=== PATIENT | female | born 1930 | race Caucasian/White ===

== ENCOUNTER 2017-06-18 09:47 | Emergency (ER) | payer MEDICARE, OTHER ==
[2017-06-18] MEDS ORDERED: Sodium Chloride 0.9% 10 ML Syringe FLUSH PRN (10:57)
--- NOTE | 2017-06-18 11:21 | EDM.PDOC ---
ED HPI GENERAL MEDICAL PROBLEM - General Chief Complaint: General Stated Complaint: LOW HEMOGLOBIN Time Seen by Provider: 06/18/17 10:27 Source of Information: Reports: Patient, Family History Limitations: Reports: No Limitations - History of Present Illness INITIAL COMMENTS - FREE TEXT/NARRATIVE: The patient presents with generalized weakness, shortness of breath, and anemia. Dr Bernard is her doctor and her Hgb has been going down. Last week it was 7.6. She had antibodies and Dr Bernard was going to talk to the decorator consultant. She is now more weak and more short of breath. She denies fever , chills, cough, nausea, vomiting or abdominal pain. She does not have an appetite. With any exertion she gets shortness of breath. She has no chest pain. She says her stools have been dark but she has been taking iron. Onset: Gradual Duration: Week(s): Severity: Moderate Improves with: Reports: Immobilization Worsens with: Reports: Movement Context: Reports: Activity Associated Symptoms: Reports: Shortness of Breath. Denies: Chest Pain, Cough, Fever/Chills, Headaches, Nausea/Vomiting - Related Data Allergies Allergy/AdvReac Type Severity Reaction Status Date / Time No Known Allergies Allergy Verified 10/18/15 16:19 Home Meds: Home Meds Allopurinol [Zyloprim] 100 mg PO DAILY 10/11/14 [History] Amitriptyline [Elavil] 50 mg PO BEDTIME 10/11/14 [History] Fluticasone/Salmeterol [Advair 100-50] 1 puff INH DAILY 10/11/14 [History] Furosemide [Lasix] 20 mg PO DAILY 10/11/14 [History] Omeprazole 20 mg PO BIDAC 10/11/14 [History] Hydrocodone/Acetaminophen [Hydrocodon-Acetaminophen 5-325] 1 each PO Q4H #5 tablet 04/15/15 [Rx] Enalapril [Vasotec] 5 mg PO DAILY 07/05/15 [History] Aspirin [Ecotrin] 1 tab PO DAILY 06/18/17 [History] Carvedilol [Carvedilol] 1 tab PO BID 06/18/17 [History] Iron Polysaccharides Complex [Ferrex 150] 1 cap PO DAILY 06/18/17 [History] Ursodiol [Ursodiol] 1 tab PO DAILY 06/18/17 [History] Past Medical History HEENT History: Reports: Hard of Hearing Cardiovascular History: Reports: Hypertension Respiratory History: Reports: COPD Gastrointestinal History: Reports: Other (See Below) Other Gastrointestinal History: esophageal strictures Genitourinary History: Reports: UTI, Recurrent Musculoskeletal History: Reports: Arthritis Hematologic History: Reports: Anemia Dermatologic History: Reports: Benign Melanoma - Past Surgical History HEENT Surgical History: Reports: Tonsillectomy GI Surgical History: Reports: Cholecystectomy, Colonoscopy, EGD, Esophageal Dilatation Female Surgical History: Reports: Mastectomy Musculoskeletal Surgical History: Reports: Hip Replacement, Knee Replacement, Shoulder Replacement Other Musculoskeletal Surgeries/Procedures:: spinal stenosis surgery Social & Family History - Tobacco Use Smoking Status *Q: Never Smoker Years of Tobacco use: 53 Used Tobacco, but Quit: Yes Month Tobacco Last Used: 13 yrs Second Hand Smoke Exposure: No - Caffeine Use Caffeine Use: Reports: Soda - Alcohol Use Days Per Week of Alcohol Use: 0 - Recreational Drug Use Recreational Drug Use: No ED ROS GENERAL - Review of Systems Review Of Systems: See Below Constitutional: Reports: No Symptoms HEENT: Reports: No Symptoms Respiratory: Reports: Shortness of Breath. Denies: Cough Cardiovascular: Reports: No Symptoms Endocrine: Reports: No Symptoms GI/Abdominal: Reports: No Symptoms : Reports: No Symptoms Musculoskeletal: Reports: No Symptoms Skin: Reports: No Symptoms ED EXAM, GENERAL - Physical Exam Exam: See Below Exam Limited By: No Limitations General Appearance: Alert, No Apparent Distress Ears: Normal External Exam Nose: Normal Inspection Head: Atraumatic, Normocephalic Neck: Normal Inspection Respiratory/Chest: No Respiratory Distress, Lungs Clear, Normal Breath Sounds Cardiovascular: Normal Peripheral Pulses, Regular Rate, Rhythm, No Edema GI/Abdominal: Soft, Non-Tender, No Organomegaly, No Mass Rectal (Female) Exam: Heme + Stool (Weak) Back Exam: Normal Inspection Extremities: Other (Areas of ecchymosis) Neurological: Alert, Oriented, No Motor/Sensory Deficits Skin Exam: Other (Areas of ecchymosis on her chest, arms and leg) Course - Vital Signs Last Recorded V/S: Last Vital Signs Temp 97.2 F 06/18/17 10:00 Pulse 75 06/18/17 10:00 Resp 22 H 06/18/17 10:00 BP 113/62 06/18/17 10:00 Pulse Ox 93 L 06/18/17 10:00 - Orders/Labs/Meds Orders: Active Orders 24 hr Category Date Time Status Peripheral IV Care [RC] . DIRECTED Care 06/18/17 10:57 Active TYPE AND SCREEN [BBK] Stat Lab 06/18/17 10:26 Results Sodium Chloride 0.9% [Saline Flush] Med 06/18/17 10:57 Active 10 ml FLUSH ASDIRECTED PRN Peripheral IV Insertion Adult [OM.PC] Routine Oth 06/18/17 10:57 Ordered Medication Orders Sodium Chloride (Saline Flush) 10 ml FLUSH ASDIRECTED PRN PRN Reason: Keep Vein Open Last Admin: 06/18/17 11:20 Dose: 10 ml Labs: Laboratory Tests 06/18/17 06/18/17 06/18/17 Range/Units 10:26 10:26 10:26 WBC 3.86 L (3.98-10.04) K/mm3 RBC 1.78 L (3.98-5.22) M/mm3 Hgb 6.7 L* (11.2-15.7) gm/L Hct 21.8 L (34.1-44.9) % MCV 122.5 H (79.4-94.8) fl MCH 37.6 H (25.6-32.2) pg MCHC 30.7 L (32.2-35.5) g/dl RDW Std Deviation 56.9 H (36.4-46.3) fL Plt Count 157 L (182-369) K/mm3 MPV 9.0 L (9.4-12.3) fl Neut % (Auto) 84.0 H (34.0-71.1) % Lymph % (Auto) 6.5 L (19.3-51.7) % [place] % (Auto) 6.7 (4.7-12.5) % Eos % (Auto) 2.3 (0.7-5.8) Baso % (Auto) 0.5 (0.1-1.2) % Neut # (Auto) 3.24 (1.56-6.13) K/mm3 Lymph # (Auto) 0.25 L (1.18-3.74) K/mm3 [place] # (Auto) 0.26 (0.24-0.36) K/mm3 Eos # (Auto) 0.09 (0.04-0.36) K/mm3 Baso # (Auto) 0.02 (0.01-0.08) K/mm3 Manual Slide Review Abnormal smear PT (8.0-13.0) SECONDS INR Sodium 142 (136-145) mEq/L Potassium 5.1 (3.5-5.1) mEq/L Chloride 109 H (98-107) mEq/L Carbon Dioxide 28 (21-32) mEq/L Anion Gap 10.1 (5-15) BUN 45 H (7-18) mg/dL Creatinine 1.8 H (0.55-1.02) mg/dL Est Cr Clr Drug Dosing 17.87 mL/min Estimated GFR (MDRD) 27 (>60) mL/min BUN/Creatinine Ratio 25.0 H (14-18) Glucose 117 H (83-115) mg/dL Calcium 8.4 L (8.5-10.1) mg/dL Total Bilirubin 1.2 H (0.2-1.0) mg/dL AST 18 (15-37) U/L ALT 17 (14-59) U/L Alkaline Phosphatase 61 (46-116) U/L Total Protein 5.0 L (6.4-8.2) g/dl Albumin 2.2 L (3.4-5.0) g/dl Globulin 2.8 gm/dL Albumin/Globulin Ratio 0.8 L (1-2) Blood Type A POSITIVE 06/18/17 Range/Units 10:26 WBC (3.98-10.04) K/mm3 RBC (3.98-5.22) M/mm3 Hgb (11.2-15.7) gm/L Hct (34.1-44.9) % MCV (79.4-94.8) fl MCH (25.6-32.2) pg MCHC (32.2-35.5) g/dl RDW Std Deviation (36.4-46.3) fL Plt Count (182-369) K/mm3 MPV (9.4-12.3) fl Neut % (Auto) (34.0-71.1) % Lymph % (Auto) (19.3-51.7) % [place] % (Auto) (4.7-12.5) % Eos % (Auto) (0.7-5.8) Baso % (Auto) (0.1-1.2) % Neut # (Auto) (1.56-6.13) K/mm3 Lymph # (Auto) (1.18-3.74) K/mm3 [place] # (Auto) (0.24-0.36) K/mm3 Eos # (Auto) (0.04-0.36) K/mm3 Baso # (Auto) (0.01-0.08) K/mm3 Manual Slide Review PT 9.9 (8.0-13.0) SECONDS INR 0.91 Sodium (136-145) mEq/L Potassium (3.5-5.1) mEq/L Chloride (98-107) mEq/L Carbon Dioxide (21-32) mEq/L Anion Gap (5-15) BUN (7-18) mg/dL Creatinine (0.55-1.02) mg/dL Est Cr Clr Drug Dosing mL/min Estimated GFR (MDRD) (>60) mL/min BUN/Creatinine Ratio (14-18) Glucose (83-115) mg/dL Calcium (8.5-10.1) mg/dL Total Bilirubin (0.2-1.0) mg/dL AST (15-37) U/L ALT (14-59) U/L Alkaline Phosphatase (46-116) U/L Total Protein (6.4-8.2) g/dl Albumin (3.4-5.0) g/dl Globulin gm/dL Albumin/Globulin Ratio (1-2) Blood Type Meds: Medications Generic Name Dose Route Start Last Admin Trade Name Bobbyq PRN Reason Stop Dose Admin Sodium Chloride 10 ml 06/18/17 10:57 06/18/17 11:20 Saline Flush FLUSH 10 ml ASDIRECTED PRN Administration Keep Vein Open - Re-Assessments/Exams Free Text/Narrative Re-Assessment/Exam: 06/18/17 12:12 I ordered an IV saline lock and labs. Her WBC was a little low at 3.86. Her Hgb was low at 6.7. Her platelets were a little low at 157. Her creatinine was elevated at 1.8. Her creatinine was that high before. Her glucose was 117. Her total bili was elevated at 1.2 Her stool guiac was weakly positive. Lab called and said she has antibodies in her blood and we will not be able to give her blood from here. I called [facility] in [place] and talked with Dr Cochran and he agreed to the transfer. 06/18/17 12:21 I wanted to send the patient by ambulance but she refused. She will got with family. Departure - Departure Time of Disposition: 12:30 Disposition: DC/Tfer to Acute Hospital 02 Condition: Fair Clinical Impression: Renal insufficiency, Dyspnea on exertion Anemia Qualifiers: Anemia type: other cause Other causes of anemia: other cause, not classified Qualified Code(s): D64.89 - Other specified anemias GI bleed Qualifiers: GI bleed type/associated pathology: unspecified gastrointestinal hemorrhage type Qualified Code(s): K92.2 - Gastrointestinal hemorrhage, unspecified - Discharge Information Referrals: Senthil Bernard Jr, MD [Primary Care Provider] - Forms: ED Department Discharge - My Orders Last 24 Hours: My Active Orders 06/18/17 10:26 TYPE AND SCREEN [BBK] Stat 06/18/17 10:57 Peripheral IV Care [RC] . DIRECTED Sodium Chloride 0.9% [Saline Flush] 10 ml FLUSH ASDIRECTED PRN Peripheral IV Insertion Adult [OM.PC] Routine - Assessment/Plan Last 24 Hours: My Active Orders 06/18/17 10:26 TYPE AND SCREEN [BBK] Stat 06/18/17 10:57 Peripheral IV Care [RC] . DIRECTED Sodium Chloride 0.9% [Saline Flush] 10 ml FLUSH ASDIRECTED PRN Peripheral IV Insertion Adult [OM.PC] Routine
[2017-06-18 13:18] VITALS: BP 153/56
== END 2017-06-18 13:15 ==
LOC: JD.ED 09:47
DX: K92.2 Gastrointestinal hemorrhage, unspecified (principal); D64.89 Other specified anemias; N28.9 Disorder of kidney and ureter, unspecified; R06.09 Other forms of dyspnea; I10 Essential (primary) hypertension; J44.9 Chronic obstructive pulmonary disease, unspecified; Z87.440 Personal history of urinary (tract) infections; Z90.49 Acquired absence of other specified parts of digestive tract; Z98.890 Other specified postprocedural states; Z96.649 Presence of unspecified artificial hip joint; Z79.899 Other long term (current) drug therapy; Z79.82 Long term (current) use of aspirin; Z96.659 Presence of unspecified artificial knee joint; Z96.619 Presence of unspecified artificial shoulder joint
CPT/HCPCS: 36415; 80053; 85025; 85610; 99285; J7050; 86850; 86870; 86900; 86901

== ENCOUNTER 2017-08-13 09:24 | Inpatient (IN) | payer MEDICARE, OTHER ==
[2017-08-13] MEDS ORDERED: Sodium Chloride 0.9% 10 ML Syringe FLUSH PRN (09:43)
--- NOTE | 2017-08-13 10:16 | EDM.PDOC ---
ED HPI GENERAL MEDICAL PROBLEM - General Chief Complaint: Fever Stated Complaint: [facility] Time Seen by Provider: 08/13/17 09:43 Source of Information: Reports: Patient, Family, RN Notes Reviewed (87-year-old female comes in with fever chills that started about 8 hours ago during the night. 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 She has other medical problems , see old records for details. She did have a blood transfusion 6 days ago. She is not coughing. Has been voiding somewhat more frequently. She feels more short of breath than usual. Chest or abdominal pain at this time. No nausea or vomiting this morning.) - History of Present Illness INITIAL COMMENTS - FREE TEXT/NARRATIVE: 87-year-old female has been brought in by ambulance for evaluation of fever, weakness and shortness of breath. She started with some fever and chills during the night. Temp was reportedly 101 early this morning. She has not been feeling well for the last month or 2 with diagnosis of "hemolytic anemia" last having had a transfusion last Thursday 6 days ago. Does have history of chronic CHF. She has been having increasing right leg discomfort the past several days and increasing redness with some mild weeping of the leg posteriorly for the last day or 2. She states she bruises very easily. She's not been coughing any more than usual. Denies nasal or sinus congestion or sore throat. No voiding dysuria but she does have voiding frequency. She also states her mouth feels very dry this morning. No nausea or vomiting. No current abdominal discomfort. - Related Data Allergies Allergy/AdvReac Type Severity Reaction Status Date / Time No Known Allergies Allergy Verified 08/13/17 09:29 Home Meds: Home Meds Allopurinol [Zyloprim] 100 mg PO DAILY 10/11/14 [History] Amitriptyline [Elavil] 25 - 50 mg PO BEDTIME 10/11/14 [History] Fluticasone/Salmeterol [Advair 100-50] 1 puff INH DAILY 10/11/14 [History] Furosemide [Lasix] 60 mg PO DAILY 10/11/14 [History] Omeprazole 20 mg PO BIDAC 10/11/14 [History] Enalapril [Vasotec] 5 mg PO DAILY 07/05/15 [History] Carvedilol [Carvedilol] 12.5 mg PO BID 06/18/17 [History] Iron Polysaccharides Complex [Ferrex 150] 1 cap PO DAILY 06/18/17 [History] Ursodiol [Ursodiol] 300 mg PO DAILY 06/18/17 [History] Aspirin [Adult Low Dose Aspirin EC] 324 mg PO DAILY 08/13/17 [History] Hydrocodone/Acetaminophen [Hydrocodon-Acetaminophen 5-325] 1 tab PO TID PRN 11/28 [History] L.acidoph,Paracasei, B.lactis [Probiotic] 1 cap PO DAILY 08/13/17 [History] Prednisone [IJD: Prednisone] 10 mg PO DAILY 08/13/17 [History] Vit A/Vit C/Vit E/Zinc/Copper [Icaps Areds Formula] 2 tab PO DAILY 08/13/17 [ History] Past Medical History HEENT History: Reports: Hard of Hearing Cardiovascular History: Reports: Hypertension Respiratory History: Reports: COPD Gastrointestinal History: Reports: Other (See Below) Other Gastrointestinal History: esophageal strictures Genitourinary History: Reports: UTI, Recurrent Musculoskeletal History: Reports: Arthritis Hematologic History: Reports: Anemia Dermatologic History: Reports: Benign Melanoma - Past Surgical History HEENT Surgical History: Reports: Tonsillectomy GI Surgical History: Reports: Cholecystectomy, Colonoscopy, EGD, Esophageal Dilatation Female Surgical History: Reports: Mastectomy Musculoskeletal Surgical History: Reports: Hip Replacement, Knee Replacement, Shoulder Replacement Other Musculoskeletal Surgeries/Procedures:: spinal stenosis surgery Social & Family History - Tobacco Use Smoking Status *Q: Never Smoker Years of Tobacco use: 53 Used Tobacco, but Quit: Yes Month Tobacco Last Used: 13 yrs Second Hand Smoke Exposure: No - Caffeine Use Caffeine Use: Reports: Soda - Alcohol Use Days Per Week of Alcohol Use: 0 - Recreational Drug Use Recreational Drug Use: No ED ROS GENERAL - Review of Systems Review Of Systems: See Below Constitutional: Reports: Fever HEENT: Denies: Sinus Problem, Throat Pain Respiratory: Reports: Shortness of Breath (Chronically). Denies: Cough Cardiovascular: Denies: Chest Pain Endocrine: Reports: Fatigue GI/Abdominal: Reports: Constipation (Chronically). Denies: Abdominal Pain, Nausea, Vomiting Musculoskeletal: Reports: Back Pain (Low back), Leg Pain (Right lower posterior leg) Skin: Reports: Erythema (Right posterior leg) Neurological: Reports: Dizziness, Weakness (Generalized). Denies: Trouble Speaking Hematologic/Lymphatic: Reports: Anemia ED EXAM, SEPSIS - Physical Exam Exam: See Below General Appearance: Alert, Mild Distress Throat/Mouth: Normal Inspection, Normal Oropharynx, Other (Oral mucosa somewhat dry) Head: Atraumatic. No: Facial Swelling Neck: Supple Respiratory/Chest: Respiratory Distress. No: Rales (Moderate tachypnea), Rhonchi, Wheezing Cardiovascular: Regular Rate, Rhythm, Tachycardia (Heart rate 103 on arrival) GI/Abdominal Exam: Soft, Non-Tender. No: Guarding Extremities: Leg Pain, Increased Warmth (Right posterior lower leg), Redness ( Right lower posterior leg), Other (Small area of weeping) Neurological: Alert, Oriented, No Motor/Sensory Deficits Skin: Warm, Dry EKG INTERPRETATION EKG Date: 08/13/17 Rhythm: NSR [place]: Normal P-Wave: Present QRS: Normal ST-T: Normal Course - Vital Signs Last Recorded V/S: Last Vital Signs Temp 99.4 F 08/13/17 09:30 Pulse 103 H 08/13/17 09:30 Resp 32 H 08/13/17 09:30 BP 156/66 H 08/13/17 09:30 Pulse Ox 94 L 08/13/17 09:30 - Orders/Labs/Meds Orders: Active Orders 24 hr Category Date Time Status EKG 12 Lead [EKG Documentation Completion] [RC] STAT Care 08/13/17 09:44 Active Peripheral IV Care [RC] . DIRECTED Care 08/13/17 09:45 Active CULTURE BLOOD [BC] Stat Lab 08/13/17 10:30 Received CULTURE BLOOD [BC] Stat Lab 08/13/17 10:45 Received Sodium Chloride 0.9% [Saline Flush] Med 08/13/17 09:43 Active 10 ml FLUSH ASDIRECTED PRN Peripheral IV Insertion Adult [OM.PC] Stat Oth 08/13/17 09:44 Ordered Medication Orders Sodium Chloride (Saline Flush) 10 ml FLUSH ASDIRECTED PRN PRN Reason: Keep Vein Open Last Admin: 08/13/17 10:27 Dose: 10 ml Labs: Laboratory Tests 08/13/17 08/13/17 08/13/17 Range/Units 10:07 10:07 10:23 WBC 9.61 (3.98-10.04) K/mm3 RBC 2.57 L (3.98-5.22) M/mm3 Hgb 9.0 L (11.2-15.7) gm/L Hct 28.3 L (34.1-44.9) % MCV 110.1 H (79.4-94.8) fl MCH 35.0 H (25.6-32.2) pg MCHC 31.8 L (32.2-35.5) g/dl RDW Std Deviation 53.4 H (36.4-46.3) fL Plt Count 131 L (182-369) K/mm3 MPV 9.2 L (9.4-12.3) fl Neut % (Auto) 91.0 H (34.0-71.1) % Lymph % (Auto) 1.6 L (19.3-51.7) % [place] % (Auto) 7.0 (4.7-12.5) % Eos % (Auto) 0.1 L (0.7-5.8) Baso % (Auto) 0.1 (0.1-1.2) % Neut # (Auto) 8.75 H (1.56-6.13) K/mm3 Lymph # (Auto) 0.15 L (1.18-3.74) K/mm3 [place] # (Auto) 0.67 H (0.24-0.36) K/mm3 Eos # (Auto) 0.01 L (0.04-0.36) K/mm3 Baso # (Auto) 0.01 (0.01-0.08) K/mm3 Manual Slide Review Abnormal smear Sodium 144 (136-145) mEq/L Potassium 3.9 (3.5-5.1) mEq/L Chloride 108 H (98-107) mEq/L Carbon Dioxide 28 (21-32) mEq/L Anion Gap 11.9 (5-15) BUN 39 H (7-18) mg/dL Creatinine 1.4 H (0.55-1.02) mg/dL Est Cr Clr Drug Dosing 23.99 mL/min Estimated GFR (MDRD) 35 (>60) mL/min BUN/Creatinine Ratio 27.9 H (14-18) Glucose 98 (83-115) mg/dL Lactic Acid (0.4-2.0) mmol/L Calcium 7.8 L (8.5-10.1) mg/dL Total Bilirubin 0.8 (0.2-1.0) mg/dL AST 21 (15-37) U/L ALT 16 (14-59) U/L Alkaline Phosphatase 54 (46-116) U/L C-Reactive Protein 1.8 H* (<1.0) mg/dL NT-Pro-B Natriuret Pep 3860 H (0-450) pg/mL Total Protein 4.3 L (6.4-8.2) g/dl Albumin 1.9 L (3.4-5.0) g/dl Globulin 2.4 gm/dL Albumin/Globulin Ratio 0.8 L (1-2) Urine Color Yellow (Yellow) Urine Appearance Slt cloudy H (Clear) Urine pH 6.0 (5.0-8.0) Ur Specific [place] 1.020 (1.005-1.030) Urine Protein 3+ H (Negative) Urine Glucose (UA) Negative (Negative) Urine Ketones Negative (Negative) Urine Occult Blood 1+ H (Negative) Urine Nitrite Negative (Negative) Urine Bilirubin Negative (Negative) Urine Urobilinogen 4.0 H (0.2-1.0) Ur Leukocyte Esterase Negative (Negative) Urine RBC 5-10 H (0-5) /hpf Urine WBC 0-5 (0-5) /hpf Ur Epithelial Cells 0-5 (0-5) /hpf Amorphous Sediment Moderate H (NOT SEEN) /hpf Urine Bacteria Moderate H (FEW) /hpf Urine Mucus Not seen (FEW) /hpf 08/13/17 Range/Units 10:30 WBC (3.98-10.04) K/mm3 RBC (3.98-5.22) M/mm3 Hgb (11.2-15.7) gm/L Hct (34.1-44.9) % MCV (79.4-94.8) fl MCH (25.6-32.2) pg MCHC (32.2-35.5) g/dl RDW Std Deviation (36.4-46.3) fL Plt Count (182-369) K/mm3 MPV (9.4-12.3) fl Neut % (Auto) (34.0-71.1) % Lymph % (Auto) (19.3-51.7) % [place] % (Auto) (4.7-12.5) % Eos % (Auto) (0.7-5.8) Baso % (Auto) (0.1-1.2) % Neut # (Auto) (1.56-6.13) K/mm3 Lymph # (Auto) (1.18-3.74) K/mm3 [place] # (Auto) (0.24-0.36) K/mm3 Eos # (Auto) (0.04-0.36) K/mm3 Baso # (Auto) (0.01-0.08) K/mm3 Manual Slide Review Sodium (136-145) mEq/L Potassium (3.5-5.1) mEq/L Chloride (98-107) mEq/L Carbon Dioxide (21-32) mEq/L Anion Gap (5-15) BUN (7-18) mg/dL Creatinine (0.55-1.02) mg/dL Est Cr Clr Drug Dosing mL/min Estimated GFR (MDRD) (>60) mL/min BUN/Creatinine Ratio (14-18) Glucose (83-115) mg/dL Lactic Acid 1.5 (0.4-2.0) mmol/L Calcium (8.5-10.1) mg/dL Total Bilirubin (0.2-1.0) mg/dL AST (15-37) U/L ALT (14-59) U/L Alkaline Phosphatase (46-116) U/L C-Reactive Protein (<1.0) mg/dL NT-Pro-B Natriuret Pep (0-450) pg/mL Total Protein (6.4-8.2) g/dl Albumin (3.4-5.0) g/dl Globulin gm/dL Albumin/Globulin Ratio (1-2) Urine Color (Yellow) Urine Appearance (Clear) Urine pH (5.0-8.0) Ur Specific [place] (1.005-1.030) Urine Protein (Negative) Urine Glucose (UA) (Negative) Urine Ketones (Negative) Urine Occult Blood (Negative) Urine Nitrite (Negative) Urine Bilirubin (Negative) Urine Urobilinogen (0.2-1.0) Ur Leukocyte Esterase (Negative) Urine RBC (0-5) /hpf Urine WBC (0-5) /hpf Ur Epithelial Cells (0-5) /hpf Amorphous Sediment (NOT SEEN) /hpf Urine Bacteria (FEW) /hpf Urine Mucus (FEW) /hpf Meds: Medications Generic Name Dose Route Start Last Admin Trade Name Freq PRN Reason Stop Dose Admin Sodium Chloride 10 ml 08/13/17 09:43 08/13/17 10:27 Saline Flush FLUSH 10 ml ASDIRECTED PRN Administration Keep Vein Open Discontinued Medications Generic Name Dose Route Start Last Admin Trade Name Freq PRN Reason Stop Dose Admin Piperacillin Sod/Tazobactam 100 mls @ 200 mls/hr 08/13/17 12:51 08/13/17 13: 33 Sod 4.5 gm/ Sodium Chloride IV 08/13/17 13:20 200 mls/hr ONETIME ONE Administration Sodium Chloride Confirm 08/13/17 13:21 08/13/17 13:34 Normal Saline Administered 08/13/17 13:22 Not Given Dose 100 mls @ as directed .ROUTE .[facility] - Re-Assessments/Exams Free Text/Narrative Re-Assessment/Exam: 08/13/17 13:06. White blood count came back high normal at 9600, hemoglobin 9.0. Lactic acid 1.5. Catheter UA did show bacteria so she does have at least a low-grade UTI. I do believe her main problem at this time is the cellulitis of her right lower leg. Zosyn 4.5 g IV has been ordered. I discussed with daughter and patient CODE STATUS and she does not want to be intubated or defibrillated, therefore DNR status at this time. Blood cultures 2 were ordered. Believe she is septic. Although she was sepsis alert I did not bolus her with fluid due to her underlying congestive heart failure, tachypnea on arrival to ED. With the cellulitis she does qualify for inpatient admission. Patient will be admitted at this time. Departure - Departure Time of Disposition: 12:52 Disposition: Admitted As Inpatient 66 Clinical Impression: Cellulitis Qualifiers: Site of cellulitis: extremity Site of cellulitis of extremity: lower extremity Laterality: right Qualified Code(s): L03.115 - Cellulitis of right lower limb UTI (urinary tract infection) Qualifiers: Urinary tract infection type: acute cystitis Hematuria presence: without hematuria Qualified Code(s): N30.00 - Acute cystitis without hematuria Congestive heart failure Qualifiers: Congestive heart failure type: unspecified congestive heart failure type Congestive heart failure chronicity: acute on chronic Qualified Code(s): I50.9 - Heart failure, unspecified Anemia Qualifiers: Anemia type: other cause Other causes of anemia: other cause, not classified Qualified Code(s): D64.89 - Other specified anemias - Discharge Information Referrals: Judie Green [Primary Care Provider] - Forms: ED Department Discharge - My Orders Last 24 Hours: My Active Orders 08/13/17 09:43 Sodium Chloride 0.9% [Saline Flush] 10 ml FLUSH ASDIRECTED PRN 08/13/17 09:44 EKG 12 Lead [EKG Documentation Completion] [RC] STAT Peripheral IV Insertion Adult [OM.PC] Stat 08/13/17 09:45 Peripheral IV Care [RC] . DIRECTED 08/13/17 10:30 CULTURE BLOOD [BC] Stat 08/13/17 10:45 CULTURE BLOOD [BC] Stat - Assessment/Plan Last 24 Hours: My Active Orders 08/13/17 09:43 Sodium Chloride 0.9% [Saline Flush] 10 ml FLUSH ASDIRECTED PRN 08/13/17 09:44 EKG 12 Lead [EKG Documentation Completion] [RC] STAT Peripheral IV Insertion Adult [OM.PC] Stat 08/13/17 09:45 Peripheral IV Care [RC] . DIRECTED 08/13/17 10:30 CULTURE BLOOD [BC] Stat 08/13/17 10:45 CULTURE BLOOD [BC] Stat
--- NOTE | 2017-08-13 10:31 | CR ---
Chest: Portable view of the chest was obtained. Comparison: Previous chest x-ray of 10/18/15. Stable scarring within the right mid lung is seen. Blunting of the right lateral costophrenic angle is seen which is stable. Lungs otherwise are clear. Bilateral shoulder prosthesis are seen. Heart size is normal. Tortuous thoracic aorta is seen. Bony structures are osteopenic. Slight scoliosis is noted. Degenerative change is scattered within the spine. Impression: 1. Findings as noted above. No significant change is seen from prior chest x-ray. Nothing acute is identified. Diagnostic code #2
[2017-08-13] MEDS ORDERED: Piperacillin/Tazobactam 4.5 GM in Sodium Chloride 0.9% 100 ML IV ONE (12:51)
[2017-08-13] MEDS ORDERED: Sodium Chloride 0.9% 100 ML ONE (13:21)
[2017-08-13] MEDS ORDERED: Albuterol/Ipratropium 3.0-0.5 MG/3 ML Neb Soln NEB PRN (16:08)
[2017-08-13] MEDS ORDERED: Acetaminophen 325 MG Tab PO PRN (16:08)
[2017-08-13] MEDS ORDERED: Ondansetron 4 MG Tab.DIS PO PRN (16:08)
[2017-08-13] MEDS ORDERED: Docusate Sodium 100 MG Cap PO PRN (16:08)
[2017-08-13] MEDS ORDERED: Ondansetron 4 MG/2 ML SDV IV PRN (16:08)
[2017-08-13] MEDS ORDERED: Temazepam 7.5 MG Cap PO PRN (16:08)
[2017-08-13] MEDS ORDERED: Polyethylene Glycol 3350 Powder 17 GM Packet PO PRN (16:08)
[2017-08-13] MEDS ORDERED: Acetaminophen/HYDROcodone 325-5 MG Tab PO PRN (16:08)
[2017-08-13] MEDS ORDERED: Bisacodyl 5 MG Tab PO PRN (16:08)
[2017-08-13] MEDS ORDERED: Furosemide 40 MG/4 ML VIAL IVPUSH ONE ×2 (16:14→21:35)
[2017-08-13] MEDS ORDERED: Metoprolol Tartrate 5 MG/5 ML SDV IVPUSH PRN (16:25)
[2017-08-13] MEDS ORDERED: hydrALAZINE 10 MG Tab PO PRN (16:25)
--- NOTE | 2017-08-13 16:39 | PCM.HP ---
H&P History of Present Illness - General Date of Service: 08/13/17 Admit Problem/Dx: Admission Diagnosis/Problem Admission Diagnosis/Problem Cellulitis of right lower extremity Source of Information: Patient, Old Records, Provider, RN, RN Notes Reviewed History Limitations: Reports: No Limitations - History of Present Illness Initial Comments - Free Text/Narative: Jill Shankar is an 87 yo female who presented to our ED today (08/13/17) via ambulance with a fever, weakness, and shortness of breath. Fever and chills are poorly started last night with a temperature of 101. She's been feeling poor for the last couple of months with a diagnosis of "hemolytic anemia. She received transfusion last Thursday, 6 days ago she is a history of chronic heart failure. She reports increased right leg discomfort with redness and mild weeping posteriorly. This has been going on for 2 days. She reports very easy bruising. She has a chronic cough but has not been coughing more than usual, denies nasal or sinus congestion. She denies sore throat. Denies dysuria but does report increased voiding frequency. No nausea or vomiting. No current abdominal discomfort. Upon presentation to the ED and picture was 99.4. pulse was tachycardic at 103. Respirations were At 32. Blood pressure was elevated at 156/66. Pulse ox is low at 94. Twelve-lead EKG was obtained and interpreted by ED provider as normal sinus rhythm. Labs are obtained: White blood cell was normal at 9.61. Hemoglobin low at 9. Hematocrit low at 20.3. She was macrocytic. Platelets are low at 131,000. Neutrophils elevated at 91. Sodium normal at 144. Potassium normal at 3.9. Chloride high at 108. Carbon dioxide normal at 28. Anion gap normal at 11.9. BUN elevated at 39. Creatinine elevated at 1.4. EGFR 35. Glucose normal at 98. Lactic acid was 1.5. Calcium low at 7.8. Bilirubin normal at 0.8. Liver enzymes were normal with AST at 21, ALT at 16, alkaline phosphatase at 54. CRP was elevated at 8.1. ProBNP elevated at 3860. Albumin was low at 1.9. She does appear to have a UTI as well. Zosyn was started in the ED. Blood cultures 2 were obtained. She carries a history of heart failure, hypertension, COPD, esophageal strictures, current UTIs, arthritis, anemia, melanoma. Of note she has had a prior right knee replacement. She is a former smoker. She was subsequently admitted to a medical floor with telemetry. Her primary care provider is Dr. Bernard at [facility] in [place]. CODE STATUS is DNR/DNI. - Related Data Allergies/Adverse Reactions: Allergies Allergy/AdvReac Type Severity Reaction Status Date / Time No Known Allergies Allergy Verified 08/13/17 09:29 Home Medications: Home Meds Allopurinol [Zyloprim] 100 mg PO DAILY 10/11/14 [History] Amitriptyline [Elavil] 25 - 50 mg PO BEDTIME 10/11/14 [History] Fluticasone/Salmeterol [Advair 100-50] 1 puff INH DAILY 10/11/14 [History] Furosemide [Lasix] 60 mg PO DAILY 10/11/14 [History] Omeprazole 20 mg PO BIDAC 10/11/14 [History] Enalapril [Vasotec] 5 mg PO DAILY 07/05/15 [History] Carvedilol [Carvedilol] 12.5 mg PO BID 06/18/17 [History] Iron Polysaccharides Complex [Ferrex 150] 1 cap PO DAILY 06/18/17 [History] Ursodiol [Ursodiol] 300 mg PO DAILY 06/18/17 [History] Aspirin [Adult Low Dose Aspirin EC] 324 mg PO DAILY 08/13/17 [History] Hydrocodone/Acetaminophen [Hydrocodon-Acetaminophen 5-325] 1 tab PO TID PRN 11/28 [History] L.acidoph,Paracasei, B.lactis [Probiotic] 1 cap PO DAILY 08/13/17 [History] Prednisone [IJD: Prednisone] 10 mg PO DAILY 08/13/17 [History] Vit A/Vit C/Vit E/Zinc/Copper [Icaps Areds Formula] 2 tab PO DAILY 08/13/17 [ History] Past Medical History HEENT History: Reports: Hard of Hearing Cardiovascular History: Reports: Hypertension Respiratory History: Reports: COPD Gastrointestinal History: Reports: Other (See Below) Other Gastrointestinal History: esophageal strictures Genitourinary History: Reports: UTI, Recurrent Musculoskeletal History: Reports: Arthritis Hematologic History: Reports: Anemia Dermatologic History: Reports: Benign Melanoma - Past Surgical History HEENT Surgical History: Reports: Tonsillectomy GI Surgical History: Reports: Cholecystectomy, Colonoscopy, EGD, Esophageal Dilatation Female Surgical History: Reports: Mastectomy Musculoskeletal Surgical History: Reports: Hip Replacement, Knee Replacement, Shoulder Replacement Other Musculoskeletal Surgeries/Procedures:: spinal stenosis surgery Social & Family History - Tobacco Use Smoking Status *Q: Never Smoker Years of Tobacco use: 53 Used Tobacco, but Quit: Yes Month Tobacco Last Used: 13 yrs Second Hand Smoke Exposure: No - Caffeine Use Caffeine Use: Reports: Soda - Alcohol Use Days Per Week of Alcohol Use: 0 - Recreational Drug Use Recreational Drug Use: No H&P Review of Systems - Review of Systems: Review Of Systems: See Below General: Reports: Fever, Chills, Malaise, Weakness, Fatigue, Decreased Appetite. Denies: Night Sweats, Weight Loss, Weight Gain HEENT: Reports: No Symptoms. Denies: Contact Lenses, Dysphasia, Ear Pain, Eye Pain, Hearing Changes, Rhinitis, Post Nasal Drip, Sinus Congestion, Sore Throat Pulmonary: Reports: Shortness of Breath, Cough (chronic but not worse than normal ). Denies: Wheezing, Pleuritic Chest Pain, Sputum Cardiovascular: Reports: No Symptoms. Denies: Chest Pain, Palpitations, Dyspnea on Exertion, PND, Edema, Lightheadedness Gastrointestinal: Reports: Diarrhea (Chronic but not worse than noramal ). Denies: Abdominal Pain, Anorexia, Constipation, Difficulty Swallowing, Distension, Melena, Nausea, Vomiting Genitourinary: Reports: Frequency. Denies: Dysuria, Burning, Pain, Urgency, Incontinence Musculoskeletal: Denies: No Symptoms, Neck Pain, Shoulder Pain, Arm Pain, Back Pain, Hand Pain, Leg Pain Skin: Reports: Bruising, Erythema (right lower leg ), Wound (fluid weeping from right posterior leg - reports crusted now. ). Denies: Cyanosis, Jaundice, Diaphoresis, Pruritis, Urticaria Psychiatric: Reports: No Symptoms. Denies: Confusion, Depression, Mood Lability , Anxiety, Agitation, Hallucinations Neurological: Reports: No Symptoms. Denies: Confusion, Dizziness, Headache, Numbness, Paresthesia, Pre-Existing Deficit, Seizure, Trouble Speaking, Difficulty Walking, Change in Speech Hematologic/Lymphatic: Reports: Anemia, Easy Bleeding, Easy Bruising Immunologic: Reports: No Symptoms Review of Systems Comment:: Patient reports she feels okay although she is slightly short of breath. Exam - Exam Exam: See Below - Vital Signs Vital Signs: Last Vital Signs Temp 99.4 F 08/13/17 09:30 Pulse 103 H 08/13/17 09:30 Resp 32 H 08/13/17 09:30 BP 156/66 H 08/13/17 09:30 Pulse Ox 94 L 08/13/17 09:30 Weight: 125 lb - Exam Quality Assessment: Supplemental Oxygen, DVT Prophylaxis General: Alert, Oriented, Cooperative. No: Mild Distress HEENT: Conjunctiva Clear, EACs Clear, EOMI, Hearing Intact, Mucosa Moist & [place] , Nares Patent, Normal Nasal Septum, Posterior Pharynx Clear, Pupils Equal, Pupils Reactive Neck: Supple, Trachea Midline Lungs: Clear to Auscultation, Normal Respiratory Effort. No: Crackles, Rales, Rhonchi, Rub, Stridor, Wheezing Cardiovascular: Regular Rate, Regular Rhythm GI/Abdominal Exam: Normal Bowel Sounds, Soft, Non-Tender, No Organomegaly, No Distention, No Abnormal Bruit, No Mass (Female) Exam: Deferred Rectal (Female) Exam: Deferred Back Exam: Normal Inspection, Decreased Range of Motion, Other (Scattered bruises throughout) Extremities: Normal Range of Motion, Normal Capillary Refill, Pedal Edema (2+), Increased Warmth (Right posterior leg), Redness (Right posterior leg), Other ( Color changes to bilateral legs which appear consistent with chronic venous stasis, surgical scar on right knee from prior TKA ) Peripheral Pulses: 1+: Radial (L), Radial (R), Posterior Tibial (L), Posterior Tibial (R), Dorsalis Pedis (L), Dorsalis Pedis (R) Skin: Warm, Dry, Other (Scattered bruising throughout) Neurological: Cranial Nerves Intact (Grossly) Neuro Extensive - Mental Status: Alert, Oriented x3, Normal Mood/Affect, Normal Cognition, Memory Intact Neuro Extensive - Motor, Sensory, Reflexes: CN II-XII Intact (Grossly) Psychiatric: Alert, Normal Affect, Normal Mood Physical Exam Comments:: She is examined while lying in bed. - Patient Data Result Diagrams: 08/13/17 10:07 08/13/17 10:07 *Q Meaningful Use (ADM) - VTE *Q VTE Criteria *Q: - Stroke *Q Stroke Criteria *Q: - AMI *Q AMI Criteria *Q: - Problem List (1) Cellulitis SNOMED Code(s): 496073493 ICD Code: L03.90 - CELLULITIS, UNSPECIFIED Status: Acute Priority: High Current Visit: Yes Qualifiers: Site of cellulitis: extremity Site of cellulitis of extremity: lower extremity Laterality: right Qualified Code(s): L03.115 - Cellulitis of right lower limb (2) UTI (urinary tract infection) SNOMED Code(s): 29843935 ICD Code: N39.0 - URINARY TRACT INFECTION, SITE NOT SPECIFIED Status: Acute Priority: High Current Visit: Yes Qualifiers: Urinary tract infection type: acute cystitis Hematuria presence: without hematuria Qualified Code(s): N30.00 - Acute cystitis without hematuria (3) Anemia SNOMED Code(s): 861844223 ICD Code: D64.9 - ANEMIA, UNSPECIFIED Status: Acute Priority: Low Current Visit: Yes Qualifiers: Anemia type: other cause Other causes of anemia: other cause, not classified Qualified Code(s): D64.89 - Other specified anemias (4) Congestive heart failure SNOMED Code(s): 12076967 ICD Code: I50.9 - HEART FAILURE, UNSPECIFIED Status: Acute Priority: Medium Current Visit: Yes Qualifiers: Congestive heart failure type: unspecified congestive heart failure type Congestive heart failure chronicity: acute on chronic Qualified Code(s): I50.9 - Heart failure, unspecified (5) CKD (chronic kidney disease) stage 3, GFR 30-59 ml/min SNOMED Code(s): 851109762 ICD Code: N18.3 - CHRONIC KIDNEY DISEASE, STAGE 3 (MODERATE) Status: Chronic Priority: Medium Current Visit: Yes Problem List Initiated/Reviewed/Updated: Yes Orders Last 24hrs: Active Orders 24 hr Category Date Time Status Famotidine [Pepcid] Med 08/13/17 16:30 Ordered 20 mg PO BID Metoprolol Tartrate [Lopressor] Med 08/13/17 16:25 Ordered 5 mg IVPUSH Q4H PRN Piperacillin/Tazobactam [Zosyn] 4.5 gm Med 08/13/17 16:30 Ordered Sodium Chloride 0.9% [Normal Saline] 100 ml IV Q8H hydrALAZINE [Apresoline] Med 08/13/17 16:25 Ordered 10 mg PO Q6H PRN Medication Orders Acetaminophen (Tylenol) 650 mg PO Q4H PRN PRN Reason: Pain (Mild 1-3)/fever Hydrocodone Bitart/Acetaminophen ([place] 325-5 Mg) 1 tab PO Q4H PRN PRN Reason: Pain (moderate 4-6) Albuterol/Ipratropium (Duoneb 3.0-0.5 Mg/3 Ml) 3 ml NEB Q4H PRN PRN Reason: Shortness Of Breath/wheezing Bisacodyl (Dulcolax) 5 mg PO DAILY PRN PRN Reason: Constipation Docusate Sodium (Colace) 100 mg PO BID PRN PRN Reason: Constipation Enoxaparin Sodium (Lovenox) 30 mg SUBCUT Q24H [facility] Famotidine (Pepcid) 20 mg PO BID [facility] Hydralazine HCl (Apresoline) 10 mg PO Q6H PRN PRN Reason: Hypertension Piperacillin Sod/Tazobactam (Sod 4.5 gm/ Sodium Chloride) 100 mls @ 25 mls/hr IV Q8H [facility] Metoprolol Tartrate (Lopressor) 5 mg IVPUSH Q4H PRN PRN Reason: Tachycardia Ondansetron HCl (Zofran Odt) 4 mg PO Q6H PRN PRN Reason: nausea, able to take PO Ondansetron HCl (Zofran) 4 mg IV Q6H PRN PRN Reason: Nausea/Vomiting Polyethylene Glycol (Miralax) 17 gm PO DAILY PRN PRN Reason: Constipation Senna/Docusate Sodium (Senna Plus) 1 tab PO BID PRN PRN Reason: Constipation Sodium Chloride (Saline Flush) 10 ml FLUSH ASDIRECTED PRN PRN Reason: Keep Vein Open Last Admin: 08/13/17 10:27 Dose: 10 ml Temazepam (Restoril) 7.5 mg PO BEDTIME PRN PRN Reason: Sleep Assessment/Plan Comment:: I/P Acute: Cellulitis -Pain/erythema/weeping of right posterior lower leg for several days -Patient reports fever at home, temp 99.4 in ED -Bilateral pigmentation changes - suspect chronic venous stasis -Tachypneic and tachycardic in ED on arrival -Lactic acid 1.5 -WBC 9.61 although she does appear to be otherwise pancytopenic, so this may skew results -Zosyn 4.5g IV started in ED. Will continue Q8HR here -Would like to culture wound but it appears to have dried now - will monitor -Blood cultures x2 obtained in ED - will await results -Of note - she has had prior right TKA UTI -Reports increased frequency, denies dysuria -Hx/o recurrent UTIs -UA in ED positive -Zosyn should cover -Culture obtained - awaiting results Heart failure -Acute on chronic -Hx/o CHF -pro-BNP 3860 in ED -On home lasix and Enalapril. -2+ pitting edema on floor -Will order 20 mg IVP of lasix now and monitor response -Low oxygen saturations - On 2L now, attempt to wean as baseline is no O2 - consider CHF vs. worsening COPD as cause -Low sodium/heart healthy diet -Last echo in our system from 10/2014 -LVEF 30-35% -Moderately decreased left ventricular systolic function -Elevated left atrial left ventricular end-diastolic pressure -Left ventricular internal cavity size is dilated in systole -Global hypokinesia with more severe hypokinesia in the mid and apical septum suggesting CAD. -Moderately dilated left atrium -Mild mitral valve regurgitation -Right ventricle systolic pressure is unable to be determined -Inferior vena caval normal sized with respiratory size variation greater than 50% -Attempt to locate more recent echo - consider new echo Chronic: CKD, Stage III -Appears to be at baseline -Caution when diuresing. -Continue home lasix and ACEI -Avoid nephrotoxic drugs if possible HTN - stable COPD esophageal strictures Recurrent UTIs Arthritis Anemia -Blood transfusion last thursday (6 days before admission), managed by Dr. Penny at [facility]. Plan: Admit medical floor on telemetry CM/SW for discharge planning PT/OT GI prophylaxis - pepcid, will hold PPI DVT/PE prophylaxis - Avoid SCD and CINDY hose on right leg. Lovenox Home medicaitons as ordered Other orders as above Routine AM labs Code Status: DNR/DNI. Her PCP is Dr. Bernard at [facility] here in [place]
[2017-08-13] MEDS: Enoxaparin 30 MG/0.3 ML Syringe SUBCUT SCH ×2 (16:56→18:00)
[2017-08-13] MEDS ORDERED: Famotidine 20 MG Tab PO SCH (21:00)
[2017-08-13] MEDS: Piperacillin/Tazobactam 4.5 GM in Sodium Chloride 0.9% 100 ML IV SCH (21:27)
[2017-08-13] MEDS: Amitriptyline 25 MG Tab PO SCH (21:27)
[2017-08-13] MEDS: Carvedilol 12.5 MG Tab PO SCH (21:28)
[2017-08-14] MEDS: Piperacillin/Tazobactam 4.5 GM in Sodium Chloride 0.9% 100 ML IV SCH (05:18)
[2017-08-14] MEDS ORDERED: Bumetanide 1 MG/4 ML MDV IVPUSH ONE (07:00)
[2017-08-14] MEDS ORDERED: Furosemide 40 MG/4 ML VIAL IVPUSH ONE (07:00)
[2017-08-14] MEDS ORDERED: Pneumococcal 13-Valent Conjugate Vaccine 0.5 ML Syringe IM ONE (08:38)
[2017-08-14] MEDS ORDERED: ACIDOPH PARACASEI B LACTIS PO SCH (09:00)
[2017-08-14] MEDS ORDERED: Enalapril 5 MG Tab PO SCH (09:00)
[2017-08-14] MEDS ORDERED: predniSONE 10 MG Tab PO SCH (09:00)
[2017-08-14] MEDS: Formoterol/Mometasone 100-5 MCG 8.8 GM Inhaler IH SCH ×2 (09:00→20:55)
[2017-08-14] MEDS ORDERED: Furosemide 40 MG Tab PO SCH ×2 (09:00)
[2017-08-14] MEDS ORDERED: URSODIOL 300 MG PO SCH (09:00)
[2017-08-14] MEDS: Famotidine 20 MG Tab PO SCH (09:45)
[2017-08-14] MEDS: Saccharomyces Boulardii (Probiotic) 250 MG Cap PO SCH ×2 (09:46→21:55)
[2017-08-14] MEDS: Carvedilol 12.5 MG Tab PO SCH ×2 (09:46→21:54)
[2017-08-14] MEDS: Aspirin 81 MG Tab.EC PO SCH (09:46)
[2017-08-14] MEDS: Iron Polysaccharides Complex 150 MG Cap PO SCH (09:46)
[2017-08-14] MEDS ORDERED: FLU Vacc TS 2017-18 (65yr UP)/PF 180 MCG/0.5 ML Syringe IM ONE (10:00)
[2017-08-14] MEDS ORDERED: Piperacillin/Tazobactam 4.5 GM in Dextrose 5% in Water 100 ML IV SCH ×2 (14:00)
[2017-08-14] MEDS: Clindamycin Phosphate 600 MG in Dextrose 5% in Water 100 ML IV SCH ×4 (14:23→21:55)
--- NOTE | 2017-08-14 17:24 | PCM.PN ---
- General Info Date of Service: 08/14/17 Functional Status: Reports: Tolerating Diet - Review of Systems General: Reports: Weakness, Fatigue HEENT: Reports: No Symptoms Pulmonary: Reports: Shortness of Breath Cardiovascular: Reports: No Symptoms Gastrointestinal: Reports: No Symptoms Genitourinary: Reports: No Symptoms Musculoskeletal: Reports: No Symptoms Skin: Reports: No Symptoms Neurological: Reports: Weakness Psychiatric: Reports: No Symptoms - Patient Data Vitals - Most Recent: Last Vital Signs Temp 36.6 C 08/14/17 03:17 Pulse 86 08/14/17 09:46 Resp 16 08/14/17 03:17 BP 138/63 08/14/17 09:46 Pulse Ox 99 08/14/17 03:17 Weight - Most Recent: 56.245 kg I&O - Last 24 Hours: Intake & Output 08/14/17 08/14/17 08/14/17 06:59 14:59 22:59 Intake Total 437 360 400 Output Total 400 Balance 37 360 400 Lab Results Last 24 Hours: Laboratory Results - last 24 hr 08/13/17 08/14/17 08/14/17 Range/Units 18:54 05:40 05:40 WBC 6.81 (3.98-10.04) K/mm3 RBC 2.44 L (3.98-5.22) M/mm3 Hgb 8.4 L (11.2-15.7) gm/L Hct 27.1 L (34.1-44.9) % MCV 111.1 H (79.4-94.8) fl MCH 34.4 H (25.6-32.2) pg MCHC 31.0 L (32.2-35.5) g/dl RDW Std Deviation 53.5 H (36.4-46.3) fL Plt Count 120 L (182-369) K/mm3 MPV 9.1 L (9.4-12.3) fl Neut % (Auto) 87.8 H (34.0-71.1) % Lymph % (Auto) 4.1 L (19.3-51.7) % [place] % (Auto) 7.6 (4.7-12.5) % Eos % (Auto) 0.3 L (0.7-5.8) Baso % (Auto) 0.1 (0.1-1.2) % Neut # (Auto) 5.97 (1.56-6.13) K/mm3 Lymph # (Auto) 0.28 L (1.18-3.74) K/mm3 [place] # (Auto) 0.52 H (0.24-0.36) K/mm3 Eos # (Auto) 0.02 L (0.04-0.36) K/mm3 Baso # (Auto) 0.01 (0.01-0.08) K/mm3 Manual Slide Review Abnormal smear Sodium 143 (136-145) mEq/L Potassium 3.9 (3.5-5.1) mEq/L Chloride 109 H (98-107) mEq/L Carbon Dioxide 28 (21-32) mEq/L Anion Gap 9.9 (5-15) BUN 40 H (7-18) mg/dL Creatinine 1.6 H (0.55-1.02) mg/dL Est Cr Clr Drug Dosing 20.99 mL/min Estimated GFR (MDRD) 30 (>60) mL/min BUN/Creatinine Ratio 25.0 H (14-18) Glucose 85 (83-115) mg/dL Calcium 7.9 L (8.5-10.1) mg/dL Magnesium 2.0 (1.8-2.4) mg/dl C-Reactive Protein 17.5 H* (<1.0) mg/dL NT-Pro-B Natriuret Pep 8621 H 7013 H (0-450) pg/mL Med Orders - Current: Current Medications Acetaminophen (Tylenol) 650 mg PO Q4H PRN PRN Reason: Pain (Mild 1-3)/fever Hydrocodone Bitart/Acetaminophen ([place] 325-5 Mg) 1 tab PO Q4H PRN PRN Reason: Pain (moderate 4-6) Last Admin: 08/14/17 01:25 Dose: 1 tab Albuterol/Ipratropium (Duoneb 3.0-0.5 Mg/3 Ml) 3 ml NEB Q4H PRN PRN Reason: Shortness Of Breath/wheezing Amitriptyline HCl (Elavil) 25 - 50 mg PO BEDTIME [facility] Last Admin: 08/13/17 21:27 Dose: 50 mg Aspirin (Halfprin) 81 mg PO DAILY [facility] Last Admin: 08/14/17 09:46 Dose: 81 mg Bisacodyl (Dulcolax) 5 mg PO DAILY PRN PRN Reason: Constipation Bumetanide (Bumex) 1 mg IVPUSH DAILY [facility] Carvedilol (Coreg) 12.5 mg PO BID [facility] Last Admin: 08/14/17 09:46 Dose: 12.5 mg Docusate Sodium (Colace) 100 mg PO BID PRN PRN Reason: Constipation Enoxaparin Sodium (Lovenox) 30 mg SUBCUT Q24H [facility] Last Admin: 08/13/17 18:00 Dose: Not Given Famotidine (Pepcid) 20 mg PO DAILY [facility] Last Admin: 08/14/17 09:45 Dose: 20 mg Hydralazine HCl (Apresoline) 10 mg PO Q6H PRN PRN Reason: Hypertension Clindamycin Phosphate 600 mg/ (Dextrose/Water) 104 mls @ 208 mls/hr IV Q8H [facility] Last Admin: 08/14/17 14:23 Dose: 208 mls/hr Metoprolol Tartrate (Lopressor) 5 mg IVPUSH Q4H PRN PRN Reason: Tachycardia Mometasone Furoate/Formoterol Fumar (Dulera 100-5 Mcg) 2 puff IH BID [facility] Last Admin: 08/14/17 09:00 Dose: Not Given Ondansetron HCl (Zofran Odt) 4 mg PO Q6H PRN PRN Reason: nausea, able to take PO Ondansetron HCl (Zofran) 4 mg IV Q6H PRN PRN Reason: Nausea/Vomiting Polyethylene Glycol (Miralax) 17 gm PO DAILY PRN PRN Reason: Constipation Polysaccharide Iron Complex (Ferrex 150) 150 mg PO DAILY [facility] Last Admin: 08/14/17 09:46 Dose: 150 mg Prednisone (Prednisone) 10 mg PO DAILY [facility] Last Admin: 08/14/17 09:46 Dose: 10 mg Saccharomyces Boulardii (Florastor) 250 mg PO BID [facility] Last Admin: 08/14/17 09:46 Dose: 250 mg Senna/Docusate Sodium (Senna Plus) 1 tab PO BID PRN PRN Reason: Constipation Sodium Chloride (Saline Flush) 10 ml FLUSH ASDIRECTED PRN PRN Reason: Keep Vein Open Last Admin: 08/13/17 10:27 Dose: 10 ml Temazepam (Restoril) 7.5 mg PO BEDTIME PRN PRN Reason: Sleep Discontinued Medications Bumetanide (Bumex) 1 mg IVPUSH ONETIME ONE Stop: 08/14/17 07:01 Last Admin: 08/14/17 06:50 Dose: 1 mg Enalapril Maleate (Vasotec) 5 mg PO DAILY [facility] Last Admin: 08/14/17 09:45 Dose: 5 mg Famotidine (Pepcid) 20 mg PO BID [facility] Last Admin: 08/13/17 21:27 Dose: 20 mg Furosemide (Lasix) 20 mg IVPUSH NOW ONE Stop: 08/13/17 16:15 Last Admin: 08/13/17 16:56 Dose: 20 mg Furosemide (Lasix) 40 mg PO DAILY [facility] Furosemide (Lasix) 40 mg IVPUSH NOW ONE Stop: 08/13/17 21:36 Last Admin: 08/14/17 00:04 Dose: Not Given Furosemide (Lasix) 40 mg IVPUSH DAILY ONE Stop: 08/14/17 07:01 Furosemide (Lasix) 40 mg PO DAILY [facility] Last Admin: 08/14/17 09:45 Dose: 40 mg Piperacillin Sod/Tazobactam (Sod 4.5 gm/ Sodium Chloride) 100 mls @ 200 mls/hr IV ONETIME ONE Stop: 08/13/17 13:20 Last Admin: 08/13/17 13:33 Dose: 200 mls/hr Sodium Chloride (Normal Saline) Confirm Administered Dose 100 mls @ as directed .ROUTE .STK-MED ONE Stop: 08/13/17 13:22 Last Admin: 08/13/17 13:34 Dose: Not Given Piperacillin Sod/Tazobactam (Sod 4.5 gm/ Sodium Chloride) 100 mls @ 25 mls/hr IV Q8H [facility] Last Admin: 08/14/17 05:18 Dose: 25 mls/hr Piperacillin Sod/Tazobactam (Sod 4.5 gm/ Dextrose/Water) 100 mls @ 25 mls/hr IV Q8H [facility] Influenza Virus Vaccine (Pharmacy To Dose - Influenza Vaccine) 1 each IM ONETIME ONE Stop: 08/14/17 09:01 Influenza Virus Vaccine (Fluzone High-Dose 2016-) 180 mcg IM .ONCE ONE Stop: 08/14/17 10:01 L.Acidoph,Paracasei, B.Lactis [Probiotic ] 1 Cap 1 cap PO DAILY [facility] Ursodiol 300mg Caps 300 mg PO DAILY [facility] Pneumococcal 13-Valent Conj Vacc (Prevnar 13) 0.5 ml IM .ONCE ONE Stop: 08/14/17 08:39 - Exam Quality Assessment: Supplemental Oxygen, DVT Prophylaxis General: Alert, Oriented, Cooperative, No Acute Distress HEENT: Pupils Equal, Pupils Reactive, EOMI Neck: Supple, Trachea Midline Lungs: Normal Respiratory Effort, Decreased Breath Sounds Cardiovascular: Regular Rate GI/Abdominal Exam: Normal Bowel Sounds, Soft, Non-Tender, No Organomegaly, No Distention (Female) Exam: Deferred Back Exam: Normal Inspection Extremities: Normal Inspection, Pedal Edema Skin: Warm, Dry, Intact Wound/Incisions: Healing Well Neurological: No New Focal Deficit, Normal Speech Psy/Mental Status: Alert, Normal Affect, Normal Mood - Problem List Review Problem List Initiated/Reviewed/Updated: Yes - Plan Plan:: I/P Acute: Cellulitis -Pain/erythema/weeping of right posterior lower leg for several days -Patient reports fever at home, temp 99.4 in ED -Bilateral pigmentation changes - suspect chronic venous stasis -Tachypneic and tachycardic in ED on arrival -Lactic acid 1.5 -WBC 9.61 -Zosyn 4.5g IV started in ED. Will continue Q8HR here -Would like to culture wound but it appears to have dried now - will monitor -Blood cultures x2 obtained in ED - will await results -Of note - she has had prior right TKA UTI -Reports increased frequency, denies dysuria -Hx/o recurrent UTIs -UA in ED positive -Zosyn s -Culture obtained - awaiting results Hemolytic anemia panel; Hgb dropped <8.0; will type and cross for 2 units; transfuse when available if Hgb<7.5 ordered. Start solumedrol, will hold home prednisone dose. Heart failure -Acute on chronic -Hx/o CHF -pro-BNP 3860 in ED; recheck >8000 when admitted to floor -On home lasix and Enalapril. -2+ pitting edema on floor -Will order 20 mg IVP of lasix now and monitor response -Low oxygen saturations - On 2L now, attempt to wean as baseline is no O2 - consider CHF vs. worsening COPD as cause -Low sodium/heart healthy diet -Last echo in our system from 10/2014 -LVEF 30-35% -Moderately decreased left ventricular systolic function -Elevated left atrial left ventricular end-diastolic pressure -Left ventricular internal cavity size is dilated in systole -Global hypokinesia with more severe hypokinesia in the mid and apical septum suggesting CAD. -Moderately dilated left atrium -Mild mitral valve regurgitation -Right ventricle systolic pressure is unable to be determined -Inferior vena caval normal sized with respiratory size variation greater than 50% -Attempt to locate more recent echo - consider new echo Chronic: CKD, Stage III -Appears to be at baseline -Caution when diuresing. -Continue home lasix and ACEI -Avoid nephrotoxic drugs if possible HTN - stable COPD esophageal strictures Recurrent UTIs Arthritis Anemia -Blood transfusion last thursday (6 days before admission), managed by Dr. Penny at [facility]. Plan: IV steroids Repeat Hgb, transfuse if needed Diurese after PRBCs as needed. Continue HF treatment; hold nephrotoxic meds CM/SW for discharge planning PT/OT GI prophylaxis - pepcid, will hold PPI DVT/PE prophylaxis - Avoid SCD and CINDY hose on right leg. Lovenox Home medicaitons as ordered Other orders as above Routine AM labs Code Status: DNR/DNI. Her PCP is Dr. Bernard at [facility] here in [place]; will discuss need for transfusion with family.
[2017-08-14] MEDS: Enoxaparin 30 MG/0.3 ML Syringe SUBCUT SCH (17:50)
[2017-08-14] MEDS: Amitriptyline 25 MG Tab PO SCH (22:23)
[2017-08-15] MEDS: Clindamycin Phosphate 600 MG in Dextrose 5% in Water 100 ML IV SCH ×6 (05:44→21:16)
[2017-08-15] MEDS: Iron Polysaccharides Complex 150 MG Cap PO SCH (08:39)
[2017-08-15] MEDS: Famotidine 20 MG Tab PO SCH (08:39)
[2017-08-15] MEDS: Bumetanide 1 MG/4 ML MDV IVPUSH SCH (08:39)
[2017-08-15] MEDS: Carvedilol 12.5 MG Tab PO SCH ×2 (08:39→21:22)
[2017-08-15] MEDS: Saccharomyces Boulardii (Probiotic) 250 MG Cap PO SCH ×2 (08:40→21:22)
[2017-08-15] MEDS: Aspirin 81 MG Tab.EC PO SCH (08:40)
[2017-08-15] MEDS ORDERED: methylPREDNISolone Sodium Succinate 40 MG/1 ML SDV IVPUSH SCH (09:00)
[2017-08-15] MEDS: Formoterol/Mometasone 100-5 MCG 8.8 GM Inhaler IH SCH ×2 (09:22→20:29)
[2017-08-15] MEDS ORDERED: diphenhydrAMINE 50 MG/ML SDV IVPUSH PRN (10:47)
--- NOTE | 2017-08-15 12:58 | PCM.PN ---
- General Info Date of Service: 08/15/17 Functional Status: Reports: Tolerating Diet, Other (overall, feels better) - Review of Systems General: Reports: Weakness, Fatigue HEENT: Reports: No Symptoms Pulmonary: Reports: Shortness of Breath Cardiovascular: Reports: Dyspnea on Exertion Gastrointestinal: Reports: No Symptoms Genitourinary: Reports: No Symptoms Musculoskeletal: Reports: No Symptoms Skin: Reports: No Symptoms Neurological: Reports: Weakness Psychiatric: Reports: No Symptoms - Patient Data Vitals - Most Recent: Last Vital Signs Temp 36.4 C 08/15/17 11:46 Pulse 67 08/15/17 11:46 Resp 17 08/15/17 11:46 BP 128/87 08/15/17 11:46 Pulse Ox 94 L 08/15/17 11:46 Weight - Most Recent: 56.245 kg I&O - Last 24 Hours: Intake & Output 08/14/17 08/15/17 08/15/17 22:59 06:59 14:59 Intake Total 840 200 Output Total 250 300 Balance 590 -100 Lab Results Last 24 Hours: Laboratory Results - last 24 hr 08/14/17 08/15/17 08/15/17 Range/Units 18:23 06:04 06:04 WBC 4.88 (3.98-10.04) K/mm3 RBC 2.22 L (3.98-5.22) M/mm3 Hgb 7.8 L (11.2-15.7) gm/L Hct 24.4 L (34.1-44.9) % MCV 109.9 H (79.4-94.8) fl MCH 35.1 H (25.6-32.2) pg MCHC 32.0 L (32.2-35.5) g/dl RDW Std Deviation 51.1 H (36.4-46.3) fL Plt Count 138 L (182-369) K/mm3 MPV 9.0 L (9.4-12.3) fl Neut % (Auto) 86.7 H (34.0-71.1) % Lymph % (Auto) 5.3 L (19.3-51.7) % [place] % (Auto) 7.0 (4.7-12.5) % Eos % (Auto) 0.8 (0.7-5.8) Baso % (Auto) 0.2 (0.1-1.2) % Neut # (Auto) 4.23 (1.56-6.13) K/mm3 Lymph # (Auto) 0.26 L (1.18-3.74) K/mm3 [place] # (Auto) 0.34 (0.24-0.36) K/mm3 Eos # (Auto) 0.04 (0.04-0.36) K/mm3 Baso # (Auto) 0.01 (0.01-0.08) K/mm3 Manual Slide Review Abnormal smear Sodium 141 (136-145) mEq/L Potassium 3.6 (3.5-5.1) mEq/L Chloride 106 (98-107) mEq/L Carbon Dioxide 28 (21-32) mEq/L Anion Gap 10.6 (5-15) BUN 41 H (7-18) mg/dL Creatinine 1.6 H (0.55-1.02) mg/dL Est Cr Clr Drug Dosing 20.99 mL/min Estimated GFR (MDRD) 30 (>60) mL/min BUN/Creatinine Ratio 25.6 H (14-18) Glucose 86 (83-115) mg/dL Calcium 8.0 L (8.5-10.1) mg/dL Magnesium 2.0 (1.8-2.4) mg/dl Total Bilirubin 1.0 (0.2-1.0) mg/dL Lactate Dehydrogenase 273 H (81-234) U/L C-Reactive Protein 11.5 H* (<1.0) mg/dL NT-Pro-B Natriuret Pep 3482 H (0-450) pg/mL Mycoplasma pneumon IgM Negative (NEGATIVE) Blood Type Gel Antibody Screen 08/15/17 Range/Units 06:04 WBC (3.98-10.04) K/mm3 RBC (3.98-5.22) M/mm3 Hgb (11.2-15.7) gm/L Hct (34.1-44.9) % MCV (79.4-94.8) fl MCH (25.6-32.2) pg MCHC (32.2-35.5) g/dl RDW Std Deviation (36.4-46.3) fL Plt Count (182-369) K/mm3 MPV (9.4-12.3) fl Neut % (Auto) (34.0-71.1) % Lymph % (Auto) (19.3-51.7) % [place] % (Auto) (4.7-12.5) % Eos % (Auto) (0.7-5.8) Baso % (Auto) (0.1-1.2) % Neut # (Auto) (1.56-6.13) K/mm3 Lymph # (Auto) (1.18-3.74) K/mm3 [place] # (Auto) (0.24-0.36) K/mm3 Eos # (Auto) (0.04-0.36) K/mm3 Baso # (Auto) (0.01-0.08) K/mm3 Manual Slide Review Sodium (136-145) mEq/L Potassium (3.5-5.1) mEq/L Chloride (98-107) mEq/L Carbon Dioxide (21-32) mEq/L Anion Gap (5-15) BUN (7-18) mg/dL Creatinine (0.55-1.02) mg/dL Est Cr Clr Drug Dosing mL/min Estimated GFR (MDRD) (>60) mL/min BUN/Creatinine Ratio (14-18) Glucose (83-115) mg/dL Calcium (8.5-10.1) mg/dL Magnesium (1.8-2.4) mg/dl Total Bilirubin (0.2-1.0) mg/dL Lactate Dehydrogenase (81-234) U/L C-Reactive Protein (<1.0) mg/dL NT-Pro-B Natriuret Pep (0-450) pg/mL Mycoplasma pneumon IgM (NEGATIVE) Blood Type A POSITIVE Gel Antibody Screen Positive Rogelio Results Last 24 Hours: Microbiology 08/14/17 17:41 Influenza Type A Antigen Screen - Final Nasal, Unspecified NEGATIVE INFLUENZA A VIRUS AG Influenza Type B Antigen Screen - Final NEGATIVE INFLUENZA B VIRUS AG Med Orders - Current: Current Medications Acetaminophen (Tylenol) 650 mg PO Q4H PRN PRN Reason: Pain (Mild 1-3)/fever Hydrocodone Bitart/Acetaminophen ([place] 325-5 Mg) 1 tab PO Q4H PRN PRN Reason: Pain (moderate 4-6) Last Admin: 08/14/17 01:25 Dose: 1 tab Albuterol/Ipratropium (Duoneb 3.0-0.5 Mg/3 Ml) 3 ml NEB Q4H PRN PRN Reason: Shortness Of Breath/wheezing Amitriptyline HCl (Elavil) 25 - 50 mg PO BEDTIME [facility] Last Admin: 08/14/17 22:23 Dose: 25 mg Aspirin (Halfprin) 81 mg PO DAILY [facility] Last Admin: 08/15/17 08:40 Dose: 81 mg Bisacodyl (Dulcolax) 5 mg PO DAILY PRN PRN Reason: Constipation Bumetanide (Bumex) 1 mg IVPUSH DAILY [facility] Last Admin: 08/15/17 08:39 Dose: 1 mg Carvedilol (Coreg) 12.5 mg PO BID [facility] Last Admin: 08/15/17 08:39 Dose: 12.5 mg Diphenhydramine HCl (Benadryl) 25 mg IVPUSH ONETIME PRN PRN Reason: Itching Docusate Sodium (Colace) 100 mg PO BID PRN PRN Reason: Constipation Enoxaparin Sodium (Lovenox) 30 mg SUBCUT Q24H [facility] Last Admin: 08/14/17 17:50 Dose: 30 mg Famotidine (Pepcid) 20 mg PO DAILY [facility] Last Admin: 08/15/17 08:39 Dose: 20 mg Folic Acid (Folic Acid) 1 mg PO DAILY [facility] Hydralazine HCl (Apresoline) 10 mg PO Q6H PRN PRN Reason: Hypertension Clindamycin Phosphate 600 mg/ (Dextrose/Water) 104 mls @ 208 mls/hr IV Q8H [facility] Last Admin: 08/15/17 05:44 Dose: 208 mls/hr Methylprednisolone Sodium Succinate (Solu-Medrol) 125 mg IVPUSH Q8H [facility] Metoprolol Tartrate (Lopressor) 5 mg IVPUSH Q4H PRN PRN Reason: Tachycardia Mometasone Furoate/Formoterol Fumar (Dulera 100-5 Mcg) 2 puff IH BID [facility] Last Admin: 08/15/17 09:22 Dose: 2 puff Ondansetron HCl (Zofran Odt) 4 mg PO Q6H PRN PRN Reason: nausea, able to take PO Ondansetron HCl (Zofran) 4 mg IV Q6H PRN PRN Reason: Nausea/Vomiting Polyethylene Glycol (Miralax) 17 gm PO DAILY PRN PRN Reason: Constipation Polysaccharide Iron Complex (Ferrex 150) 150 mg PO DAILY [facility] Last Admin: 08/15/17 08:39 Dose: 150 mg Saccharomyces Boulardii (Florastor) 250 mg PO BID [facility] Last Admin: 08/15/17 08:40 Dose: 250 mg Senna/Docusate Sodium (Senna Plus) 1 tab PO BID PRN PRN Reason: Constipation Sodium Chloride (Saline Flush) 10 ml FLUSH ASDIRECTED PRN PRN Reason: Keep Vein Open Last Admin: 08/13/17 10:27 Dose: 10 ml Temazepam (Restoril) 7.5 mg PO BEDTIME PRN PRN Reason: Sleep Vit A/Vit C/Vit E/Selen/Cu/Zn/Lutei (Icaps Mv) 1 tab PO DAILY [facility] Discontinued Medications Bumetanide (Bumex) 1 mg IVPUSH ONETIME ONE Stop: 08/14/17 07:01 Last Admin: 08/14/17 06:50 Dose: 1 mg Enalapril Maleate (Vasotec) 5 mg PO DAILY [facility] Last Admin: 08/14/17 09:45 Dose: 5 mg Famotidine (Pepcid) 20 mg PO BID [facility] Last Admin: 08/13/17 21:27 Dose: 20 mg Furosemide (Lasix) 20 mg IVPUSH NOW ONE Stop: 08/13/17 16:15 Last Admin: 08/13/17 16:56 Dose: 20 mg Furosemide (Lasix) 40 mg PO DAILY [facility] Furosemide (Lasix) 40 mg IVPUSH NOW ONE Stop: 08/13/17 21:36 Last Admin: 08/14/17 00:04 Dose: Not Given Furosemide (Lasix) 40 mg IVPUSH DAILY ONE Stop: 08/14/17 07:01 Furosemide (Lasix) 40 mg PO DAILY [facility] Last Admin: 08/14/17 09:45 Dose: 40 mg Piperacillin Sod/Tazobactam (Sod 4.5 gm/ Sodium Chloride) 100 mls @ 200 mls/hr IV ONETIME ONE Stop: 08/13/17 13:20 Last Admin: 08/13/17 13:33 Dose: 200 mls/hr Sodium Chloride (Normal Saline) Confirm Administered Dose 100 mls @ as directed .ROUTE .STK-MED ONE Stop: 08/13/17 13:22 Last Admin: 08/13/17 13:34 Dose: Not Given Piperacillin Sod/Tazobactam (Sod 4.5 gm/ Sodium Chloride) 100 mls @ 25 mls/hr IV Q8H [facility] Last Admin: 08/14/17 05:18 Dose: 25 mls/hr Piperacillin Sod/Tazobactam (Sod 4.5 gm/ Dextrose/Water) 100 mls @ 25 mls/hr IV Q8H [facility] Influenza Virus Vaccine (Pharmacy To Dose - Influenza Vaccine) 1 each IM ONETIME ONE Stop: 08/14/17 09:01 Influenza Virus Vaccine (Fluzone High-Dose 2016-) 180 mcg IM .ONCE ONE Stop: 08/14/17 10:01 Methylprednisolone Sodium Succinate (Solu-Medrol) 40 mg IVPUSH DAILY [facility] Last Admin: 08/15/17 08:40 Dose: 40 mg L.Acidoph,Paracasei, B.Lactis [Probiotic ] 1 Cap 1 cap PO DAILY [facility] Ursodiol 300mg Caps 300 mg PO DAILY [facility] Pneumococcal 13-Valent Conj Vacc (Prevnar 13) 0.5 ml IM .ONCE ONE Stop: 08/14/17 08:39 Prednisone (Prednisone) 10 mg PO DAILY [facility] Last Admin: 08/14/17 09:46 Dose: 10 mg - Exam Quality Assessment: Supplemental Oxygen, DVT Prophylaxis General: Alert, Oriented, Cooperative, No Acute Distress HEENT: Pupils Equal, Pupils Reactive, EOMI Neck: Supple, Trachea Midline Lungs: Normal Respiratory Effort, Decreased Breath Sounds Cardiovascular: Regular Rate GI/Abdominal Exam: Normal Bowel Sounds, Soft, Non-Tender, No Organomegaly, No Distention (Female) Exam: Deferred Back Exam: Normal Inspection Extremities: Normal Inspection, Pedal Edema (improved, 1+), Other (no weeping or exuidate) Skin: Warm Wound/Incisions: Healing Well, No Drainage Neurological: No New Focal Deficit, Normal Speech Psy/Mental Status: Alert, Normal Affect, Normal Mood - Problem List Review Problem List Initiated/Reviewed/Updated: Yes - My Orders Last 24 Hours: My Active Orders 08/14/17 17:40 STREP PNEUMONIAE ANTIGEN [MREF] Routine 08/14/17 18:23 HAPTOGLOBIN [REF] Routine 08/15/17 06:04 ANTIBODY IDENTIFICATION [BBK] Routine TYPE AND SCREEN [BBK] Routine 08/15/17 10:44 Transfuse PRBC [Transfuse Red Blood Cells] [COMM] Routine 08/15/17 10:47 diphenhydrAMINE [Benadryl] 25 mg IVPUSH ONETIME PRN 08/15/17 12:42 OCCULT BLOOD SCREEN [OP] Routine 08/15/17 13:00 HEMOGLOBIN/HEMATOCRIT,HH [HEME] Routine methylPREDNISolone Sod Succ [Solu-MEDROL] 125 mg IVPUSH Q8H 08/16/17 09:00 Folic Acid 1 mg PO DAILY Multivitamins/Min/FA/Lut/Zeax [ICaps MV] 1 tab PO DAILY - Plan Plan:: I/P Acute: Cellulitis -Pain/erythema/weeping of right posterior lower leg for several days -Patient reports fever at home, temp 99.4 in ED -Bilateral pigmentation changes - suspect chronic venous stasis -Tachypneic and tachycardic in ED on arrival -Lactic acid 1.5 -WBC 9.61 -Zosyn 4.5g IV started in ED. Will continue Q8HR here -Would like to culture wound but it appears to have dried now - will monitor -Blood cultures x2 obtained in ED - will await results -Of note - she has had prior right TKA UTI -Reports increased frequency, denies dysuria -Hx/o recurrent UTIs -UA in ED positive -Zosyn -Culture obtained - awaiting results Hemolytic anemia panel; Hgb dropped <8.0; will type and cross for 2 units; transfuse when available if Hgb<7.5 ordered. Start solumedrol, will hold home prednisone dose. Heart failure -Acute on chronic -Hx/o CHF -pro-BNP 3860 in ED; recheck >8000 when admitted to floor -On home lasix and Enalapril. -2+ pitting edema on floor -Will order 20 mg IVP of lasix now and monitor response -Low oxygen saturations - On 2L now, attempt to wean as baseline is no O2 - consider CHF vs. worsening COPD as cause -Low sodium/heart healthy diet -Last echo in our system from 10/2014 -LVEF 30-35% -Moderately decreased left ventricular systolic function -Elevated left atrial left ventricular end-diastolic pressure -Left ventricular internal cavity size is dilated in systole -Global hypokinesia with more severe hypokinesia in the mid and apical septum suggesting CAD. -Moderately dilated left atrium -Mild mitral valve regurgitation -Right ventricle systolic pressure is unable to be determined -Inferior vena caval normal sized with respiratory size variation greater than 50% -Attempt to locate more recent echo - consider new echo ID--->Negative BC/UC after 48 hours Chronic: CKD, Stage III -Appears to be at baseline -Caution when diuresing. -Continue home lasix and ACEI-stopped; receiving Bumex -Avoid nephrotoxic drugs if possible HTN - stable COPD esophageal strictures Recurrent UTIs Arthritis Anemia -Blood transfusion last Thursday (6 days before admission), managed by Dr. Penny at [facility]. Plan: IV steroids' increase dose. MVI/Folic acid Repeat Hgb, transfuse if needed Diurese after PRBCs as needed. Continue HF treatment; hold nephrotoxic meds CM/SW for discharge planning PT/OT GI prophylaxis - pepcid, will hold PPI DVT/PE prophylaxis - Avoid SCD and CINDY hose on right leg. Lovenox Home medicaitons as ordered Other orders as above Routine AM labs Code Status: DNR/DNI. Her PCP is Dr. Bernard at [facility] here in [place]; will discuss need for transfusion with family.
[2017-08-15] MEDS: methylPREDNISolone Sodium Succinate 125 MG/2 ML SDV IVPUSH SCH ×2 (13:10→21:22)
[2017-08-15] MEDS: Amitriptyline 25 MG Tab PO SCH (21:23)
[2017-08-16] MEDS: methylPREDNISolone Sodium Succinate 125 MG/2 ML SDV IVPUSH SCH ×3 (05:05→21:46)
[2017-08-16] MEDS: Clindamycin Phosphate 600 MG in Dextrose 5% in Water 100 ML IV SCH ×2 (05:05)
[2017-08-16] MEDS: Bumetanide 1 MG/4 ML MDV IVPUSH SCH (09:56)
[2017-08-16] MEDS: Folic Acid 1 MG Tab PO SCH (09:56)
[2017-08-16] MEDS: Multivitamins with Minerals/Folic Acid/Lutein/Zeaxanth Tab PO SCH (09:56)
[2017-08-16] MEDS: Saccharomyces Boulardii (Probiotic) 250 MG Cap PO SCH ×2 (09:56→21:45)
[2017-08-16] MEDS: Famotidine 20 MG Tab PO SCH (09:57)
[2017-08-16] MEDS: Aspirin 81 MG Tab.EC PO SCH (09:57)
[2017-08-16] MEDS: Carvedilol 12.5 MG Tab PO SCH ×2 (09:57→21:47)
[2017-08-16] MEDS: Iron Polysaccharides Complex 150 MG Cap PO SCH (09:59)
[2017-08-16] MEDS: Formoterol/Mometasone 100-5 MCG 8.8 GM Inhaler IH SCH ×2 (10:01→20:20)
--- NOTE | 2017-08-16 12:12 | PCM.PN ---
- General Info Date of Service: 08/16/17 Functional Status: Reports: Tolerating Diet - Review of Systems General: Reports: Weakness HEENT: Reports: No Symptoms Pulmonary: Reports: Shortness of Breath Cardiovascular: Reports: No Symptoms Gastrointestinal: Reports: No Symptoms Genitourinary: Reports: No Symptoms Musculoskeletal: Reports: No Symptoms Skin: Reports: No Symptoms Neurological: Reports: No Symptoms Psychiatric: Reports: No Symptoms - Patient Data Vitals - Most Recent: Last Vital Signs Temp 36.3 C 08/16/17 11:17 Pulse 73 08/16/17 11:17 Resp 14 08/16/17 11:17 BP 168/91 H 08/16/17 11: Pulse Ox 96 08/16/17 11:17 Weight - Most Recent: 55.973 kg I&O - Last 24 Hours: Intake & Output 08/15/17 08/16/17 08/16/17 23:59 06:59 14:59 Intake Total Balance Lab Results Last 24 Hours: Laboratory Results - last 24 hr 08/15/17 08/15/17 08/16/17 Range/Units 13:01 18:00 06:23 WBC 4.33 (3.98-10.04) K/mm3 RBC 2.44 L (3.98-5.22) M/mm3 Hgb 9.1 L 9.4 L 8.6 L (11.2-15.7) gm/L Hct 28.3 L 29.5 L 26.4 L (34.1-44.9) % MCV 108.2 H (79.4-94.8) fl MCH 35.2 H (25.6-32.2) pg MCHC 32.6 (32.2-35.5) g/dl RDW Std Deviation 51.0 H (36.4-46.3) fL Plt Count 169 L (182-369) K/mm3 MPV 9.1 L (9.4-12.3) fl Neut % (Auto) 94.9 H (34.0-71.1) % Lymph % (Auto) 2.1 L (19.3-51.7) % [place] % (Auto) 3.0 L (4.7-12.5) % Eos % (Auto) 0 L (0.7-5.8) Baso % (Auto) 0.0 L (0.1-1.2) % Neut # (Auto) 4.11 (1.56-6.13) K/mm3 Lymph # (Auto) 0.09 L (1.18-3.74) K/mm3 [place] # (Auto) 0.13 L (0.24-0.36) K/mm3 Eos # (Auto) 0.00 L (0.04-0.36) K/mm3 Baso # (Auto) 0.00 L (0.01-0.08) K/mm3 Manual Slide Review Abnormal smear Sodium (136-145) mEq/L Potassium (3.5-5.1) mEq/L Chloride (98-107) mEq/L Carbon Dioxide (21-32) mEq/L Anion Gap (5-15) BUN (7-18) mg/dL Creatinine (0.55-1.02) mg/dL Est Cr Clr Drug Dosing mL/min Estimated GFR (MDRD) (>60) mL/min BUN/Creatinine Ratio (14-18) Glucose (83-115) mg/dL Calcium (8.5-10.1) mg/dL Magnesium (1.8-2.4) mg/dl C-Reactive Protein (<1.0) mg/dL NT-Pro-B Natriuret Pep (0-450) pg/mL 08/16/17 Range/Units 06:23 WBC (3.98-10.04) K/mm3 RBC (3.98-5.22) M/mm3 Hgb (11.2-15.7) gm/L Hct (34.1-44.9) % MCV (79.4-94.8) fl MCH (25.6-32.2) pg MCHC (32.2-35.5) g/dl RDW Std Deviation (36.4-46.3) fL Plt Count (182-369) K/mm3 MPV (9.4-12.3) fl Neut % (Auto) (34.0-71.1) % Lymph % (Auto) (19.3-51.7) % [place] % (Auto) (4.7-12.5) % Eos % (Auto) (0.7-5.8) Baso % (Auto) (0.1-1.2) % Neut # (Auto) (1.56-6.13) K/mm3 Lymph # (Auto) (1.18-3.74) K/mm3 [place] # (Auto) (0.24-0.36) K/mm3 Eos # (Auto) (0.04-0.36) K/mm3 Baso # (Auto) (0.01-0.08) K/mm3 Manual Slide Review Sodium 140 (136-145) mEq/L Potassium 3.7 (3.5-5.1) mEq/L Chloride 104 (98-107) mEq/L Carbon Dioxide 25 (21-32) mEq/L Anion Gap 14.7 (5-15) BUN 43 H (7-18) mg/dL Creatinine 1.7 H (0.55-1.02) mg/dL Est Cr Clr Drug Dosing 19.75 mL/min Estimated GFR (MDRD) 28 (>60) mL/min BUN/Creatinine Ratio 25.3 H (14-18) Glucose 154 H (83-115) mg/dL Calcium 7.9 L (8.5-10.1) mg/dL Magnesium 2.0 (1.8-2.4) mg/dl C-Reactive Protein 5.1 H* (<1.0) mg/dL NT-Pro-B Natriuret Pep 4648 H (0-450) pg/mL Med Orders - Current: Current Medications Acetaminophen (Tylenol) 650 mg PO Q4H PRN PRN Reason: Pain (Mild 1-3)/fever Hydrocodone Bitart/Acetaminophen ([place] 325-5 Mg) 1 tab PO Q4H PRN PRN Reason: Pain (moderate 4-6) Last Admin: 08/14/17 01:25 Dose: 1 tab Albuterol/Ipratropium (Duoneb 3.0-0.5 Mg/3 Ml) 3 ml NEB Q4H PRN PRN Reason: Shortness Of Breath/wheezing Amitriptyline HCl (Elavil) 25 - 50 mg PO BEDTIME [facility] Last Admin: 08/15/17 21:23 Dose: 25 mg Aspirin (Halfprin) 81 mg PO DAILY [facility] Last Admin: 08/16/17 09:57 Dose: 81 mg Bisacodyl (Dulcolax) 5 mg PO DAILY PRN PRN Reason: Constipation Bumetanide (Bumex) 1 mg IVPUSH DAILY [facility] Last Admin: 08/16/17 09:56 Dose: 1 mg Carvedilol (Coreg) 12.5 mg PO BID [facility] Last Admin: 08/16/17 09:57 Dose: 12.5 mg Diphenhydramine HCl (Benadryl) 25 mg IVPUSH ONETIME PRN PRN Reason: Itching Docusate Sodium (Colace) 100 mg PO BID PRN PRN Reason: Constipation Famotidine (Pepcid) 20 mg PO DAILY [facility] Last Admin: 08/16/17 09:57 Dose: 20 mg Folic Acid (Folic Acid) 1 mg PO DAILY [facility] Last Admin: 08/16/17 09:56 Dose: 1 mg Hydralazine HCl (Apresoline) 10 mg PO Q6H PRN PRN Reason: Hypertension Methylprednisolone Sodium Succinate (Solu-Medrol) 125 mg IVPUSH Q8H [facility] Last Admin: 08/16/17 05:05 Dose: 125 mg Metoprolol Tartrate (Lopressor) 5 mg IVPUSH Q4H PRN PRN Reason: Tachycardia Mometasone Furoate/Formoterol Fumar (Dulera 100-5 Mcg) 2 puff IH BID [facility] Last Admin: 08/16/17 10:01 Dose: 2 puff Ondansetron HCl (Zofran Odt) 4 mg PO Q6H PRN PRN Reason: nausea, able to take PO Ondansetron HCl (Zofran) 4 mg IV Q6H PRN PRN Reason: Nausea/Vomiting Polyethylene Glycol (Miralax) 17 gm PO DAILY PRN PRN Reason: Constipation Polysaccharide Iron Complex (Ferrex 150) 150 mg PO DAILY [facility] Last Admin: 08/16/17 09:59 Dose: 150 mg Saccharomyces Boulardii (Florastor) 250 mg PO BID [facility] Last Admin: 08/16/17 09:56 Dose: 250 mg Senna/Docusate Sodium (Senna Plus) 1 tab PO BID PRN PRN Reason: Constipation Sodium Chloride (Saline Flush) 10 ml FLUSH ASDIRECTED PRN PRN Reason: Keep Vein Open Last Admin: 08/13/17 10:27 Dose: 10 ml Temazepam (Restoril) 7.5 mg PO BEDTIME PRN PRN Reason: Sleep Vit A/Vit C/Vit E/Selen/Cu/Zn/Lutei (Icaps Mv) 1 tab PO DAILY [facility] Last Admin: 08/16/17 09:56 Dose: 1 tab Discontinued Medications Bumetanide (Bumex) 1 mg IVPUSH ONETIME ONE Stop: 08/14/17 07:01 Last Admin: 08/14/17 06:50 Dose: 1 mg Enalapril Maleate (Vasotec) 5 mg PO DAILY [facility] Last Admin: 08/14/17 09:45 Dose: 5 mg Enoxaparin Sodium (Lovenox) 30 mg SUBCUT Q24H [facility] Last Admin: 08/14/17 17:50 Dose: 30 mg Famotidine (Pepcid) 20 mg PO BID [facility] Last Admin: 08/13/17 21:27 Dose: 20 mg Furosemide (Lasix) 20 mg IVPUSH NOW ONE Stop: 08/13/17 16:15 Last Admin: 08/13/17 16:56 Dose: 20 mg Furosemide (Lasix) 40 mg PO DAILY [facility] Furosemide (Lasix) 40 mg IVPUSH NOW ONE Stop: 08/13/17 21:36 Last Admin: 08/14/17 00:04 Dose: Not Given Furosemide (Lasix) 40 mg IVPUSH DAILY ONE Stop: 08/14/17 07:01 Furosemide (Lasix) 40 mg PO DAILY [facility] Last Admin: 08/14/17 09:45 Dose: 40 mg Piperacillin Sod/Tazobactam (Sod 4.5 gm/ Sodium Chloride) 100 mls @ 200 mls/hr IV ONETIME ONE Stop: 08/13/17 13:20 Last Admin: 08/13/17 13:33 Dose: 200 mls/hr Sodium Chloride (Normal Saline) Confirm Administered Dose 100 mls @ as directed .ROUTE .STK-MED ONE Stop: 08/13/17 13:22 Last Admin: 08/13/17 13:34 Dose: Not Given Piperacillin Sod/Tazobactam (Sod 4.5 gm/ Sodium Chloride) 100 mls @ 25 mls/hr IV Q8H [facility] Last Admin: 08/14/17 05:18 Dose: 25 mls/hr Piperacillin Sod/Tazobactam (Sod 4.5 gm/ Dextrose/Water) 100 mls @ 25 mls/hr IV Q8H [facility] Clindamycin Phosphate 600 mg/ (Dextrose/Water) 104 mls @ 208 mls/hr IV Q8H [facility] Last Admin: 08/16/17 05:05 Dose: 208 mls/hr Influenza Virus Vaccine (Pharmacy To Dose - Influenza Vaccine) 1 each IM ONETIME ONE Stop: 08/14/17 09:01 Influenza Virus Vaccine (Fluzone High-Dose 2016-) 180 mcg IM .ONCE ONE Stop: 08/14/17 10:01 Methylprednisolone Sodium Succinate (Solu-Medrol) 40 mg IVPUSH DAILY [facility] Last Admin: 08/15/17 08:40 Dose: 40 mg L.Acidoph,Paracasei, B.Lactis [Probiotic ] 1 Cap 1 cap PO DAILY [facility] Ursodiol 300mg Caps 300 mg PO DAILY [facility] Pneumococcal 13-Valent Conj Vacc (Prevnar 13) 0.5 ml IM .ONCE ONE Stop: 08/14/17 08:39 Prednisone (Prednisone) 10 mg PO DAILY [facility] Last Admin: 08/14/17 09:46 Dose: 10 mg - Exam Quality Assessment: Supplemental Oxygen, DVT Prophylaxis General: Alert, Oriented, Cooperative, No Acute Distress HEENT: Pupils Equal, Pupils Reactive, EOMI Neck: Supple, Trachea Midline Lungs: Normal Respiratory Effort, Decreased Breath Sounds Cardiovascular: Regular Rate GI/Abdominal Exam: Normal Bowel Sounds, Soft, Non-Tender, No Organomegaly, No Distention (Female) Exam: Deferred Back Exam: Normal Inspection Extremities: Normal Inspection, Normal Capillary Refill Skin: Warm Neurological: No New Focal Deficit Psy/Mental Status: Alert, Normal Affect, Normal Mood - Problem List Review Problem List Initiated/Reviewed/Updated: Yes - My Orders Last 24 Hours: My Active Orders 08/15/17 13:00 methylPREDNISolone Sod Succ [Solu-MEDROL] 125 mg IVPUSH Q8H 08/15/17 18:05 REY Bandage [Elastic Wrap] [OM.PC] Routine 08/15/17 21:36 OCCULT BLOOD SCREEN [OP] Routine 08/16/17 09:00 Folic Acid 1 mg PO DAILY Multivitamins/Min/FA/Lut/Zeax [ICaps MV] 1 tab PO DAILY 08/16/17 18:00 HEMOGLOBIN/HEMATOCRIT,HH [HEME] Routine - Plan Plan:: I/P Acute: Cellulitis -Pain/erythema/weeping of right posterior lower leg for several days -Patient reports fever at home, temp 99.4 in ED -Bilateral pigmentation changes - suspect chronic venous stasis -Tachypneic and tachycardic in ED on arrival -Lactic acid 1.5 -WBC 9.61 -Zosyn 4.5g IV started in ED. Will continue Q8HR here -Would like to culture wound but it appears to have dried now - will monitor -Blood cultures x2 obtained in ED - will await results -Of note - she has had prior right TKA UTI -Reports increased frequency, denies dysuria -Hx/o recurrent UTIs -UA in ED positive -Zosyn -Culture obtained - awaiting results Hemolytic anemia panel; Hgb dropped <8.0; will type and cross for 2 units; transfuse when available if Hgb<7.5 ordered. Start solumedrol, will hold home prednisone dose. Heart failure -Acute on chronic -Hx/o CHF -pro-BNP 3860 in ED; recheck >8000 when admitted to floor -On home lasix and Enalapril. -2+ pitting edema on floor -Will order 20 mg IVP of lasix now and monitor response -Low oxygen saturations - On 2L now, attempt to wean as baseline is no O2 - consider CHF vs. worsening COPD as cause -Low sodium/heart healthy diet -Last echo in our system from 10/2014 -LVEF 30-35% -Moderately decreased left ventricular systolic function -Elevated left atrial left ventricular end-diastolic pressure -Left ventricular internal cavity size is dilated in systole -Global hypokinesia with more severe hypokinesia in the mid and apical septum suggesting CAD. -Moderately dilated left atrium -Mild mitral valve regurgitation -Right ventricle systolic pressure is unable to be determined -Inferior vena caval normal sized with respiratory size variation greater than 50% ID--->Negative BC/UC after 48 hours Chronic: CKD, Stage III -Appears to be at baseline -Caution when diuresing. -Continue home lasix and ACEI-stopped; receiving Bumex -Avoid nephrotoxic drugs if possible HTN - stable COPD esophageal strictures Recurrent UTIs Arthritis Anemia -Blood transfusion last Thursday (6 days before admission), managed by Dr. Penny at [facility]. Plan: IV steroids increase dose. MVI/Folic acid Repeat Hgb, transfuse if needed Diurese after PRBCs as needed. Continue HF treatment; hold nephrotoxic meds CM/SW for discharge planning PT/OT GI prophylaxis - pepcid, will hold PPI DVT/PE prophylaxis - Avoid SCD and CINDY hose on right leg. Lovenox Home medicaitons as ordered Other orders as above Routine AM labs Code Status: DNR/DNI. Her PCP is Dr. Bernard at [facility] here in [place]; will discuss need for transfusion with family. LOS>96 hours with slow response; anticipate DC 08/18/17..
[2017-08-16] MEDS: Amitriptyline 25 MG Tab PO SCH (21:45)
[2017-08-17] MEDS: methylPREDNISolone Sodium Succinate 125 MG/2 ML SDV IVPUSH SCH ×2 (05:02→13:04)
[2017-08-17] MEDS: Formoterol/Mometasone 100-5 MCG 8.8 GM Inhaler IH SCH (08:41)
[2017-08-17] MEDS: Carvedilol 12.5 MG Tab PO SCH (08:46)
[2017-08-17] MEDS: Bumetanide 1 MG/4 ML MDV IVPUSH SCH (08:46)
[2017-08-17] MEDS: Aspirin 81 MG Tab.EC PO SCH (08:47)
[2017-08-17] MEDS: Multivitamins with Minerals/Folic Acid/Lutein/Zeaxanth Tab PO SCH (08:47)
[2017-08-17] MEDS: Saccharomyces Boulardii (Probiotic) 250 MG Cap PO SCH (08:47)
[2017-08-17] MEDS: Iron Polysaccharides Complex 150 MG Cap PO SCH (08:47)
[2017-08-17] MEDS: Folic Acid 1 MG Tab PO SCH (08:47)
[2017-08-17] MEDS: Famotidine 20 MG Tab PO SCH (08:47)
--- NOTE | 2017-08-17 12:03 | PCM.DCSUM1 ---
Discharge Summary - Hospital Course Free Text/Narrative:: Jill Shankar is an 87 yo female who presented to our ED today (08/13/17) via ambulance with a fever, weakness, and shortness of breath. Fever and chills are poorly started last night with a temperature of 101. She's been feeling poor for the last couple of months with a diagnosis of "hemolytic anemia. She received transfusion last Thursday, 6 days ago she is a history of chronic heart failure. She reports increased right leg discomfort with redness and mild weeping posteriorly. This has been going on for 2 days. She reports very easy bruising. She has a chronic cough but has not been coughing more than usual, denies nasal or sinus congestion. She denies sore throat. Denies dysuria but does report increased voiding frequency. No nausea or vomiting. No current abdominal discomfort. Upon presentation to the ED and picture was 99.4. pulse was tachycardic at 103. Respirations were At 32. Blood pressure was elevated at 156/66. Pulse ox is low at 94. Twelve-lead EKG was obtained and interpreted by ED provider as normal sinus rhythm. Labs are obtained: White blood cell was normal at 9.61. Hemoglobin low at 9. Hematocrit low at 20.3. She was macrocytic. Platelets are low at 131,000. Neutrophils elevated at 91. Sodium normal at 144. Potassium normal at 3.9. Chloride high at 108. Carbon dioxide normal at 28. Anion gap normal at 11.9. BUN elevated at 39. Creatinine elevated at 1.4. EGFR 35. Glucose normal at 98. Lactic acid was 1.5. Calcium low at 7.8. Bilirubin normal at 0.8. Liver enzymes were normal with AST at 21, ALT at 16, alkaline phosphatase at 54. CRP was elevated at 8.1. ProBNP elevated at 3860. Albumin was low at 1.9. She does appear to have a UTI as well. Zosyn was started in the ED. Blood cultures 2 were obtained. She carries a history of heart failure, hypertension, COPD, esophageal strictures, current UTIs, arthritis, anemia, melanoma. Of note she has had a prior right knee replacement. She is a former smoker. She was subsequently admitted to a medical floor with telemetry for cellulitis to lower extremity, anemia as above, hemolytic, mild CHF exacerbation. Her primary care provider is Dr. Bernard at [facility] in [place]. CODE STATUS is DNR/DNI. She was treated with IV Zosyn for cellulitis and r/o UTI with cultures that returned negative, blood cultures negative, flu screen and mycoplasma screening also negative. Cellulitis resolved but she continued to have swelling/edema, treated with increased diuretic and ana wraps per PT. She will be discharged home on will hose. Hgb fluctuated from 9.4 to 8.1 during her stay. Occult stool was negative x 3 during her stay. She worked with PT/OT for strengthening and will continue with PT after discharge for strength and balance. She is to follow up with Dr. Rivera, her Oncologist/Email Specialist with in 7-10 days of discharge , Dr. Bernard her PCP within one week of discharge. - Discharge Data Discharge Date: 08/17/17 Discharge Disposition: Home, Self-Care 01 Condition: Good - Patient Summary/Data Operative Procedure(s) Performed: None Complications: None Consults: PT/OT Labs Pending at D/C: None Recommended Follow-up Testing/Procedures: Weight yourself daily & keep record for your provider; Will hose to lower extremities, on during day off at bedtime. Echocardiogram or ultrasound of your heart was good with normal squeezing, muscle function of your heart. This is good news. Continue with Physical Therapy for strengthening and balance after discharge. Follow up with Dr. Rivera, Oncologist after discharge, within 7-10 days. Follow up with PCP, Dr. Bernard within one week of discharge for recheck. Planned Operative Procedure(s) after DC: None Hospital Course: As above - Patient Instructions Diet: Usual Diet as Tolerated Activity: As Tolerated Driving: Do Not Drive Showering/Bathing: May Shower Notify Provider of: Fever, Increased Pain, Swelling and Redness, Nausea and/or Vomiting - Discharge Plan Prescriptions/Med Rec: Famotidine [Pepcid] 20 mg PO DAILY #30 tablet Folic Acid 1 mg PO DAILY #30 tablet Prednisone [IJD: Prednisone] 10 mg PO DAILY #30 tab Home Medications: Home Meds Allopurinol [Zyloprim] 100 mg PO DAILY 10/11/14 [History] Amitriptyline [Elavil] 50 mg PO BEDTIME 10/11/14 [History] Fluticasone/Salmeterol [Advair 100-50] 1 puff INH DAILY 10/11/14 [History] Furosemide [Lasix] 40 mg PO DAILY 10/11/14 [History] Omeprazole 20 mg PO BIDAC 10/11/14 [History] Enalapril [Vasotec] 5 mg PO DAILY 07/05/15 [History] Carvedilol 12.5 mg PO BID 06/18/17 [History] Iron Polysaccharides Complex [Ferrex 150] 1 cap PO DAILY 06/18/17 [History] Ursodiol 300 mg PO DAILY 06/18/17 [History] Aspirin [Adult Low Dose Aspirin EC] 81 mg PO DAILY 08/13/17 [History] Hydrocodone/Acetaminophen [Hydrocodon-Acetaminophen 5-325] 1 tab PO TID PRN 11/28 [History] L.acidoph,Paracasei, B.lactis [Probiotic] 1 cap PO DAILY 08/13/17 [History] Prednisone [IJD: Prednisone] 10 mg PO DAILY 08/13/17 [History] Vit A/Vit C/Vit E/Zinc/Copper [Icaps Areds Formula] 2 tab PO DAILY 08/13/17 [ History] Famotidine [Pepcid] 20 mg PO DAILY #30 tablet 08/17/17 [Rx] Folic Acid 1 mg PO DAILY #30 tablet 08/17/17 [Rx] Prednisone [IJD: Prednisone] 10 mg PO DAILY #30 tab 08/17/17 [Rx] Patient Handouts: Hemolytic Anemia, Cellulitis, Adult, [id number], Heart Failure, [id number] Referrals: Senthil Bernard Jr, MD [Primary Care Provider] - - Discharge Summary/Plan Comment DC Time >30 min.: Yes (40 min) - General Info Date of Service: 08/17/17 Admission Dx/Problem (Free Text: Admission Diagnosis/Problem Admission Diagnosis/Problem Cellulitis of right lower extremity Jill is seen this morning. Feeling good/better. She is working with OT. No concerns, afebrile. Plans for DC home with family today. Functional Status: Reports: Pain Controlled, Tolerating Diet, Ambulating, Urinating. Denies: New Symptoms - Review of Systems General: Reports: Weakness, Fatigue HEENT: Reports: No Symptoms Pulmonary: Reports: No Symptoms Cardiovascular: Reports: No Symptoms Gastrointestinal: Reports: No Symptoms Genitourinary: Reports: No Symptoms Neurological: Reports: No Symptoms - Patient Data Vitals - Most Recent: Last Vital Signs Temp 98.8 F 08/17/17 11:33 Pulse 89 08/17/17 11:33 Resp 17 08/17/17 11:33 BP 151/74 H 08/17/17 11:33 Pulse Ox 95 08/17/17 11:33 Weight - Most Recent: 123 lb 11.2 oz I&O - Last 24 hours: Intake & Output 08/16/17 08/17/17 08/17/17 22:59 06:59 14:59 Intake Total 460 200 400 Output Total 150 625 Balance 310 -425 400 Lab Results - Last 24 hrs: Laboratory Results - last 24 hr 08/16/17 08/17/17 08/17/17 Range/Units 18:00 06:54 06:54 WBC 4.59 (3.98-10.04) K/mm3 RBC 2.32 L (3.98-5.22) M/mm3 Hgb 9.2 L 8.1 L (11.2-15.7) gm/L Hct 29.0 L 25.1 L (34.1-44.9) % MCV 108.2 H (79.4-94.8) fl MCH 34.9 H (25.6-32.2) pg MCHC 32.3 (32.2-35.5) g/dl RDW Std Deviation 49.3 H (36.4-46.3) fL Plt Count 165 L (182-369) K/mm3 MPV 8.9 L (9.4-12.3) fl Neut % (Auto) 96.8 H (34.0-71.1) % Lymph % (Auto) 1.3 L (19.3-51.7) % [place] % (Auto) 1.5 L (4.7-12.5) % Eos % (Auto) 0.2 L (0.7-5.8) Baso % (Auto) 0.0 L (0.1-1.2) % Neut # (Auto) 4.44 (1.56-6.13) K/mm3 Lymph # (Auto) 0.06 L (1.18-3.74) K/mm3 [place] # (Auto) 0.07 L (0.24-0.36) K/mm3 Eos # (Auto) 0.01 L (0.04-0.36) K/mm3 Baso # (Auto) 0.00 L (0.01-0.08) K/mm3 Manual Slide Review Abnormal smear Sodium 141 (136-145) mEq/L Potassium 3.9 (3.5-5.1) mEq/L Chloride 105 (98-107) mEq/L Carbon Dioxide 24 (21-32) mEq/L Anion Gap 15.9 H (5-15) BUN 51 H (7-18) mg/dL Creatinine 1.7 H (0.55-1.02) mg/dL Est Cr Clr Drug Dosing 19.75 mL/min Estimated GFR (MDRD) 28 (>60) mL/min BUN/Creatinine Ratio 30.0 H (14-18) Glucose 137 H (83-115) mg/dL Calcium 8.1 L (8.5-10.1) mg/dL Magnesium 2.1 (1.8-2.4) mg/dl C-Reactive Protein 2.4 H* (<1.0) mg/dL PRISCA Results - Last 24 hrs: Microbiology 08/15/17 21:36 Occult Blood - Final Stool / Feces - Stool, Formed Med Orders - Current: Current Medications Acetaminophen (Tylenol) 650 mg PO Q4H PRN PRN Reason: Pain (Mild 1-3)/fever Hydrocodone Bitart/Acetaminophen (Menan 325-5 Mg) 1 tab PO Q4H PRN PRN Reason: Pain (moderate 4-6) Last Admin: 08/14/17 01:25 Dose: 1 tab Albuterol/Ipratropium (Duoneb 3.0-0.5 Mg/3 Ml) 3 ml NEB Q4H PRN PRN Reason: Shortness Of Breath/wheezing Amitriptyline HCl (Elavil) 25 - 50 mg PO BEDTIME [facility] Last Admin: 08/16/17 21:45 Dose: 25 mg Aspirin (Halfprin) 81 mg PO DAILY [facility] Last Admin: 08/17/17 08:47 Dose: 81 mg Bisacodyl (Dulcolax) 5 mg PO DAILY PRN PRN Reason: Constipation Bumetanide (Bumex) 1 mg IVPUSH DAILY [facility] Last Admin: 08/17/17 08:46 Dose: 1 mg Carvedilol (Coreg) 12.5 mg PO BID [facility] Last Admin: 08/17/17 08:46 Dose: 12.5 mg Diphenhydramine HCl (Benadryl) 25 mg IVPUSH ONETIME PRN PRN Reason: Itching Docusate Sodium (Colace) 100 mg PO BID PRN PRN Reason: Constipation Famotidine (Pepcid) 20 mg PO DAILY [facility] Last Admin: 08/17/17 08:47 Dose: 20 mg Folic Acid (Folic Acid) 1 mg PO DAILY [facility] Last Admin: 08/17/17 08:47 Dose: 1 mg Hydralazine HCl (Apresoline) 10 mg PO Q6H PRN PRN Reason: Hypertension Methylprednisolone Sodium Succinate (Solu-Medrol) 125 mg IVPUSH Q8H [facility] Last Admin: 08/17/17 05:02 Dose: 125 mg Metoprolol Tartrate (Lopressor) 5 mg IVPUSH Q4H PRN PRN Reason: Tachycardia Mometasone Furoate/Formoterol Fumar (Dulera 100-5 Mcg) 2 puff IH BID [facility] Last Admin: 08/17/17 08:41 Dose: 2 puff Ondansetron HCl (Zofran Odt) 4 mg PO Q6H PRN PRN Reason: nausea, able to take PO Ondansetron HCl (Zofran) 4 mg IV Q6H PRN PRN Reason: Nausea/Vomiting Polyethylene Glycol (Miralax) 17 gm PO DAILY PRN PRN Reason: Constipation Polysaccharide Iron Complex (Ferrex 150) 150 mg PO DAILY [facility] Last Admin: 08/17/17 08:47 Dose: 150 mg Saccharomyces Boulardii (Florastor) 250 mg PO BID [facility] Last Admin: 08/17/17 08:47 Dose: 250 mg Senna/Docusate Sodium (Senna Plus) 1 tab PO BID PRN PRN Reason: Constipation Sodium Chloride (Saline Flush) 10 ml FLUSH ASDIRECTED PRN PRN Reason: Keep Vein Open Last Admin: 08/13/17 10:27 Dose: 10 ml Temazepam (Restoril) 7.5 mg PO BEDTIME PRN PRN Reason: Sleep Vit A/Vit C/Vit E/Selen/Cu/Zn/Lutei (Icaps Mv) 1 tab PO DAILY [facility] Last Admin: 08/17/17 08:47 Dose: 1 tab Discontinued Medications Bumetanide (Bumex) 1 mg IVPUSH ONETIME ONE Stop: 08/14/17 07:01 Last Admin: 08/14/17 06:50 Dose: 1 mg Enalapril Maleate (Vasotec) 5 mg PO DAILY [facility] Last Admin: 08/14/17 09:45 Dose: 5 mg Enoxaparin Sodium (Lovenox) 30 mg SUBCUT Q24H [facility] Last Admin: 08/14/17 17:50 Dose: 30 mg Famotidine (Pepcid) 20 mg PO BID [facility] Last Admin: 08/13/17 21:27 Dose: 20 mg Furosemide (Lasix) 20 mg IVPUSH NOW ONE Stop: 08/13/17 16:15 Last Admin: 08/13/17 16:56 Dose: 20 mg Furosemide (Lasix) 40 mg PO DAILY [facility] Furosemide (Lasix) 40 mg IVPUSH NOW ONE Stop: 08/13/17 21:36 Last Admin: 08/14/17 00:04 Dose: Not Given Furosemide (Lasix) 40 mg IVPUSH DAILY ONE Stop: 08/14/17 07:01 Furosemide (Lasix) 40 mg PO DAILY [facility] Last Admin: 08/14/17 09:45 Dose: 40 mg Piperacillin Sod/Tazobactam (Sod 4.5 gm/ Sodium Chloride) 100 mls @ 200 mls/hr IV ONETIME ONE Stop: 08/13/17 13:20 Last Admin: 08/13/17 13:33 Dose: 200 mls/hr Sodium Chloride (Normal Saline) Confirm Administered Dose 100 mls @ as directed .ROUTE .STK-MED ONE Stop: 08/13/17 13:22 Last Admin: 08/13/17 13:34 Dose: Not Given Piperacillin Sod/Tazobactam (Sod 4.5 gm/ Sodium Chloride) 100 mls @ 25 mls/hr IV Q8H [facility] Last Admin: 08/14/17 05:18 Dose: 25 mls/hr Piperacillin Sod/Tazobactam (Sod 4.5 gm/ Dextrose/Water) 100 mls @ 25 mls/hr IV Q8H [facility] Clindamycin Phosphate 600 mg/ (Dextrose/Water) 104 mls @ 208 mls/hr IV Q8H [facility] Last Admin: 08/16/17 05:05 Dose: 208 mls/hr Influenza Virus Vaccine (Pharmacy To Dose - Influenza Vaccine) 1 each IM ONETIME ONE Stop: 08/14/17 09:01 Influenza Virus Vaccine (Fluzone High-Dose 2016-) 180 mcg IM .ONCE ONE Stop: 08/14/17 10:01 Methylprednisolone Sodium Succinate (Solu-Medrol) 40 mg IVPUSH DAILY [facility] Last Admin: 08/15/17 08:40 Dose: 40 mg L.Acidoph,Paracasei, B.Lactis [Probiotic ] 1 Cap 1 cap PO DAILY [facility] Ursodiol 300mg Caps 300 mg PO DAILY [facility] Pneumococcal 13-Valent Conj Vacc (Prevnar 13) 0.5 ml IM .ONCE ONE Stop: 08/14/17 08:39 Prednisone (Prednisone) 10 mg PO DAILY [facility] Last Admin: 08/14/17 09:46 Dose: 10 mg - Exam General: Reports: Alert, Oriented, Cooperative, No Acute Distress HEENT: Reports: Pupils Equal, EOMI, Mucous Membr. Moist/[place] Neck: Reports: Supple Lungs: Reports: Clear to Auscultation, Normal Respiratory Effort, Decreased Breath Sounds (bases) Cardiovascular: Reports: Regular Rate, Regular Rhythm GI/Abdominal Exam: Normal Bowel Sounds, Soft, Non-Tender (Female) Exam: Deferred Rectal (Female) Exam: Deferred Extremities: Other (ecchymosis and thin skin to arms/forearms bilaterally; LE with trace edema, scattered areas of ecchymosis and thin skin. ) Neurological: Reports: No New Focal Deficit Psy/Mental Status: Reports: Alert, Normal Affect, Normal Mood *Q Meaningful Use (DIS) - VTE *Q VTE Criteria *Q: - Stroke *Q Stroke Criteria *Q: - AMI *Q AMI Criteria *Q:
[2017-08-17 12:04] VITALS: BP 142/82
== END 2017-08-17 14:32 | disposition home or self-care (01) | DRG 603 ==
LOC: JD.ED 09:24 → UNDOADMIN 14:01 → JD.MS 14:01
PROVIDERS: ADMIT Internal Medicine; ATTEND Internal Medicine
DX: L03.115 Cellulitis of right lower limb (principal); N30.00 Acute cystitis without hematuria; I11.0 Hypertensive heart disease with heart failure; D58.9 Hereditary hemolytic anemia, unspecified; I13.0 Hypertensive heart and chronic kidney disease with heart failure and stage 1 through stage 4 chronic kidney disease, or unspecified chronic kidney disease; I50.9 Heart failure, unspecified; N18.3 Chronic kidney disease, stage 3 (moderate); Z87.891 Personal history of nicotine dependence; J44.9 Chronic obstructive pulmonary disease, unspecified; M19.90 Unspecified osteoarthritis, unspecified site; Z66 Do not resuscitate; Z96.651 Presence of right artificial knee joint; Z96.649 Presence of unspecified artificial hip joint; Z96.619 Presence of unspecified artificial shoulder joint; H91.90 Unspecified hearing loss, unspecified ear; Z79.82 Long term (current) use of aspirin; Z79.899 Other long term (current) drug therapy; R53.1 Weakness
CPT/HCPCS: 36415; 71010; 80053; 81001; 83605; 83880; 85025; 86140; 87040 ×2; 87086; 93005; 96365; 99285; J2543; J7030; J7050; P9612; 80048; 82247; 82270; 83010; 83615; 83735; 85014; 85018; 86738; 86850; 86860; 86870; 86880; 86900; 86901; 87804; 87899; 93010; 93306; 94640; 94664; 94761; 97110-GO; 97110-GP; 97116-GP; 97162-GP; 97165-GO; 97530-GO; 97530-GP; 99284-25; A9270-GY; J1650; J1940; J2920; J2930; J7060

== ENCOUNTER 2017-11-23 12:33 | Inpatient (IN) | payer MEDICARE, OTHER ==
[2017-11-23] MEDS ORDERED: Sodium Chloride 0.9% 10 ML Syringe FLUSH PRN (13:05)
--- NOTE | 2017-11-23 14:23 | EDM.PDOC ---
ED HPI GENERAL MEDICAL PROBLEM - General Chief Complaint: Cardiovascular Problem Stated Complaint: [facility] Time Seen by Provider: 11/23/17 12:43 Source of Information: Reports: Patient, RN Notes Reviewed - History of Present Illness INITIAL COMMENTS - FREE TEXT/NARRATIVE: 87-year-old lady comes in with severe generalized weakness, dyspnea worsening over the past 3-4 days. She does have history of chronic anemia, COPD, congestive heart failure, renal insufficiency in addition to other known medical problems. It sounds like she is still getting by at home barely. Now the last 2 or 3 days she has had extreme difficulty getting to and from the bathroom. It has taken a family member to help her and even with that she has extreme difficulty getting off the toilet or getting to a standing position to go to the bathroom. With even limited walking slowly she gets even more short of breath. She also does have orthopnea. Not coughing any more than usual. No obvious fever or chills. - Related Data Allergies Allergy/AdvReac Type Severity Reaction Status Date / Time No Known Allergies Allergy Verified 11/23/17 12:53 Home Meds: Home Meds Allopurinol [Zyloprim] 100 mg PO DAILY 10/11/14 [History] Amitriptyline [Elavil] 50 mg PO BEDTIME 10/11/14 [History] Fluticasone/Salmeterol [Advair 100-50] 1 puff INH DAILY 10/11/14 [History] Furosemide [Lasix] 60 mg PO DAILY 10/11/14 [History] Omeprazole 20 mg PO BIDAC 10/11/14 [History] Enalapril [Vasotec] 5 mg PO DAILY 07/05/15 [History] Carvedilol 12.5 mg PO BID 06/18/17 [History] Iron Polysaccharides Complex [Ferrex 150] 1 cap PO DAILY 06/18/17 [History] Ursodiol 300 mg PO DAILY 06/18/17 [History] Aspirin [Adult Low Dose Aspirin EC] 81 mg PO DAILY 08/13/17 [History] Hydrocodone/Acetaminophen [Hydrocodon-Acetaminophen 5-325] 1 tab PO TID PRN 11/28 [History] L.acidoph,Paracasei, B.lactis [Probiotic] 1 cap PO DAILY 08/13/17 [History] Vit A/Vit C/Vit E/Zinc/Copper [Icaps Areds Formula] 2 tab PO DAILY 08/13/17 [ History] Famotidine [Pepcid] 20 mg PO DAILY #30 tablet 08/17/17 [Rx] Folic Acid 1 mg PO DAILY #30 tablet 08/17/17 [Rx] Past Medical History HEENT History: Reports: Hard of Hearing Cardiovascular History: Reports: Hypertension Respiratory History: Reports: COPD Gastrointestinal History: Reports: Other (See Below) Other Gastrointestinal History: esophageal strictures Genitourinary History: Reports: UTI, Recurrent [employer] History: Reports: Musculoskeletal History: Reports: Arthritis Hematologic History: Reports: Anemia Dermatologic History: Reports: Benign Melanoma - Infectious Disease History Infectious Disease History: Reports: C-Difficile - Past Surgical History HEENT Surgical History: Reports: Tonsillectomy GI Surgical History: Reports: Cholecystectomy, Colonoscopy, EGD, Esophageal Dilatation Female Surgical History: Reports: Mastectomy Musculoskeletal Surgical History: Reports: Hip Replacement, Knee Replacement, Shoulder Replacement Other Musculoskeletal Surgeries/Procedures:: spinal stenosis surgery Oncologic Surgical History: Reports: None Social & Family History - Family History Family Medical History: Noncontributory - Tobacco Use Smoking Status *Q: Former Smoker Years of Tobacco use: 53 Packs/Tins Daily: 1 Used Tobacco, but Quit: Yes Month Tobacco Last Used: 2010 Second Hand Smoke Exposure: No - Caffeine Use Caffeine Use: Reports: Soda - Alcohol Use Days Per Week of Alcohol Use: 0 - Recreational Drug Use Recreational Drug Use: No ED ROS GENERAL - Review of Systems Review Of Systems: See Below Constitutional: Denies: Fever, Chills HEENT: Denies: Rhinitis, Sinus Problem, Throat Pain Respiratory: Reports: Shortness of Breath, Cough (Occasional). Denies: Wheezing , Pleuritic Chest Pain Cardiovascular: Reports: Lightheadedness. Denies: Chest Pain GI/Abdominal: Denies: Abdominal Pain, Nausea, Vomiting Skin: Denies: Rash Neurological: Reports: Dizziness, Difficulty Walking, Weakness (Generalized) ED EXAM, GENERAL - Physical Exam Exam: See Below General Appearance: Alert, Mild Distress Throat/Mouth: Normal Inspection Head: Atraumatic. No: Facial Swelling Neck: Supple, Full Range of Motion Respiratory/Chest: Lungs Clear, Normal Breath Sounds, Respiratory Distress ( Moderate tachypnea), Rales (Mild right base). No: Rhonchi, Wheezing Cardiovascular: Regular Rate, Rhythm GI/Abdominal: Soft, Non-Tender Back Exam: No: CVA Tenderness (L), CVA Tenderness (R) Extremities: Pedal Edema (Trace bilateral). No: Leg Pain Skin Exam: Warm, Dry, Normal Color EKG INTERPRETATION EKG Date: 11/23/17 Rhythm: NSR [place]: Normal P-Wave: Present QRS: Normal ST-T: Normal Course - Vital Signs Last Recorded V/S: Last Vital Signs Temp 97.9 F 11/23/17 12:48 Pulse 98 11/23/17 12:48 Resp 24 H 11/23/17 12:48 BP 132/95 H 11/23/17 12:48 Pulse Ox 96 11/23/17 12:48 - Orders/Labs/Meds Orders: Active Orders 24 hr Category Date Time Status EKG 12 Lead [EKG Documentation Completion] [RC] STAT Care 11/23/17 13:06 Active Peripheral IV Care [RC] . DIRECTED Care 11/23/17 13:06 Active ANTIBODY IDENTIFICATION [BBK] Stat Lab 11/23/17 13:15 Results CULTURE URINE [RM] Stat Lab 11/23/17 17:43 Ordered TYPE AND SCREEN [BBK] Stat Lab 11/23/17 13:15 Results Sodium Chloride 0.9% [Saline Flush] Med 11/23/17 13:05 Active 10 ml FLUSH ASDIRECTED PRN Peripheral IV Insertion Adult [OM.PC] Stat Oth 11/23/17 13:06 Ordered Medication Orders Sodium Chloride (Saline Flush) 10 ml FLUSH ASDIRECTED PRN PRN Reason: Keep Vein Open Last Admin: 11/23/17 13:26 Dose: 10 ml Labs: Laboratory Tests 11/23/17 11/23/17 11/23/17 Range/Units 13:15 13:15 13:15 WBC 3.70 L (3.98-10.04) K/mm3 RBC 2.13 L (3.98-5.22) M/mm3 Hgb 7.3 L* (11.2-15.7) gm/L Hct 24.2 L (34.1-44.9) % MCV 113.6 H (79.4-94.8) fl MCH 34.3 H (25.6-32.2) pg MCHC 30.2 L (32.2-35.5) g/dl RDW Std Deviation 51.6 H (36.4-46.3) fL Plt Count 190 (182-369) K/mm3 MPV 8.9 L (9.4-12.3) fl Neut % (Auto) 79.0 H (34.0-71.1) % Lymph % (Auto) 8.6 L (19.3-51.7) % [place] % (Auto) 9.5 (4.7-12.5) % Eos % (Auto) 1.6 (0.7-5.8) Baso % (Auto) 0.8 (0.1-1.2) % Neut # (Auto) 2.92 (1.56-6.13) K/mm3 Lymph # (Auto) 0.32 L (1.18-3.74) K/mm3 [place] # (Auto) 0.35 (0.24-0.36) K/mm3 Eos # (Auto) 0.06 (0.04-0.36) K/mm3 Baso # (Auto) 0.03 (0.01-0.08) K/mm3 Manual Slide Review Abnormal smear Sodium 141 (136-145) mEq/L Potassium 4.8 (3.5-5.1) mEq/L Chloride 109 H (98-107) mEq/L Carbon Dioxide 26 (21-32) mEq/L Anion Gap 10.8 (5-15) BUN 43 H (7-18) mg/dL Creatinine 1.9 H (0.55-1.02) mg/dL Est Cr Clr Drug Dosing 17.59 mL/min Estimated GFR (MDRD) 25 (>60) mL/min BUN/Creatinine Ratio 22.6 H (14-18) Glucose 109 (83-115) mg/dL Lactic Acid (0.4-2.0) mmol/L Calcium 7.9 L (8.5-10.1) mg/dL Total Bilirubin 0.7 (0.2-1.0) mg/dL AST 22 (15-37) U/L ALT 14 (14-59) U/L Alkaline Phosphatase 77 (46-116) U/L Troponin I < 0.017 (0.00-0.056) ng/mL C-Reactive Protein 1.8 H* (<1.0) mg/dL NT-Pro-B Natriuret Pep (0-450) pg/mL Total Protein 4.3 L (6.4-8.2) g/dl Albumin 1.5 L (3.4-5.0) g/dl Globulin 2.8 gm/dL Albumin/Globulin Ratio 0.5 L (1-2) Urine Color (Yellow) Urine Appearance (Clear) Urine pH (5.0-8.0) Ur Specific [place] (1.005-1.030) Urine Protein (Negative) Urine Glucose (UA) (Negative) Urine Ketones (Negative) Urine Occult Blood (Negative) Urine Nitrite (Negative) Urine Bilirubin (Negative) Urine Urobilinogen (0.2-1.0) Ur Leukocyte Esterase (Negative) Urine RBC (0-5) /hpf Urine WBC (0-5) /hpf Urine WBC Clumps (NOT SEEN) /hpf Ur Epithelial Cells (0-5) /hpf Urine Bacteria (FEW) /hpf Urine Mucus (FEW) /hpf Blood Type Gel Antibody Screen 11/23/17 11/23/17 11/23/17 Range/Units 13:15 13:15 13:35 WBC (3.98-10.04) K/mm3 RBC (3.98-5.22) M/mm3 Hgb (11.2-15.7) gm/L Hct (34.1-44.9) % MCV (79.4-94.8) fl MCH (25.6-32.2) pg MCHC (32.2-35.5) g/dl RDW Std Deviation (36.4-46.3) fL Plt Count (182-369) K/mm3 MPV (9.4-12.3) fl Neut % (Auto) (34.0-71.1) % Lymph % (Auto) (19.3-51.7) % [place] % (Auto) (4.7-12.5) % Eos % (Auto) (0.7-5.8) Baso % (Auto) (0.1-1.2) % Neut # (Auto) (1.56-6.13) K/mm3 Lymph # (Auto) (1.18-3.74) K/mm3 [place] # (Auto) (0.24-0.36) K/mm3 Eos # (Auto) (0.04-0.36) K/mm3 Baso # (Auto) (0.01-0.08) K/mm3 Manual Slide Review Sodium (136-145) mEq/L Potassium (3.5-5.1) mEq/L Chloride (98-107) mEq/L Carbon Dioxide (21-32) mEq/L Anion Gap (5-15) BUN (7-18) mg/dL Creatinine (0.55-1.02) mg/dL Est Cr Clr Drug Dosing mL/min Estimated GFR (MDRD) (>60) mL/min BUN/Creatinine Ratio (14-18) Glucose (83-115) mg/dL Lactic Acid 1.4 (0.4-2.0) mmol/L Calcium (8.5-10.1) mg/dL Total Bilirubin (0.2-1.0) mg/dL AST (15-37) U/L ALT (14-59) U/L Alkaline Phosphatase (46-116) U/L Troponin I (0.00-0.056) ng/mL C-Reactive Protein (<1.0) mg/dL NT-Pro-B Natriuret Pep 3704 H (0-450) pg/mL Total Protein (6.4-8.2) g/dl Albumin (3.4-5.0) g/dl Globulin gm/dL Albumin/Globulin Ratio (1-2) Urine Color (Yellow) Urine Appearance (Clear) Urine pH (5.0-8.0) Ur Specific [place] (1.005-1.030) Urine Protein (Negative) Urine Glucose (UA) (Negative) Urine Ketones (Negative) Urine Occult Blood (Negative) Urine Nitrite (Negative) Urine Bilirubin (Negative) Urine Urobilinogen (0.2-1.0) Ur Leukocyte Esterase (Negative) Urine RBC (0-5) /hpf Urine WBC (0-5) /hpf Urine WBC Clumps (NOT SEEN) /hpf Ur Epithelial Cells (0-5) /hpf Urine Bacteria (FEW) /hpf Urine Mucus (FEW) /hpf Blood Type A POSITIVE Gel Antibody Screen Positive 11/23/17 Range/Units 16:35 WBC (3.98-10.04) K/mm3 RBC (3.98-5.22) M/mm3 Hgb (11.2-15.7) gm/L Hct (34.1-44.9) % MCV (79.4-94.8) fl MCH (25.6-32.2) pg MCHC (32.2-35.5) g/dl RDW Std Deviation (36.4-46.3) fL Plt Count (182-369) K/mm3 MPV (9.4-12.3) fl Neut % (Auto) (34.0-71.1) % Lymph % (Auto) (19.3-51.7) % [place] % (Auto) (4.7-12.5) % Eos % (Auto) (0.7-5.8) Baso % (Auto) (0.1-1.2) % Neut # (Auto) (1.56-6.13) K/mm3 Lymph # (Auto) (1.18-3.74) K/mm3 [place] # (Auto) (0.24-0.36) K/mm3 Eos # (Auto) (0.04-0.36) K/mm3 Baso # (Auto) (0.01-0.08) K/mm3 Manual Slide Review Sodium (136-145) mEq/L Potassium (3.5-5.1) mEq/L Chloride (98-107) mEq/L Carbon Dioxide (21-32) mEq/L Anion Gap (5-15) BUN (7-18) mg/dL Creatinine (0.55-1.02) mg/dL Est Cr Clr Drug Dosing mL/min Estimated GFR (MDRD) (>60) mL/min BUN/Creatinine Ratio (14-18) Glucose (83-115) mg/dL Lactic Acid (0.4-2.0) mmol/L Calcium (8.5-10.1) mg/dL Total Bilirubin (0.2-1.0) mg/dL AST (15-37) U/L ALT (14-59) U/L Alkaline Phosphatase (46-116) U/L Troponin I (0.00-0.056) ng/mL C-Reactive Protein (<1.0) mg/dL NT-Pro-B Natriuret Pep (0-450) pg/mL Total Protein (6.4-8.2) g/dl Albumin (3.4-5.0) g/dl Globulin gm/dL Albumin/Globulin Ratio (1-2) Urine Color Yellow (Yellow) Urine Appearance Cloudy H (Clear) Urine pH 6.0 (5.0-8.0) Ur Specific [place] 1.025 (1.005-1.030) Urine Protein 3+ H (Negative) Urine Glucose (UA) Negative (Negative) Urine Ketones Negative (Negative) Urine Occult Blood 1+ H (Negative) Urine Nitrite Negative (Negative) Urine Bilirubin 1+ H (Negative) Urine Urobilinogen 1.0 (0.2-1.0) Ur Leukocyte Esterase 1+ H (Negative) Urine RBC 10-20 H (0-5) /hpf Urine WBC 40-50 H (0-5) /hpf Urine WBC Clumps Few (NOT SEEN) /hpf Ur Epithelial Cells Not seen (0-5) /hpf Urine Bacteria Many H (FEW) /hpf Urine Mucus Not seen (FEW) /hpf Blood Type Gel Antibody Screen Meds: Medications Generic Name Dose Route Start Last Admin Trade Name Freq PRN Reason Stop Dose Admin Sodium Chloride 10 ml 11/23/17 13:05 11/23/17 13:26 Saline Flush FLUSH 10 ml ASDIRECTED PRN Administration Keep Vein Open Discontinued Medications Generic Name Dose Route Start Last Admin Trade Name Freq PRN Reason Stop Dose Admin Hydrocodone Bitart/Acetaminophen 1 tab 11/23/17 15:59 11/23/17 16:33 [place] 325-5 Mg PO 11/23/17 16:00 1 tab ONETIME ONE Administration Hydrocodone Bitart/Acetaminophen Confirm 11/23/17 16:38 [place] 325-5 Mg Administered 11/23/17 16:39 Dose 1 tab .ROUTE .STK-MED ONE - Re-Assessments/Exams Free Text/Narrative Re-Assessment/Exam: 11/23/17 15:00. Hemoglobin has come back at 7.3. that is her biggest problem at this time. She does have some chronic COPD, chronic CHF both of which appears stable at this time. Unfortunately she has an antibody and lab is stating it will be about 2 1/2 to 3 days before we can have blood available from [place]. The patient and her daughter do not want to have to be transferred to [facility] just to receive blood. I have discussed this with Dr. Carrizales, our hospitalist. She will review this with case management. Patient is not safe to go home at this time due to severe fall risk. 11/23/17 17:27. There is consideration of transfer to [facility] for blood. They have asked recheck a catheter urine to make sure there is not a UTI, other underlying problem as well. Cath Urine does show major UTI. Urine culture has been ordered. Patient will be added for further treatment. Departure - Departure Time of Disposition: 17:26 Disposition: Admitted As Inpatient 65 Condition: Fair Clinical Impression: Weakness, Difficulty walking UTI (urinary tract infection) Qualifiers: Urinary tract infection type: acute cystitis Hematuria presence: without hematuria Qualified Code(s): N30.00 - Acute cystitis without hematuria Dyspnea Qualifiers: Dyspnea type: shortness of breath Qualified Code(s): R06.02 - Shortness of breath Referrals: Senthil Bernard Jr, MD [Primary Care Provider] - Forms: ED Department Discharge ED Communication - Discussed Case With (1) Discussed Case With (1): Admitting Provider (Dr Carrizales, decision to admits at about 17:25) - My Orders Last 24 Hours: My Active Orders 11/23/17 13:05 Sodium Chloride 0.9% [Saline Flush] 10 ml FLUSH ASDIRECTED PRN 11/23/17 13:06 EKG 12 Lead [EKG Documentation Completion] [RC] STAT Peripheral IV Care [RC] . DIRECTED Peripheral IV Insertion Adult [OM.PC] Stat 11/23/17 13:15 ANTIBODY IDENTIFICATION [BBK] Stat TYPE AND SCREEN [BBK] Stat 11/23/17 17:43 CULTURE URINE [RM] Stat - Assessment/Plan Last 24 Hours: My Active Orders 11/23/17 13:05 Sodium Chloride 0.9% [Saline Flush] 10 ml FLUSH ASDIRECTED PRN 11/23/17 13:06 EKG 12 Lead [EKG Documentation Completion] [RC] STAT Peripheral IV Care [RC] . DIRECTED Peripheral IV Insertion Adult [OM.PC] Stat 11/23/17 13:15 ANTIBODY IDENTIFICATION [BBK] Stat TYPE AND SCREEN [BBK] Stat 11/23/17 17:43 CULTURE URINE [RM] Stat
--- NOTE | 2017-11-23 14:34 | CR ---
Chest: Portable view of the chest was obtained. Comparison: Prior chest x-ray of 08/13/17. Chronic elevated right hemidiaphragm is noted with blunting of the right lateral costophrenic angle. This is stable from prior study. Parenchymal density is noted within the right midlung which is also stable and is compatible with scarring. Lungs otherwise are clear. Heart size is normal. Tortuous thoracic aorta is seen. Left shoulder prosthesis is seen. Bony structures shows mild degenerative change scattered within the spine. Impression: 1. Stable findings as noted above. Nothing acute is appreciated. Diagnostic code #2
[2017-11-23] MEDS ORDERED: Acetaminophen/HYDROcodone 325-5 MG Tab PO ONE (15:59)
[2017-11-23] MEDS ORDERED: Acetaminophen/HYDROcodone 325-5 MG Tab ONE (16:38)
[2017-11-23] MEDS ORDERED: Sodium Chloride 0.9% 1,000 ML IV SCH (18:45)
--- NOTE | 2017-11-23 19:04 | PCM.HP ---
H&P History of Present Illness - General Date of Service: 11/23/17 Admit Problem/Dx: Admission Diagnosis/Problem Admission Diagnosis/Problem UTI (urinary tract infection) due to urinary indwelling catheter Source of Information: Family, Provider History Limitations: Reports: No Limitations - History of Present Illness Initial Comments - Free Text/Narative: 87 year old female with recent lethargy, generalized weakness will be admitted to [facility]. Originally the ED plan was to transfer for a blood transfusion as a result of a need for cross match with antibodies. She however has a UTI, and thus will be treated for an acute infection. The patient presented in August 2017 with a UTI as well as cellulitis. At that time her baseline Hgb 8.1 at discharge, today it is 7.3. Onset of Symptoms: Reports: Gradual Symptom Onset Date: 11/18/17 Duration of Symptoms: Reports: Day(s):, Getting Worse Location: Reports: Generalized Quality: Reports: Same as Previous Episode Severity: Moderate Improves with: Reports: Medication Worsens with: Reports: None Associated Symptoms: Reports: Loss of Appetite, Malaise, Shortness of Breath, Weakness - Related Data Allergies/Adverse Reactions: Allergies Allergy/AdvReac Type Severity Reaction Status Date / Time No Known Allergies Allergy Verified 11/23/17 12:53 Home Medications: Home Meds Allopurinol [Zyloprim] 100 mg PO DAILY 10/11/14 [History] Amitriptyline [Elavil] 50 mg PO BEDTIME 10/11/14 [History] Fluticasone/Salmeterol [Advair 100-50] 1 puff INH DAILY 10/11/14 [History] Furosemide [Lasix] 60 mg PO DAILY 10/11/14 [History] Omeprazole 20 mg PO BIDAC 10/11/14 [History] Enalapril [Vasotec] 5 mg PO DAILY 07/05/15 [History] Carvedilol 12.5 mg PO BID 06/18/17 [History] Iron Polysaccharides Complex [Ferrex 150] 1 cap PO DAILY 06/18/17 [History] Ursodiol 300 mg PO DAILY 06/18/17 [History] Aspirin [Adult Low Dose Aspirin EC] 81 mg PO DAILY 08/13/17 [History] Hydrocodone/Acetaminophen [Hydrocodon-Acetaminophen 5-325] 1 tab PO TID PRN 11/28 [History] L.acidoph,Paracasei, B.lactis [Probiotic] 1 cap PO DAILY 08/13/17 [History] Vit A/Vit C/Vit E/Zinc/Copper [Icaps Areds Formula] 2 tab PO DAILY 08/13/17 [ History] Famotidine [Pepcid] 20 mg PO DAILY #30 tablet 08/17/17 [Rx] Folic Acid 1 mg PO DAILY #30 tablet 08/17/17 [Rx] Past Medical History HEENT History: Reports: Hard of Hearing Cardiovascular History: Reports: Hypertension Respiratory History: Reports: COPD Gastrointestinal History: Reports: Other (See Below) Other Gastrointestinal History: esophageal strictures Genitourinary History: Reports: UTI, Recurrent [employer]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: Musculoskeletal History: Reports: Arthritis Hematologic History: Reports: Anemia Dermatologic History: Reports: Benign Melanoma - Infectious Disease History Infectious Disease History: Reports: C-Difficile - Past Surgical History HEENT Surgical History: Reports: Tonsillectomy GI Surgical History: Reports: Cholecystectomy, Colonoscopy, EGD, Esophageal Dilatation Female Surgical History: Reports: Mastectomy Musculoskeletal Surgical History: Reports: Hip Replacement, Knee Replacement, Shoulder Replacement Other Musculoskeletal Surgeries/Procedures:: spinal stenosis surgery Oncologic Surgical History: Reports: None Social & Family History - Family History Family Medical History: Noncontributory - Tobacco Use Smoking Status *Q: Former Smoker Years of Tobacco use: 53 Packs/Tins Daily: 1 Used Tobacco, but Quit: Yes Month Tobacco Last Used: 2010 Second Hand Smoke Exposure: No - Caffeine Use Caffeine Use: Reports: Soda - Alcohol Use Days Per Week of Alcohol Use: 0 - Recreational Drug Use Recreational Drug Use: No H&P Review of Systems - Review of Systems: Review Of Systems: See Below General: Reports: Malaise, Weakness HEENT: Reports: No Symptoms Pulmonary: Reports: Shortness of Breath Cardiovascular: Reports: Dyspnea on Exertion, Lightheadedness Gastrointestinal: Reports: No Symptoms Genitourinary: Reports: No Symptoms Musculoskeletal: Reports: No Symptoms Skin: Reports: No Symptoms Psychiatric: Reports: No Symptoms Neurological: Reports: Dizziness, Difficulty Walking, Weakness Hematologic/Lymphatic: Reports: No Symptoms Immunologic: Reports: No Symptoms Exam - Exam Exam: See Below - Vital Signs Vital Signs: Last Vital Signs Temp 36.6 C 11/23/17 12:48 Pulse 98 11/23/17 12:48 Resp 24 H 11/23/17 12:48 BP 132/95 H 11/23/17 12:48 Pulse Ox 96 11/23/17 12:48 Weight: 54.431 kg - Exam Quality Assessment: Supplemental Oxygen, DVT Prophylaxis General: Alert, Oriented, Cooperative HEENT: Conjunctiva Clear, EOMI, Nares Patent, Normal Nasal Septum, Pupils Equal , Pupils Reactive, PERRLA Neck: Trachea Midline Lungs: Normal Respiratory Effort Cardiovascular: Regular Rate, Regular Rhythm GI/Abdominal Exam: Normal Bowel Sounds, Soft, Non-Tender, No Organomegaly, No Distention (Female) Exam: Deferred Rectal (Female) Exam: Deferred Back Exam: Normal Inspection Extremities: Normal Inspection, Normal Range of Motion, Non-Tender, Slow Capillary Refill Skin: Warm Neurological: Cranial Nerves Intact, Normal Speech Neuro Extensive - Mental Status: Alert, Oriented x3, Normal Mood/Affect, Normal Cognition, Memory Intact Neuro Extensive - Motor, Sensory, Reflexes: CN II-XII Intact Psychiatric: Alert, Normal Affect, Normal Mood - Patient Data Result Diagrams: 11/23/17 13:15 11/23/17 13:15 *Q Meaningful Use (ADM) - VTE *Q VTE Criteria *Q: - Stroke *Q Stroke Criteria *Q: - AMI *Q AMI Criteria *Q: - Problem List (1) Difficulty walking SNOMED Code(s): 929933492 ICD Code: R26.2 - DIFFICULTY IN WALKING, NOT ELSEWHERE CLASSIFIED Status: Acute Current Visit: Yes (2) Dyspnea SNOMED Code(s): 832283400 ICD Code: R06.00 - DYSPNEA, UNSPECIFIED Status: Acute Current Visit: Yes Qualifiers: Dyspnea type: shortness of breath (3) UTI (urinary tract infection) SNOMED Code(s): 78253471 ICD Code: N39.0 - URINARY TRACT INFECTION, SITE NOT SPECIFIED Status: Acute Priority: High Current Visit: Yes Qualifiers: Urinary tract infection type: acute cystitis Hematuria presence: without hematuria Qualified Code(s): N30.00 - Acute cystitis without hematuria (4) Weakness SNOMED Code(s): 03935266 ICD Code: R53.1 - WEAKNESS Status: Acute Current Visit: Yes (5) Anemia SNOMED Code(s): 599339728 ICD Code: D64.9 - ANEMIA, UNSPECIFIED Status: Acute Priority: Low Current Visit: No Qualifiers: Anemia type: other cause Other causes of anemia: other cause, not classified Qualified Code(s): D64.89 - Other specified anemias Problem List Initiated/Reviewed/Updated: Yes Orders Last 24hrs: Active Orders 24 hr Category Date Time Status Admission Status [Patient Status] [ADT] Routine ADT 11/23/17 18:23 Active Full Liquid Diet [DIET] Diet 11/23/17 Dinner Active BMP [BASIC METABOLIC PANEL,BMP] [CHEM] DAILY Lab 11/24/17 05:00 Ordered BMP [BASIC METABOLIC PANEL,BMP] [CHEM] DAILY Lab 11/25/17 05:00 Ordered BMP [BASIC METABOLIC PANEL,BMP] [CHEM] DAILY Lab 11/26/17 05:00 Ordered BMP [BASIC METABOLIC PANEL,BMP] [CHEM] DAILY Lab 11/27/17 05:00 Ordered CBC WITH AUTO DIFF [HEME] DAILY Lab 11/24/17 05:00 Ordered CBC WITH AUTO DIFF [HEME] DAILY Lab 11/25/17 05:00 Ordered CBC WITH AUTO DIFF [HEME] DAILY Lab 11/26/17 05:00 Ordered CBC WITH AUTO DIFF [HEME] DAILY Lab 11/27/17 05:00 Ordered CRP [C-REACTIVE PROTEIN] [CHEM] DAILY Lab 11/24/17 05:00 Ordered CRP [C-REACTIVE PROTEIN] [CHEM] DAILY Lab 11/25/17 05:00 Ordered CRP [C-REACTIVE PROTEIN] [CHEM] DAILY Lab 11/26/17 05:00 Ordered CRP [C-REACTIVE PROTEIN] [CHEM] DAILY Lab 11/27/17 05:00 Ordered HAPTOGLOBIN [REF] Routine Lab 11/24/17 05:00 Ordered INFLUENZA A+B AG SCREEN [RM] Routine Lab 11/23/17 18:45 Uncollected LACTATE DEHYDROGENASE,LDH [CHEM] Routine Lab 11/24/17 05:00 Ordered MAGNESIUM [CHEM] DAILY Lab 11/24/17 05:00 Ordered MAGNESIUM [CHEM] DAILY Lab 11/25/17 05:00 Ordered MAGNESIUM [CHEM] DAILY Lab 11/26/17 05:00 Ordered MAGNESIUM [CHEM] DAILY Lab 11/27/17 05:00 Ordered MYCOPLASMA PNEUMONIAE IGM AB [CHEM] Routine Lab 11/24/17 05:00 Ordered STREP PNEUMONIAE ANTIGEN [MREF] Routine Lab 11/23/17 18:46 Uncollected Acetaminophen/HYDROcodone [[place] 325-5 MG] Med 11/23/17 18:32 Active 1 tab PO TID PRN Allopurinol [Zyloprim] Med 11/24/17 09:00 Active 100 mg PO DAILY Amitriptyline [Elavil] Med 11/23/17 21:00 Active 50 mg PO BEDTIME Aspirin [Halfprin] Med 11/24/17 09:00 Active 81 mg PO DAILY Carvedilol [Coreg] Med 11/23/17 21:00 Active 12.5 mg PO BID Famotidine [Pepcid] Med 11/24/17 09:00 Active 20 mg PO DAILY Fluticasone/Salmeterol Med 11/24/17 09:00 Ordered 1 puff INH DAILY Folic Acid Med 11/24/17 09:00 Active 1 mg PO DAILY Furosemide [Lasix] Med 11/24/17 09:00 Active 60 mg PO DAILY Iron Polysaccharides Complex [Ferrex 150] Med 11/24/17 09:00 Ordered DOSE mg PO DAILY L.acidoph,Paracasei, B.lactis [Probiotic] Med 11/24/17 09:00 Ordered 1 cap PO DAILY Omeprazole Med 11/24/17 06:00 Ordered 20 mg PO BIDAC Sodium Chloride 0.9% [Normal Saline] 1,000 ml Med 11/23/17 18:45 Ordered IV ASDIRECTED Ursodiol Med 11/24/17 09:00 Ordered 300 mg PO DAILY Vit A/Vit C/Vit E/Zinc/Copper [Icaps Areds Formula] Med 11/24/17 09:00 Ordered 2 tab PO DAILY Medication Orders Hydrocodone Bitart/Acetaminophen ([place] 325-5 Mg) 1 tab PO TID PRN PRN Reason: Pain (moderate 4-6) Allopurinol (Zyloprim) 100 mg PO DAILY [facility] Amitriptyline HCl (Elavil) 50 mg PO BEDTIME [facility] Aspirin (Halfprin) 81 mg PO DAILY [facility] Carvedilol (Coreg) 12.5 mg PO BID [facility] Famotidine (Pepcid) 20 mg PO DAILY [facility] Folic Acid (Folic Acid) 1 mg PO DAILY [facility] Furosemide (Lasix) 60 mg PO DAILY [facility] Sodium Chloride (Normal Saline) 1,000 mls @ 75 mls/hr IV ASDIRECTED [facility] Mometasone Furoate/Formoterol Fumar (Dulera 100-5 Mcg) 2 puff IH DAILY [facility] Non-Formulary Medication (L.Acidoph,Paracasei, B.Lactis [Probiotic]) 1 cap PO DAILY [facility] Non-Formulary Medication (Ursodiol) 300 mg PO DAILY [facility] Non-Formulary Medication (Vit A/Vit C/Vit E/Zinc/Copper [Icaps Areds Formula]) 2 tab PO DAILY [facility] Pantoprazole Sodium (Protonix) 40 mg PO BIDAC [facility] Polysaccharide Iron Complex (Ferrex 150) 150 mg PO DAILY [facility] Sodium Chloride (Saline Flush) 10 ml FLUSH ASDIRECTED PRN PRN Reason: Keep Vein Open Last Admin: 11/23/17 13:26 Dose: 10 ml Assessment/Plan Comment:: Impression: History of anemia, last reported Hgb 8.1 (08/2017) Unable ro receive PRBCs because of Abs may take up to 3 days. AUTI, last admission had similar treatment; UC pending CHF/CMP--LVEF 30-35% 2014 Chronic HTN Hx of Melanoma COPD History of C Diff Plan: Rocephin 2 gm Q 24 hours PRBCs if available before DC Screen for resp infection: Influenza Check stool for C diff/occult blood IVF Diurese as needed. Home meds Daily labs DVT/GI prophylaxis Consult PT/OT/SW (re: SNF)
[2017-11-23] MEDS ORDERED: Acetaminophen 325 MG Tab PO PRN (20:10)
[2017-11-23] MEDS: Carvedilol 12.5 MG Tab PO SCH (20:36)
[2017-11-23] MEDS: Amitriptyline 25 MG Tab PO SCH (20:36)
[2017-11-23] MEDS: Heparin Sodium 5,000 Units/ML Vial SUBCUT SCH (20:37)
[2017-11-24] MEDS: Acetaminophen/HYDROcodone 325-5 MG Tab PO PRN ×2 (03:32→22:40)
[2017-11-24] MEDS: Pantoprazole 40 MG Tab.CR PO SCH ×2 (07:04→16:54)
[2017-11-24] MEDS ORDERED: Furosemide 20 MG/2 ML VIAL IVPUSH ONE (08:00)
[2017-11-24] MEDS: Formoterol/Mometasone 100-5 MCG 8.8 GM Inhaler IH SCH (08:47)
[2017-11-24] MEDS: Heparin Sodium 5,000 Units/ML Vial SUBCUT SCH ×2 (09:10→22:36)
[2017-11-24] MEDS: Carvedilol 12.5 MG Tab PO SCH ×2 (09:14→22:37)
[2017-11-24] MEDS: Saccharomyces Boulardii (Probiotic) 250 MG Cap PO SCH (09:14)
[2017-11-24] MEDS: Famotidine 20 MG Tab PO SCH (09:14)
[2017-11-24] MEDS: Folic Acid 1 MG Tab PO SCH (09:15)
[2017-11-24] MEDS: Aspirin 81 MG Tab.EC PO SCH (09:15)
[2017-11-24] MEDS: Multivitamins with Minerals/Folic Acid/Lutein/Zeaxanth Tab PO SCH (09:15)
[2017-11-24] MEDS: Iron Polysaccharides Complex 150 MG Cap PO SCH (09:15)
[2017-11-24] MEDS: Allopurinol 100 MG Tab PO SCH (09:15)
[2017-11-24] MEDS: Furosemide 20 MG Tab PO SCH (09:40)
--- NOTE | 2017-11-24 13:07 | PCM.PN ---
- General Info Date of Service: 11/24/17 Functional Status: Reports: Tolerating Diet, Urinating - Review of Systems General: Reports: Weakness HEENT: Reports: No Symptoms Pulmonary: Reports: No Symptoms Cardiovascular: Reports: No Symptoms Gastrointestinal: Reports: No Symptoms Genitourinary: Reports: No Symptoms Musculoskeletal: Reports: No Symptoms Skin: Reports: No Symptoms Neurological: Reports: No Symptoms Psychiatric: Reports: No Symptoms - Patient Data Vitals - Most Recent: Last Vital Signs Temp 36.3 C 11/24/17 09:08 Pulse 73 11/24/17 09:14 Resp 16 11/24/17 09:08 BP 110/59 L 11/24/17 09:14 Pulse Ox 91 L 11/24/17 09:08 Weight - Most Recent: 51.965 kg I&O - Last 24 Hours: Intake & Output 11/23/17 11/24/17 11/24/17 22:59 06:59 14:59 Intake Total 520 300 Balance 520 300 Lab Results Last 24 Hours: Laboratory Results - last 24 hr 11/24/17 11/24/17 11/24/17 Range/Units 07:00 07:00 07:00 WBC 2.69 L (3.98-10.04) K/mm3 RBC 1.94 L (3.98-5.22) M/mm3 Hgb 6.6 L* (11.2-15.7) gm/L Hct 22.3 L (34.1-44.9) % MCV 114.9 H (79.4-94.8) fl MCH 34.0 H (25.6-32.2) pg MCHC 29.6 L (32.2-35.5) g/dl RDW Std Deviation 51.8 H (36.4-46.3) fL Plt Count 178 L (182-369) K/mm3 MPV 9.0 L (9.4-12.3) fl Neut % (Auto) 75.0 H (34.0-71.1) % Lymph % (Auto) 10.4 L (19.3-51.7) % [place] % (Auto) 11.9 (4.7-12.5) % Eos % (Auto) 1.9 (0.7-5.8) Baso % (Auto) 0.4 (0.1-1.2) % Neut # (Auto) 2.02 (1.56-6.13) K/mm3 Lymph # (Auto) 0.28 L (1.18-3.74) K/mm3 [place] # (Auto) 0.32 (0.24-0.36) K/mm3 Eos # (Auto) 0.05 (0.04-0.36) K/mm3 Baso # (Auto) 0.01 (0.01-0.08) K/mm3 Manual Slide Review Abnormal smear Sodium 142 (136-145) mEq/L Potassium 4.9 (3.5-5.1) mEq/L Chloride 110 H (98-107) mEq/L Carbon Dioxide 26 (21-32) mEq/L Anion Gap 10.9 (5-15) BUN 41 H (7-18) mg/dL Creatinine 1.8 H (0.55-1.02) mg/dL Est Cr Clr Drug Dosing 17.72 mL/min Estimated GFR (MDRD) 27 (>60) mL/min BUN/Creatinine Ratio 22.8 H (14-18) Glucose 85 (83-115) mg/dL Calcium 7.7 L (8.5-10.1) mg/dL Magnesium 2.2 (1.8-2.4) mg/dl Lactate Dehydrogenase 245 H (81-234) U/L C-Reactive Protein 1.0 (<1.0) mg/dL NT-Pro-B Natriuret Pep 3486 H (0-450) pg/mL C.difficile [id number]-[id number] C. difficile Tox (PCR) Mycoplasma pneumon IgM Negative (NEGATIVE) 11/24/17 Range/Units 08:00 WBC (3.98-10.04) K/mm3 RBC (3.98-5.22) M/mm3 Hgb (11.2-15.7) gm/L Hct (34.1-44.9) % MCV (79.4-94.8) fl MCH (25.6-32.2) pg MCHC (32.2-35.5) g/dl RDW Std Deviation (36.4-46.3) fL Plt Count (182-369) K/mm3 MPV (9.4-12.3) fl Neut % (Auto) (34.0-71.1) % Lymph % (Auto) (19.3-51.7) % [place] % (Auto) (4.7-12.5) % Eos % (Auto) (0.7-5.8) Baso % (Auto) (0.1-1.2) % Neut # (Auto) (1.56-6.13) K/mm3 Lymph # (Auto) (1.18-3.74) K/mm3 [place] # (Auto) (0.24-0.36) K/mm3 Eos # (Auto) (0.04-0.36) K/mm3 Baso # (Auto) (0.01-0.08) K/mm3 Manual Slide Review Sodium (136-145) mEq/L Potassium (3.5-5.1) mEq/L Chloride (98-107) mEq/L Carbon Dioxide (21-32) mEq/L Anion Gap (5-15) BUN (7-18) mg/dL Creatinine (0.55-1.02) mg/dL Est Cr Clr Drug Dosing mL/min Estimated GFR (MDRD) (>60) mL/min BUN/Creatinine Ratio (14-18) Glucose (83-115) mg/dL Calcium (8.5-10.1) mg/dL Magnesium (1.8-2.4) mg/dl Lactate Dehydrogenase (81-234) U/L C-Reactive Protein (<1.0) mg/dL NT-Pro-B Natriuret Pep (0-450) pg/mL C.difficile [id number] Presumptive negative C. difficile Tox (PCR) Negative Mycoplasma pneumon IgM (NEGATIVE) Rogelio Results Last 24 Hours: Microbiology 11/23/17 21:10 Influenza Type A Antigen Screen - Final Nasal, Unspecified NEGATIVE INFLUENZA A VIRUS AG Influenza Type B Antigen Screen - Final NEGATIVE INFLUENZA B VIRUS AG Med Orders - Current: Current Medications Acetaminophen (Tylenol) 650 mg PO Q6H PRN PRN Reason: Pain/Fever Hydrocodone Bitart/Acetaminophen ([place] 325-5 Mg) 1 tab PO TID PRN PRN Reason: Pain (moderate 4-6) Last Admin: 11/24/17 03:32 Dose: 1 tab Allopurinol (Zyloprim) 100 mg PO DAILY [facility] Last Admin: 11/24/17 09:15 Dose: 100 mg Amitriptyline HCl (Elavil) 50 mg PO BEDTIME [facility] Last Admin: 11/23/17 20:36 Dose: 50 mg Aspirin (Halfprin) 81 mg PO DAILY [facility] Last Admin: 11/24/17 09:15 Dose: 81 mg Carvedilol (Coreg) 12.5 mg PO BID [facility] Last Admin: 11/24/17 09:14 Dose: 12.5 mg Famotidine (Pepcid) 20 mg PO DAILY [facility] Last Admin: 11/24/17 09:14 Dose: 20 mg Folic Acid (Folic Acid) 1 mg PO DAILY [facility] Last Admin: 11/24/17 09:15 Dose: 1 mg Furosemide (Lasix) 60 mg PO DAILY [facility] Last Admin: 11/24/17 09:40 Dose: 60 mg Heparin Sodium (Porcine) (Heparin Sodium) 5,000 units SUBCUT Q12HR [facility] Last Admin: 11/24/17 09:10 Dose: 5,000 units Sodium Chloride (Normal Saline) 1,000 mls @ 75 mls/hr IV ASDIRECTED [facility] Last Admin: 11/23/17 20:36 Dose: 75 mls/hr Ceftriaxone Sodium 2 gm/ (Dextrose/Water) 100 mls @ 200 mls/hr IV Q24H [facility] Last Admin: 11/24/17 10:39 Dose: 200 mls/hr Mometasone Furoate/Formoterol Fumar (Dulera 100-5 Mcg) 2 puff IH DAILY [facility] Last Admin: 11/24/17 08:47 Dose: 2 puff Pantoprazole Sodium (Protonix) 40 mg PO BIDAC [facility] Last Admin: 11/24/17 07:04 Dose: 40 mg Ursodiol 300 Mg 0 each PO DAILY [facility] Polysaccharide Iron Complex (Ferrex 150) 150 mg PO DAILY [facility] Last Admin: 11/24/17 09:15 Dose: 150 mg Saccharomyces Boulardii (Florastor) 250 mg PO DAILY [facility] Last Admin: 11/24/17 09:14 Dose: 250 mg Sodium Chloride (Saline Flush) 10 ml FLUSH ASDIRECTED PRN PRN Reason: Keep Vein Open Last Admin: 11/23/17 13:26 Dose: 10 ml Vit A/Vit C/Vit E/Selen/Cu/Zn/Lutei (Icaps Mv) 2 tab PO DAILY [facility] Last Admin: 11/24/17 09:15 Dose: 2 tab Discontinued Medications Hydrocodone Bitart/Acetaminophen ([place] 325-5 Mg) 1 tab PO ONETIME ONE Stop: 11/23/17 16:00 Last Admin: 11/23/17 16:33 Dose: 1 tab Hydrocodone Bitart/Acetaminophen ([place] 325-5 Mg) Confirm Administered Dose 1 tab .ROUTE .STK-MED ONE Stop: 11/23/17 16:39 Last Admin: 11/23/17 19:43 Dose: Not Given Furosemide (Lasix) 20 mg IVPUSH ONETIME ONE Stop: 11/24/17 08:01 Last Admin: 11/24/17 09:24 Dose: 20 mg - Exam Quality Assessment: Supplemental Oxygen, DVT Prophylaxis General: Alert, Oriented, Cooperative HEENT: Pupils Equal, Pupils Reactive, EOMI Neck: Trachea Midline Lungs: Normal Respiratory Effort Cardiovascular: Regular Rate, Regular Rhythm GI/Abdominal Exam: Normal Bowel Sounds, Soft, Non-Tender, No Organomegaly, No Distention (Female) Exam: Deferred Back Exam: Normal Inspection Extremities: Normal Inspection, Slow Capillary Refill Skin: Warm Neurological: No New Focal Deficit Psy/Mental Status: Alert, Normal Affect, Normal Mood - Problem List & Annotations (1) Difficulty walking SNOMED Code(s): 869066025 Code(s): R26.2 - DIFFICULTY IN WALKING, NOT ELSEWHERE CLASSIFIED Status: Acute Current Visit: Yes (2) Dyspnea SNOMED Code(s): 467994865 Code(s): R06.00 - DYSPNEA, UNSPECIFIED Status: Acute Current Visit: Yes Qualifiers: Dyspnea type: shortness of breath Qualified Code(s): R06.02 - Shortness of breath; R06.00 - Dyspnea, unspecified; R06.01 - Orthopnea (3) UTI (urinary tract infection) SNOMED Code(s): 13564373 Code(s): N39.0 - URINARY TRACT INFECTION, SITE NOT SPECIFIED Status: Acute Priority: High Current Visit: Yes Qualifiers: Urinary tract infection type: acute cystitis Hematuria presence: without hematuria Qualified Code(s): N30.00 - Acute cystitis without hematuria (4) Weakness SNOMED Code(s): 90525269 Code(s): R53.1 - WEAKNESS Status: Acute Current Visit: Yes (5) Anemia SNOMED Code(s): 296734639 Code(s): D64.9 - ANEMIA, UNSPECIFIED Status: Acute Priority: Low Current Visit: No Qualifiers: Anemia type: other cause Other causes of anemia: other cause, not classified Qualified Code(s): D64.89 - Other specified anemias - Problem List Review Problem List Initiated/Reviewed/Updated: Yes - My Orders Last 24 Hours: My Active Orders 11/23/17 18:32 Acetaminophen/HYDROcodone [[place] 325-5 MG] 1 tab PO TID PRN 11/23/17 18:35 STREP PNEUMONIAE ANTIGEN [MREF] Routine 11/23/17 18:45 Sodium Chloride 0.9% [Normal Saline] 1,000 ml IV ASDIRECTED 11/23/17 19:25 Antiembolic Devices [RC] QSHIFT CINDY Hose [Antiembolic Hose] [OM.PC] Routine 11/23/17 19:38 Resuscitation Status Routine 11/23/17 19:58 Consult to Occupational Therapy [OT Evaluation and Treatment] [CONS] Routine Consult to Physical Therapy [PT Evaluation and Treatment] [CONS] Routine 11/23/17 19:59 Consult to Scleroscope Tester [CONS] Routine 11/23/17 20:10 Acetaminophen [Tylenol] 650 mg PO Q6H PRN 11/23/17 21:00 Amitriptyline [Elavil] 50 mg PO BEDTIME Carvedilol [Coreg] 12.5 mg PO BID Heparin Sodium 5,000 units SUBCUT Q12HR 11/23/17 Dinner Full Liquid Diet [DIET] 11/24/17 03:17 Up With Assistance [RC] ASDIRECTED 11/24/17 06:00 Pantoprazole [ProTONIX] 40 mg PO BIDAC 11/24/17 07:00 HAPTOGLOBIN [REF] Routine 11/24/17 08:00 OCCULT BLOOD SCREEN [OP] Routine Occult Blood Diagnostic GI [OCCULT BLOOD DIAGNOSTIC] [OP] Routine 11/24/17 09:00 Allopurinol [Zyloprim] 100 mg PO DAILY Aspirin [Halfprin] 81 mg PO DAILY Famotidine [Pepcid] 20 mg PO DAILY Folic Acid 1 mg PO DAILY Furosemide [Lasix] 60 mg PO DAILY Iron Polysaccharides Complex [Ferrex 150] 150 mg PO DAILY Mometasone/Formoterol [Dulera 100-5 MCG] 2 puff IH DAILY Multivitamins/Min/FA/Lut/Zeax [ICaps MV] 2 tab PO DAILY Patient's Own Medication [Ptom] 0 each PO DAILY Saccharomyces Boulardii [Florastor] 250 mg PO DAILY 11/24/17 09:32 RED BLOOD CELLS LP [BBK] Routine Transfuse Red Blood Cells [COMM] Routine 11/24/17 11:00 cefTRIAXone [Rocephin] 2 gm Dextrose 5% in Water 100 ml IV Q24H 11/25/17 05:00 BMP [BASIC METABOLIC PANEL,BMP] [CHEM] DAILY CBC WITH AUTO DIFF [HEME] DAILY CRP [C-REACTIVE PROTEIN] [CHEM] DAILY MAGNESIUM [CHEM] DAILY PRO B-TYPE NATRIUR PEPT,BNPPRO [CHEM] DAILY 11/26/17 05:00 BMP [BASIC METABOLIC PANEL,BMP] [CHEM] DAILY CBC WITH AUTO DIFF [HEME] DAILY CRP [C-REACTIVE PROTEIN] [CHEM] DAILY MAGNESIUM [CHEM] DAILY PRO B-TYPE NATRIUR PEPT,BNPPRO [CHEM] DAILY 11/26/17 07:00 CBC W/O DIFF,HEMOGRAM [HEME] MOTH@0700 11/27/17 05:00 BMP [BASIC METABOLIC PANEL,BMP] [CHEM] DAILY CBC WITH AUTO DIFF [HEME] DAILY CRP [C-REACTIVE PROTEIN] [CHEM] DAILY MAGNESIUM [CHEM] DAILY 11/30/17 07:00 CBC W/O DIFF,HEMOGRAM [HEME] MOTH@0700 12/03/17 07:00 CBC W/O DIFF,HEMOGRAM [HEME] MOTH@0700 12/07/17 07:00 CBC W/O DIFF,HEMOGRAM [HEME] MOTH@0700 12/10/17 07:00 CBC W/O DIFF,HEMOGRAM [HEME] MOTH@0700 12/14/17 07:00 CBC W/O DIFF,HEMOGRAM [HEME] MOTH@0700 - Plan Plan:: Impression: History of anemia, last reported Hgb 8.1 (08/2017) Unable ro receive PRBCs because of Abs may take up to 3 days. AUTI, last admission had similar treatment; UC pending CHF/CMP--LVEF 30-35% 2014 Chronic HTN Hx of Melanoma COPD History of C Diff Plan: Rocephin 2 gm Q 24 hours PRBCs if available before DC Screen for resp infection: Influenza IVF Diurese as needed. Home meds Daily labs DVT/GI prophylaxis Consult PT/OT/SW (re: SNF)
[2017-11-24] MEDS: Amitriptyline 25 MG Tab PO SCH (22:37)
[2017-11-25] MEDS: Pantoprazole 40 MG Tab.CR PO SCH (05:09)
[2017-11-25] MEDS: Formoterol/Mometasone 100-5 MCG 8.8 GM Inhaler IH SCH (08:06)
[2017-11-25] MEDS: Saccharomyces Boulardii (Probiotic) 250 MG Cap PO SCH (09:23)
[2017-11-25] MEDS: Aspirin 81 MG Tab.EC PO SCH (09:23)
[2017-11-25] MEDS: Allopurinol 100 MG Tab PO SCH (09:24)
[2017-11-25] MEDS: Carvedilol 12.5 MG Tab PO SCH (09:24)
[2017-11-25] MEDS: Iron Polysaccharides Complex 150 MG Cap PO SCH (09:24)
[2017-11-25] MEDS: Furosemide 20 MG Tab PO SCH (09:24)
[2017-11-25] MEDS: Folic Acid 1 MG Tab PO SCH (09:24)
[2017-11-25] MEDS: Famotidine 20 MG Tab PO SCH (09:24)
[2017-11-25] MEDS: Multivitamins with Minerals/Folic Acid/Lutein/Zeaxanth Tab PO SCH (09:25)
[2017-11-25] MEDS: Heparin Sodium 5,000 Units/ML Vial SUBCUT SCH (09:28)
[2017-11-25] MEDS: Acetaminophen/HYDROcodone 325-5 MG Tab PO PRN (10:51)
--- NOTE | 2017-11-25 13:59 | PCM.DCSUM1 ---
Discharge Summary - Hospital Course Free Text/Narrative:: 87 year old female with recent lethargy, generalized weakness will be admitted to [facility]. Originally the ED plan was to transfer for a blood transfusion as a result of a need for cross match with antibodies. She however has a UTI, and thus will be treated for an acute infection. The patient presented in August 2017 with a UTI as well as cellulitis. At that time her baseline Hgb 8.1 at discharge, today it is 7.3. Possible blood transfusion TBA after treatment of active infection. The patient is being discharged after treatment for AUTI. She received 2 days of IV Rocephin. A prescription for Keflex has been provided. She has been accepted as an observation admission at [facility] for PRBCs. [facility] has 4 units which will match. She has a history of warm auto- antibodies. She will receive Ag blood; her blood transfusion requirements was discussed with one of the medical records clerk, Brandi. A follow up call was made to alert the lab that the patient has been accepted for observation and will require PRBCs. The number of units is per the hospitalist, Dr Cochran who has kindly accepted the patient. She is expected to be DCd tomorrow after her transfusions are completed. - Discharge Data Discharge Date: 11/25/17 Discharge Disposition: Home, Self-Care 01 Condition: Good - Discharge Diagnosis/Problem(s) (1) Difficulty walking SNOMED Code(s): 154371756 ICD Code: R26.2 - DIFFICULTY IN WALKING, NOT ELSEWHERE CLASSIFIED Status: Acute Current Visit: Yes (2) Dyspnea SNOMED Code(s): 261514281 ICD Code: R06.00 - DYSPNEA, UNSPECIFIED Status: Acute Current Visit: Yes Qualifiers: Dyspnea type: shortness of breath Qualified Code(s): R06.02 - Shortness of breath; R06.00 - Dyspnea, unspecified; R06.01 - Orthopnea (3) UTI (urinary tract infection) SNOMED Code(s): 48648271 ICD Code: N39.0 - URINARY TRACT INFECTION, SITE NOT SPECIFIED Status: Acute Priority: High Current Visit: Yes Qualifiers: Urinary tract infection type: acute cystitis Hematuria presence: without hematuria Qualified Code(s): N30.00 - Acute cystitis without hematuria (4) Weakness SNOMED Code(s): 38430985 ICD Code: R53.1 - WEAKNESS Status: Acute Current Visit: Yes (5) Anemia SNOMED Code(s): 871151462 ICD Code: D64.9 - ANEMIA, UNSPECIFIED Status: Acute Priority: Low Current Visit: No Qualifiers: Anemia type: other cause Other causes of anemia: other cause, not classified Qualified Code(s): D64.89 - Other specified anemias - Patient Summary/Data Consults: Consultations 11/23/17 19:58 Consult to Occupational Therapy [OT Evaluation and Treatment] [CONS] Routine Consult to Physical Therapy [PT Evaluation and Treatment] [CONS] Routine 11/23/17 19:59 Consult to [place] [CONS] Routine 11/24/17 07:16 PT Evaluation and Treatment [CONS] Routine - Patient Instructions Diet: Regular Diet as Tolerated Activity: As Tolerated Driving: Do Not Drive Showering/Bathing: May Shower Notify Provider of: Fever, Nausea and/or Vomiting - Discharge Plan Prescriptions/Med Rec: Cephalexin [Keflex] 250 mg PO Q6HR #20 cap Thiamine [Vitamin B-1] 100 mg PO BEDTIME #30 tablet Home Medications: Home Meds Allopurinol [Zyloprim] 100 mg PO DAILY 10/11/14 [History] Amitriptyline [Elavil] 50 mg PO BEDTIME 10/11/14 [History] Fluticasone/Salmeterol [Advair 100-50] 1 puff INH DAILY 10/11/14 [History] Furosemide [Lasix] 60 mg PO DAILY 10/11/14 [History] Omeprazole 20 mg PO BIDAC 10/11/14 [History] Enalapril [Vasotec] 5 mg PO DAILY 07/05/15 [History] Carvedilol 12.5 mg PO BID 06/18/17 [History] Iron Polysaccharides Complex [Ferrex 150] 1 cap PO DAILY 06/18/17 [History] Ursodiol 300 mg PO BID 06/18/17 [History] Aspirin [Adult Low Dose Aspirin EC] 81 mg PO DAILY 08/13/17 [History] Hydrocodone/Acetaminophen [Hydrocodon-Acetaminophen 5-325] 1 tab PO TID PRN 11/28 [History] L.acidoph,Paracasei, B.lactis [Probiotic] 1 cap PO DAILY 08/13/17 [History] Vit A/Vit C/Vit E/Zinc/Copper [Icaps Areds Formula] 2 tab PO DAILY 08/13/17 [ History] Famotidine [Pepcid] 20 mg PO DAILY #30 tablet 08/17/17 [Rx] Folic Acid 1 mg PO DAILY #30 tablet 08/17/17 [Rx] Cephalexin [Keflex] 250 mg PO Q6HR #20 cap 11/25/17 [Rx] Thiamine [Vitamin B-1] 100 mg PO BEDTIME #30 tablet 11/25/17 [Rx] Patient Handouts: Shortness of Breath, Adult, [id number], Weakness, Easy-to- Read Forms: ED Department Discharge Referrals: Senthil Bernard Jr, MD [Primary Care Provider] - - Discharge Summary/Plan Comment DC Time >30 min.: No Discharge Summary/Plan Comment: Impression: History of anemia, last reported Hgb 8.1 (08/2017); will be transfused after DCd. Patient has been accepted by Dr Cochran as an observation for PRBCs. AUTI, last admission had similar treatment; UC pending; Will be DCd on Keflex for 5 days. CHF/CMP--LVEF 30-35% 2014 Chronic HTN Hx of Melanoma COPD History of C Diff Plan: Rocephin 2 gm Q 24 hours, completed PRBCs at [facility] Screen for resp infection: Influenza--negative Diurese as needed. Home meds Daily labs DVT/GI prophylaxis Consult PT/OT/SW (re: SNF) - General Info Date of Service: 11/23/17 Functional Status: Reports: Pain Controlled, Tolerating Diet, Ambulating, Urinating - Review of Systems General: Reports: Weakness HEENT: Reports: No Symptoms Pulmonary: Reports: No Symptoms Cardiovascular: Reports: No Symptoms Gastrointestinal: Reports: No Symptoms Genitourinary: Reports: No Symptoms Musculoskeletal: Reports: No Symptoms Skin: Reports: No Symptoms Neurological: Reports: No Symptoms Psychiatric: Reports: No Symptoms - Patient Data Vitals - Most Recent: Last Vital Signs Temp 36.6 C 11/25/17 09:21 Pulse 68 11/25/17 09:24 Resp 16 11/25/17 09:21 BP 118/52 L 11/25/17 09:24 Pulse Ox 95 11/25/17 09:21 Weight - Most Recent: 52.39 kg I&O - Last 24 hours: Intake & Output 11/24/17 11/25/17 11/25/17 22:59 06:59 14:59 Intake Total 930 400 240 Output Total 450 Balance 480 400 240 Lab Results - Last 24 hrs: Laboratory Results - last 24 hr 11/24/17 11/25/17 11/25/17 Range/Units 07:00 05:50 05:50 WBC 2.94 L (3.98-10.04) K/mm3 RBC 1.81 L (3.98-5.22) M/mm3 Hgb 6.2 L* (11.2-15.7) gm/L Hct 20.5 L (34.1-44.9) % MCV 113.3 H (79.4-94.8) fl MCH 34.3 H (25.6-32.2) pg MCHC 30.2 L (32.2-35.5) g/dl RDW Std Deviation 50.8 H (36.4-46.3) fL Plt Count 162 L (182-369) K/mm3 MPV 9.1 L (9.4-12.3) fl Neut % (Auto) 75.5 H (34.0-71.1) % Lymph % (Auto) 7.8 L (19.3-51.7) % [place] % (Auto) 11.6 (4.7-12.5) % Eos % (Auto) 4.4 (0.7-5.8) Baso % (Auto) 0.7 (0.1-1.2) % Neut # (Auto) 2.22 (1.56-6.13) K/mm3 Lymph # (Auto) 0.23 L (1.18-3.74) K/mm3 [place] # (Auto) 0.34 (0.24-0.36) K/mm3 Eos # (Auto) 0.13 (0.04-0.36) K/mm3 Baso # (Auto) 0.02 (0.01-0.08) K/mm3 Manual Slide Review Abnormal smear Haptoglobin <10 L (44-215) mg/dL Sodium 139 (136-145) mEq/L Potassium 4.9 (3.5-5.1) mEq/L Chloride 107 (98-107) mEq/L Carbon Dioxide 24 (21-32) mEq/L Anion Gap 12.9 (5-15) BUN 42 H (7-18) mg/dL Creatinine 1.9 H (0.55-1.02) mg/dL Est Cr Clr Drug Dosing 16.93 mL/min Estimated GFR (MDRD) 25 (>60) mL/min BUN/Creatinine Ratio 22.1 H (14-18) Glucose 87 (83-115) mg/dL Calcium 8.0 L (8.5-10.1) mg/dL Magnesium 2.0 (1.8-2.4) mg/dl C-Reactive Protein 1.2 H* (<1.0) mg/dL NT-Pro-B Natriuret Pep (0-450) pg/mL 11/25/17 Range/Units 05:50 WBC (3.98-10.04) K/mm3 RBC (3.98-5.22) M/mm3 Hgb (11.2-15.7) gm/L Hct (34.1-44.9) % MCV (79.4-94.8) fl MCH (25.6-32.2) pg MCHC (32.2-35.5) g/dl RDW Std Deviation (36.4-46.3) fL Plt Count (182-369) K/mm3 MPV (9.4-12.3) fl Neut % (Auto) (34.0-71.1) % Lymph % (Auto) (19.3-51.7) % [place] % (Auto) (4.7-12.5) % Eos % (Auto) (0.7-5.8) Baso % (Auto) (0.1-1.2) % Neut # (Auto) (1.56-6.13) K/mm3 Lymph # (Auto) (1.18-3.74) K/mm3 [place] # (Auto) (0.24-0.36) K/mm3 Eos # (Auto) (0.04-0.36) K/mm3 Baso # (Auto) (0.01-0.08) K/mm3 Manual Slide Review Haptoglobin (44-215) mg/dL Sodium (136-145) mEq/L Potassium (3.5-5.1) mEq/L Chloride (98-107) mEq/L Carbon Dioxide (21-32) mEq/L Anion Gap (5-15) BUN (7-18) mg/dL Creatinine (0.55-1.02) mg/dL Est Cr Clr Drug Dosing mL/min Estimated GFR (MDRD) (>60) mL/min BUN/Creatinine Ratio (14-18) Glucose (83-115) mg/dL Calcium (8.5-10.1) mg/dL Magnesium (1.8-2.4) mg/dl C-Reactive Protein (<1.0) mg/dL NT-Pro-B Natriuret Pep 3393 H (0-450) pg/mL PRISCA Results - Last 24 hrs: Microbiology 11/24/17 08:00 Stool Occult Blood (PRISCA) - Final Stool / Feces 11/23/17 18:35 Streptococcus pneumoniae Antigen (M - Final Urine Med Orders - Current: Current Medications Acetaminophen (Tylenol) 650 mg PO Q6H PRN PRN Reason: Pain/Fever Hydrocodone Bitart/Acetaminophen ([place]atum 325-5 Mg) 1 tab PO TID PRN PRN Reason: Pain (moderate 4-6) Last Admin: 11/25/17 10:51 Dose: 1 tab Allopurinol (Zyloprim) 100 mg PO DAILY [facility] Last Admin: 11/25/17 09:24 Dose: 100 mg Amitriptyline HCl (Elavil) 50 mg PO BEDTIME [facility] Last Admin: 11/24/17 22:37 Dose: 50 mg Aspirin (Halfprin) 81 mg PO DAILY [facility] Last Admin: 11/25/17 09:23 Dose: 81 mg Carvedilol (Coreg) 12.5 mg PO BID [facility] Last Admin: 11/25/17 09:24 Dose: 12.5 mg Cephalexin (Keflex) 250 mg PO Q6H [facility] Famotidine (Pepcid) 20 mg PO DAILY [facility] Last Admin: 11/25/17 09:24 Dose: 20 mg Folic Acid (Folic Acid) 1 mg PO DAILY [facility] Last Admin: 11/25/17 09:24 Dose: 1 mg Furosemide (Lasix) 60 mg PO DAILY [facility] Last Admin: 11/25/17 09:24 Dose: 60 mg Heparin Sodium (Porcine) (Heparin Sodium) 5,000 units SUBCUT Q12HR [facility] Last Admin: 11/25/17 09:28 Dose: 5,000 units Ceftriaxone Sodium 2 gm/ (Dextrose/Water) 100 mls @ 200 mls/hr IV Q24H [facility] Last Admin: 11/25/17 10:41 Dose: 200 mls/hr Mometasone Furoate/Formoterol Fumar (Dulera 100-5 Mcg) 2 puff IH DAILY [facility] Last Admin: 11/25/17 08:06 Dose: 2 puff Pantoprazole Sodium (Protonix) 40 mg PO BIDAC [facility] Last Admin: 11/25/17 05:09 Dose: 40 mg Ursodiol 300 Mg 0 each PO DAILY [facility] Last Admin: 11/25/17 10:00 Dose: Not Given Polysaccharide Iron Complex (Ferrex 150) 150 mg PO DAILY [facility] Last Admin: 11/25/17 09:24 Dose: 150 mg Saccharomyces Boulardii (Florastor) 250 mg PO DAILY [facility] Last Admin: 11/25/17 09:23 Dose: 250 mg Sodium Chloride (Saline Flush) 10 ml FLUSH ASDIRECTED PRN PRN Reason: Keep Vein Open Last Admin: 11/23/17 13:26 Dose: 10 ml Thiamine HCl (Vitamin B-1) 100 mg PO BEDTIME [facility] Vit A/Vit C/Vit E/Selen/Cu/Zn/Lutei (Icaps Mv) 2 tab PO DAILY [facility] Last Admin: 11/25/17 09:25 Dose: 2 tab Discontinued Medications Hydrocodone Bitart/Acetaminophen ([place]atum 325-5 Mg) 1 tab PO ONETIME ONE Stop: 11/23/17 16:00 Last Admin: 11/23/17 16:33 Dose: 1 tab Hydrocodone Bitart/Acetaminophen ([place]atum 325-5 Mg) Confirm Administered Dose 1 tab .ROUTE .STK-MED ONE Stop: 11/23/17 16:39 Last Admin: 11/23/17 19:43 Dose: Not Given Furosemide (Lasix) 20 mg IVPUSH ONETIME ONE Stop: 11/24/17 08:01 Last Admin: 11/24/17 09:24 Dose: 20 mg Sodium Chloride (Normal Saline) 1,000 mls @ 75 mls/hr IV ASDIRECTED [facility] Last Admin: 11/23/17 20:36 Dose: 75 mls/hr - Exam Quality Assessment: Reports: Supplemental Oxygen, DVT Prophylaxis General: Reports: Alert, Oriented, Cooperative, No Acute Distress HEENT: Reports: Pupils Equal, Pupils Reactive, EOMI Neck: Reports: Trachea Midline, No JVD Lungs: Reports: Normal Respiratory Effort Cardiovascular: Reports: Regular Rate, Regular Rhythm GI/Abdominal Exam: Normal Bowel Sounds, Soft, Non-Tender, No Organomegaly (Female) Exam: Deferred Rectal (Female) Exam: Deferred Back Exam: Reports: Normal Inspection Extremities: Normal Inspection, Slow Capillary Refill Skin: Reports: Warm Neurological: Reports: No New Focal Deficit Psy/Mental Status: Reports: Alert, Normal Affect, Normal Mood *Q Meaningful Use (DIS) - VTE *Q VTE Criteria *Q: - Stroke *Q Stroke Criteria *Q: - AMI *Q AMI Criteria *Q:
[2017-11-25 17:12] VITALS: BP 111/69
[2017-11-25] MEDS ORDERED: Cephalexin 250 MG Cap PO SCH (18:00)
[2017-11-25] MEDS ORDERED: Thiamine 100 MG Tab PO SCH (21:00)
== END 2017-11-25 16:47 | disposition home or self-care (01) | DRG 700 ==
LOC: JD.ED 12:33 → JD.MS 17:48
PROVIDERS: ADMIT Internal Medicine Cardiovascular Disease; ATTEND Internal Medicine Cardiovascular Disease
DX: N30.00 Acute cystitis without hematuria (principal); T83.511A Infection and inflammatory reaction due to indwelling urethral catheter, initial encounter; R26.2 Difficulty in walking, not elsewhere classified; R06.00 Dyspnea, unspecified; I13.0 Hypertensive heart and chronic kidney disease with heart failure and stage 1 through stage 4 chronic kidney disease, or unspecified chronic kidney disease; D64.9 Anemia, unspecified; N18.9 Chronic kidney disease, unspecified; Z87.81 Personal history of (healed) traumatic fracture; I11.0 Hypertensive heart disease with heart failure; I50.9 Heart failure, unspecified; J44.9 Chronic obstructive pulmonary disease, unspecified; R53.1 Weakness; M19.90 Unspecified osteoarthritis, unspecified site; H91.90 Unspecified hearing loss, unspecified ear; Z87.891 Personal history of nicotine dependence; Z79.82 Long term (current) use of aspirin; Z79.899 Other long term (current) drug therapy
CPT/HCPCS: 36415; 71045; 80053; 81001; 83605; 83880; 84484; 85025; 86140; 87086; 87088; 87186; 93005; 99285; J7050; P9612; 80048; 82272; 83010; 83615; 83735; 86738; 86850; 86870; 86900; 86901; 87493; 87804; 87899; 93010; 94664; 94761; 97110-GO; 97110-GP; 97140-GP; 97162-GP; 97167-GO; 97530-GO; 97530-GP; A9270-GY; J0696; J1644; J7040; J7060

== ENCOUNTER 2018-01-04 14:52 | Emergency (ER) | payer MEDICARE, OTHER ==
[2018-01-04 15:02] VITALS: BP 155/73
--- NOTE | 2018-01-04 15:27 | EDM.PDOC ---
ED HPI GENERAL MEDICAL PROBLEM - General Chief Complaint: Cardiovascular Problem Stated Complaint: [facility] Time Seen by Provider: 01/04/18 15:05 Source of Information: Reports: Patient, Family (Daughter), RN Notes Reviewed - History of Present Illness INITIAL COMMENTS - FREE TEXT/NARRATIVE: 87-year-old female comes in with dyspnea at rest, much worse with even minimal exertion. This has been worsening over the past week or so. Her history is somewhat complicated in that she does have history of anemia. She was transfused a couple units of packed cells at a [facility] about a month ago. Her daughter states that this her furosemide 60 mg daily was stopped at that time. It has not been restarted. She has had weakness and generalized fatigue. Not coughing any more than usual. No recent fever or chills. Appetite has been diminished. No melena or hematochezia. Back Pain Score (Numeric/FACES): 4 - Related Data Allergies Allergy/AdvReac Type Severity Reaction Status Date / Time No Known Allergies Allergy Verified 11/23/17 12:53 Home Meds: Home Meds Allopurinol [Zyloprim] 100 mg PO DAILY 10/11/14 [History] Amitriptyline [Elavil] 25 - 50 mg PO BEDTIME 10/11/14 [History] Fluticasone/Salmeterol [Advair 100-50] 1 puff INH DAILY 10/11/14 [History] Omeprazole 20 mg PO BIDAC 10/11/14 [History] Enalapril [Vasotec] 5 mg PO DAILY 07/05/15 [History] Carvedilol 12.5 mg PO BID 06/18/17 [History] Iron Polysaccharides Complex [Ferrex 150] 1 cap PO DAILY 06/18/17 [History] Ursodiol 300 mg PO BID 06/18/17 [History] Aspirin [Adult Low Dose Aspirin EC] 81 mg PO DAILY 08/13/17 [History] Hydrocodone/Acetaminophen [Hydrocodon-Acetaminophen 5-325] 1 tab PO TID PRN 11/28 [History] L.acidoph,Paracasei, B.lactis [Probiotic] 1 cap PO DAILY 08/13/17 [History] Vit A/Vit C/Vit E/Zinc/Copper [Icaps Areds Formula] 2 tab PO DAILY 08/13/17 [ History] Famotidine [Pepcid] 20 mg PO DAILY #30 tablet 08/17/17 [Rx] Folic Acid 1 mg PO DAILY #30 tablet 08/17/17 [Rx] Thiamine [Vitamin B-1] 100 mg PO BEDTIME #30 tablet 11/25/17 [Rx] Nitrofurantoin Monohyd/M-Cryst [Macrobid 100 mg Capsule] 100 mg PO BID 01/04/18 [History] Past Medical History HEENT History: Reports: Hard of Hearing Cardiovascular History: Reports: Hypertension Respiratory History: Reports: COPD Gastrointestinal History: Reports: Other (See Below) Other Gastrointestinal History: esophageal strictures Genitourinary History: Reports: UTI, Recurrent Other Genitourinary History: bile duct stent BILINGUAL SPEECH THERAPIST History: Reports: Musculoskeletal History: Reports: Arthritis Neurological History: Reports: Migraines Endocrine/Metabolic History: Reports: None Hematologic History: Reports: Anemia Other Hematologic History: hemolytic anemia Immunologic History: Reports: None Oncologic (Cancer) History: Reports: Other (See Below) Other Oncologic History: malignant melanoma on different areas of body Dermatologic History: Reports: Benign Melanoma - Infectious Disease History Infectious Disease History: Reports: C-Difficile Other Infectious Disease History: about 1.5 years ago - Past Surgical History Head Surgeries/Procedures: Reports: None HEENT Surgical History: Reports: Tonsillectomy GI Surgical History: Reports: Cholecystectomy, Colonoscopy, EGD, Esophageal Dilatation Female Surgical History: Reports: Mastectomy Endocrine Surgical History: Reports: None Neurological Surgical History: Reports: Other (See Below) Other Neurological Surgeries/Procedures: surgery for spinal stenosis Musculoskeletal Surgical History: Reports: Hip Replacement, Knee Replacement, Shoulder Replacement Other Musculoskeletal Surgeries/Procedures:: spinal stenosis surgery Oncologic Surgical History: Reports: None Social & Family History - Family History Family Medical History: Noncontributory Cardiac: Reports: Heart Failure Oncologic: Reports: Leukemia, Other (See Below) Other Oncologic Family History: parent - Tobacco Use Smoking Status *Q: Former Smoker Years of Tobacco use: 53 Packs/Tins Daily: 1 Used Tobacco, but Quit: Yes Month/Year Tobacco Last Used: 17 yrs ago Second Hand Smoke Exposure: No - Caffeine Use Caffeine Use: Reports: Coffee, Soda, Tea - Alcohol Use Days Per Week of Alcohol Use: 0 - Recreational Drug Use Recreational Drug Use: No ED ROS GENERAL - Review of Systems Review Of Systems: See Below Constitutional: Reports: Weakness, Fatigue. Denies: Fever, Chills, Diaphoresis HEENT: Denies: Sinus Problem, Throat Pain Respiratory: Reports: Shortness of Breath. Denies: Pleuritic Chest Pain, Cough Cardiovascular: Denies: Chest Pain Endocrine: Reports: Fatigue GI/Abdominal: Reports: Decreased Appetite. Denies: Abdominal Pain, Nausea, Vomiting Musculoskeletal: Reports: Back Pain (Chronic) Skin: Reports: Erythema (Multiple areas of increased erythema and bruising) Neurological: Reports: Dizziness, Difficulty Walking (Generalized due to shortness of breath and generalized weakness), Weakness. Denies: Trouble Speaking ED EXAM, GENERAL - Physical Exam Exam: See Below General Appearance: Alert, Mild Distress Eye Exam: Bilateral Eye: PERRL Throat/Mouth: Normal Inspection Head: No: Facial Swelling Neck: Supple, Full Range of Motion, Other (No JVD) Respiratory/Chest: Respiratory Distress (Moderate tachypnea), Rales (Mild inspiratory rales both bases). No: Rhonchi, Wheezing Cardiovascular: Tachycardia GI/Abdominal: Soft, Non-Tender Extremities: Pedal Edema Neurological: Alert, Oriented, No Motor/Sensory Deficits Skin Exam: Warm, Dry, Erythema, Other (Patient has a pressure ulcer right ischio tuberosity area of right buttock that daughter states been present for over a month about 3 cm size with surrounding erythema slight oozing of blood at this time.) Course - Vital Signs Last Recorded V/S: Last Vital Signs Temp 96.5 F 01/04/18 15:00 Pulse 102 H 01/04/18 15:00 Resp 24 H 01/04/18 15:00 BP 155/73 H 01/04/18 15:00 Pulse Ox 82 L 01/04/18 15:00 - Orders/Labs/Meds Orders: Active Orders 24 hr Category Date Time Status EKG 12 Lead [EKG Documentation Completion] [RC] STAT Care 01/04/18 15:19 Active Chest 1V Frontal [CR] Stat Exams 01/04/18 15:19 Taken CULTURE URINE [RM] Stat Lab 01/04/18 17:15 Ordered PRO B-TYPE NATRIUR PEPT,BNPPRO [CHEM] Stat Lab 01/04/18 15:45 Received Labs: Laboratory Tests 01/04/18 01/04/18 01/04/18 Range/Units 14:25 15:45 15:45 WBC 4.81 (3.98-10.04) K/mm3 RBC 2.01 L (3.98-5.22) M/mm3 Hgb 7.0 L* (11.2-15.7) gm/L Hct 23.6 L (34.1-44.9) % MCV 117.4 H (79.4-94.8) fl MCH 34.8 H (25.6-32.2) pg MCHC 29.7 L (32.2-35.5) g/dl RDW Std Deviation 64.4 H (36.4-46.3) fL Plt Count 234 (182-369) K/mm3 MPV 8.1 L (9.4-12.3) fl Neut % (Auto) 82.8 H (34.0-71.1) % Lymph % (Auto) 5.4 L (19.3-51.7) % [place] % (Auto) 8.1 (4.7-12.5) % Eos % (Auto) 2.7 (0.7-5.8) Baso % (Auto) 0.8 (0.1-1.2) % Neut # (Auto) 3.98 (1.56-6.13) K/mm3 Lymph # (Auto) 0.26 L (1.18-3.74) K/mm3 [place] # (Auto) 0.39 H (0.24-0.36) K/mm3 Eos # (Auto) 0.13 (0.04-0.36) K/mm3 Baso # (Auto) 0.04 (0.01-0.08) K/mm3 Manual Slide Review Abnormal smear Sodium 141 (136-145) mEq/L Potassium 5.1 (3.5-5.1) mEq/L Chloride 111 H (98-107) mEq/L Carbon Dioxide 25 (21-32) mEq/L Anion Gap 10.1 (5-15) BUN 39 H (7-18) mg/dL Creatinine 1.7 H (0.55-1.02) mg/dL Est Cr Clr Drug Dosing 18.84 mL/min Estimated GFR (MDRD) 28 (>60) mL/min BUN/Creatinine Ratio 22.9 H (14-18) Glucose 102 (83-115) mg/dL Calcium 8.0 L (8.5-10.1) mg/dL Total Bilirubin 0.6 (0.2-1.0) mg/dL AST 15 (15-37) U/L ALT 11 L (14-59) U/L Alkaline Phosphatase 93 (46-116) U/L Troponin I < 0.017 (0.00-0.056) ng/mL Total Protein 4.5 L (6.4-8.2) g/dl Albumin 1.6 L (3.4-5.0) g/dl Globulin 2.9 gm/dL Albumin/Globulin Ratio 0.6 L (1-2) Urine Color Dark yellow (Yellow) Urine Appearance Slt cloudy H (Clear) Urine pH 5.5 (5.0-8.0) Ur Specific [place] > or = 1.030 (1.005-1.030) Urine Protein 3+ H (Negative) Urine Glucose (UA) Negative (Negative) Urine Ketones Negative (Negative) Urine Occult Blood 2+ H (Negative) Urine Nitrite Negative (Negative) Urine Bilirubin 1+ H (Negative) Urine Urobilinogen 0.2 (0.2-1.0) Ur Leukocyte Esterase Negative (Negative) Urine RBC 10-20 H (0-5) /hpf Urine WBC 5-10 H (0-5) /hpf Ur Epithelial Cells 0-5 (0-5) /hpf Amorphous Sediment Many H (NOT SEEN) /hpf Urine Bacteria Moderate H (FEW) /hpf Urine Mucus Not seen (FEW) /hpf Meds: Medications Discontinued Medications Generic Name Dose Route Start Last Admin Trade Name Freq PRN Reason Stop Dose Admin Furosemide 20 mg 01/04/18 16:05 01/04/18 16:12 Lasix IVPUSH 01/04/18 16:06 20 mg NOW ONE Administration - Re-Assessments/Exams Free Text/Narrative Re-Assessment/Exam: 01/04/18 17:12. Chest x-ray shows mild pulmonary congestion. O2 sats were only 82% on arrival to ED. History she is very short of breath at rest and then even more short of breath with any attempt at walking making that almost impossible today. Hemoglobin is come back at 7.0. Therefore she does have the severe recurrent anemia and now underlying heart failure on top of her chronic COPD and just not able to oxygenate. I did discuss this with our hospitalist Dr. Carrizales here at [facility]. She does have a complicated antibody she does not want to repeat admission here to our hospital. She states 1 month ago that i t was quite complicated waiting for blood and than "after 3 days she was asked to sign for blood that still wasn't completely crossmatched". She feels that with her going to [facility] and having the blood bank right there this can all be done much more efficiently. Dr. Cochran, Hospitalist division director for [facility] accepting provider. Transferred by ground ambulance. Departure - Departure Time of Disposition: 17:30 Disposition: DC/Tfer to [facility] 02 Reason for Transfer *Q: Other Condition: Serious Clinical Impression: Hypoxia Anemia Qualifiers: Anemia type: other cause Other causes of anemia: other cause, not classified Qualified Code(s): D64.89 - Other specified anemias Congestive heart failure Qualifiers: Qualified Code(s): I50.9 - Heart failure, unspecified Referrals: Senthil Bernard Jr, MD [Primary Care Provider] - Forms: ED Department Discharge - My Orders Last 24 Hours: My Active Orders 01/04/18 15:19 EKG 12 Lead [EKG Documentation Completion] [RC] STAT Chest 1V Frontal [CR] Stat 01/04/18 15:45 PRO B-TYPE NATRIUR PEPT,BNPPRO [CHEM] Stat 01/04/18 17:15 CULTURE URINE [RM] Stat - Assessment/Plan Last 24 Hours: My Active Orders 01/04/18 15:19 EKG 12 Lead [EKG Documentation Completion] [RC] STAT Chest 1V Frontal [CR] Stat 01/04/18 15:45 PRO B-TYPE NATRIUR PEPT,BNPPRO [CHEM] Stat 01/04/18 17:15 CULTURE URINE [RM] Stat
[2018-01-04] MEDS ORDERED: Labetalol 100 MG/20 ML MDV IVPUSH ONE (16:00)
[2018-01-04] MEDS ORDERED: Furosemide 40 MG/4 ML VIAL IVPUSH ONE (16:05)
--- NOTE | 2018-01-04 18:11 | CR ---
Chest: Portable view of the chest was obtained. Comparison: Prior chest x-ray of 11/23/17. Increasing parenchymal/pleural change is seen within the right lung base from previous exam. Uncertain if this represents increase pleural effusion being loculated or represents pleural thickening and actual parenchymal density. Noncontrast chest CT would be helpful to further evaluate. Left lung is clear. Bilateral shoulder prosthesis are noted. Slight degenerative change is seen within the spine with minimal scoliosis. Impression: 1. Parenchymal/pleural change within the right base as described above. Diagnostic code #3
== END 2018-01-04 17:50 ==
LOC: JD.ED 14:52 → SUPCPDRO 14:52 → JD.ED 17:50
DX: I11.0 Hypertensive heart disease with heart failure (principal); I50.9 Heart failure, unspecified; D64.89 Other specified anemias; R09.02 Hypoxemia; Z79.899 Other long term (current) drug therapy; Z79.82 Long term (current) use of aspirin; Z87.891 Personal history of nicotine dependence
CPT/HCPCS: 36415; 71045; 80053; 81001; 83880; 84484; 85025; 87086; 93005; 96374; 99285; J1940; 93010

== ENCOUNTER 2018-01-31 08:06 | Inpatient (IN) | payer MEDICARE, OTHER ==
[2018-01-31] MEDS ORDERED: Sodium Chloride 0.9% 10 ML Syringe FLUSH PRN (08:31)
[2018-01-31] MEDS ORDERED: Ondansetron 4 MG/2 ML SDV IVPUSH ONE (08:32)
[2018-01-31] MEDS ORDERED: HYDROmorphone 0.5 MG/0.5 ML SYRINGE IVPUSH ONE ×2 (08:32→08:47)
--- NOTE | 2018-01-31 08:38 | EDM.PDOC ---
ED HPI GENERAL MEDICAL PROBLEM - General Chief Complaint: Gastrointestinal Problem Stated Complaint: [facility] Time Seen by Provider: 01/31/18 08:17 Source of Information: Reports: Patient, Family, Usp Records History Limitations: Reports: No Limitations - History of Present Illness INITIAL COMMENTS - FREE TEXT/NARRATIVE: [facility]. She was vomiting last night and she had generalized abdominal pain and body aches. She was doing good on Thursday but on Thursday she took a turn for the worst. Her and her family are looking to get her on Hospice. On Thursday she was to alert and she did not meet criteria. She has a history of CHF and anemia. She also has some kidney disease. She has no fever or chills. She was vomiting last night. She has generalized pain now. She has many areas of ecchymosis under the skin. She has no urinated since yesterday. Her oxygen saturations were low at the penitentiary and here. Onset: Gradual Duration: Day(s): (5) Location: Reports: Generalized Quality: Reports: Ache Severity: Severe Improves with: Reports: None Worsens with: Reports: None Associated Symptoms: Reports: Nausea/Vomiting, Shortness of Breath. Denies: Chest Pain, Cough, Fever/Chills, Headaches Generalized Pain Score (Numeric/FACES): 8 - Related Data Allergies Allergy/AdvReac Type Severity Reaction Status Date / Time No Known Allergies Allergy Verified 01/31/18 08:14 Home Meds: Home Meds Allopurinol [Zyloprim] 100 mg PO DAILY 10/11/14 [History] Amitriptyline [Elavil] 25 - 50 mg PO BEDTIME 10/11/14 [History] Fluticasone/Salmeterol [Advair 100-50] 1 puff INH DAILY 10/11/14 [History] Omeprazole 20 mg PO BIDAC 10/11/14 [History] Enalapril [Vasotec] 5 mg PO DAILY 07/05/15 [History] Carvedilol 12.5 mg PO BID 06/18/17 [History] Iron Polysaccharides Complex [Ferrex 150] 1 cap PO DAILY 06/18/17 [History] Ursodiol 300 mg PO BID 06/18/17 [History] Aspirin [Adult Low Dose Aspirin EC] 81 mg PO DAILY 08/13/17 [History] Hydrocodone/Acetaminophen [Hydrocodon-Acetaminophen 5-325] 1 tab PO TID PRN 11/28 [History] L.acidoph,Paracasei, B.lactis [Probiotic] 1 cap PO DAILY 08/13/17 [History] Vit A/Vit C/Vit E/Zinc/Copper [Icaps Areds Formula] 2 tab PO DAILY 08/13/17 [ History] Famotidine [Pepcid] 20 mg PO DAILY #30 tablet 08/17/17 [Rx] Folic Acid 1 mg PO DAILY #30 tablet 08/17/17 [Rx] Thiamine [Vitamin B-1] 100 mg PO BEDTIME #30 tablet 11/25/17 [Rx] Nitrofurantoin Monohyd/M-Cryst [Macrobid 100 mg Capsule] 100 mg PO BID 01/04/18 [History] fentaNYL [Duragesic] 1 patch TD Q72H #3 patch 01/31/18 [Rx] Past Medical History HEENT History: Reports: Hard of Hearing Cardiovascular History: Reports: Hypertension Respiratory History: Reports: COPD Gastrointestinal History: Reports: Other (See Below) Other Gastrointestinal History: esophageal strictures Genitourinary History: Reports: UTI, Recurrent Other Genitourinary History: 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 duct 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: Musculoskeletal History: Reports: Arthritis Neurological History: Reports: Migraines Endocrine/Metabolic History: Reports: None Hematologic History: Reports: Anemia Other Hematologic History: hemolytic anemia Immunologic History: Reports: None Oncologic (Cancer) History: Reports: Other (See Below) Other Oncologic History: malignant melanoma on different areas of body Dermatologic History: Reports: Benign Melanoma - Infectious Disease History Infectious Disease History: Reports: C-Difficile Other Infectious Disease History: about 1.5 years ago - Past Surgical History Head Surgeries/Procedures: Reports: None HEENT Surgical History: Reports: Tonsillectomy GI Surgical History: Reports: Cholecystectomy, Colonoscopy, EGD, Esophageal Dilatation Female Surgical History: Reports: Mastectomy Endocrine Surgical History: Reports: None Neurological Surgical History: Reports: Other (See Below) Other Neurological Surgeries/Procedures: surgery for spinal stenosis Musculoskeletal Surgical History: Reports: Hip Replacement, Knee Replacement, Shoulder Replacement Other Musculoskeletal Surgeries/Procedures:: spinal stenosis surgery Oncologic Surgical History: Reports: None Social & Family History - Family History Family Medical History: Noncontributory Cardiac: Reports: Heart Failure Oncologic: Reports: Leukemia, Other (See Below) Other Oncologic Family History: parent - Tobacco Use Smoking Status *Q: Never Smoker Years of Tobacco use: 53 Packs/Tins Daily: 1 Used Tobacco, but Quit: Yes Month/Year Tobacco Last Used: 17 yrs ago Second Hand Smoke Exposure: No - Caffeine Use Caffeine Use: Reports: Coffee, Soda, Tea - Alcohol Use Days Per Week of Alcohol Use: 0 - Recreational Drug Use Recreational Drug Use: No ED ROS GENERAL - Review of Systems Review Of Systems: See Below Constitutional: Reports: Malaise, Weakness, Fatigue. Denies: Fever, Chills HEENT: Reports: No Symptoms Respiratory: Reports: Shortness of Breath. Denies: Cough Cardiovascular: Reports: No Symptoms Endocrine: Reports: Fatigue GI/Abdominal: Reports: Abdominal Pain, Nausea, Vomiting : Reports: Other (She has not urinated in over a day) Musculoskeletal: Reports: Muscle Pain Skin: Reports: Other (Many areas of ecchymosis under the skin) Neurological: Reports: Confusion (mild) ED EXAM, GI/ABD - Physical Exam Exam: See Below Exam Limited By: No Limitations General Appearance: Alert, No Apparent Distress Ears: Normal External Exam Nose: Normal Inspection Throat/Mouth: Other (Dry mucus membranes) Head: Atraumatic, Normocephalic Neck: Normal Inspection Respiratory/Chest: No Respiratory Distress, Decreased Breath Sounds, Rales Cardiovascular: Regular Rate, Rhythm, No Edema, No Murmur GI/Abdominal Exam: Soft, No Organomegaly, Tender (Mild to moderate generalized tenderness) Course - Vital Signs Last Recorded V/S: Last Vital Signs Temp 97.5 F 01/31/18 08:09 Pulse 78 01/31/18 08:09 Resp 18 01/31/18 08:09 BP 66/41 L 01/31/18 08:09 Pulse Ox 88 L 01/31/18 08:09 - Orders/Labs/Meds Orders: Active Orders 24 hr Category Date Time Status Cardiac Monitoring [RC] . DIRECTED Care 01/31/18 08:31 Active Peripheral IV Care [RC] . DIRECTED Care 01/31/18 08:32 Active Sodium Chloride 0.9% [Saline Flush] Med 01/31/18 08:31 Active 10 ml FLUSH ASDIRECTED PRN fentaNYL [Duragesic] Med 01/31/18 11:00 Active 12 mcg TRDERM Q72H Peripheral IV Insertion Adult [OM.PC] Stat Oth 01/31/18 08:31 Ordered Medication Orders Fentanyl (Duragesic) 12 mcg TRDERM Q72H MEHDI Sodium Chloride (Saline Flush) 10 ml FLUSH ASDIRECTED PRN PRN Reason: Keep Vein Open Last Admin: 01/31/18 08:43 Dose: 10 ml Labs: Laboratory Tests 01/31/18 01/31/18 Range/Units 08:45 08:57 WBC 5.53 (3.98-10.04) K/mm3 RBC 2.23 L (3.98-5.22) M/mm3 Hgb 7.5 L (11.2-15.7) gm/L Hct 23.9 L (34.1-44.9) % MCV 107.2 H (79.4-94.8) fl MCH 33.6 H (25.6-32.2) pg MCHC 31.4 L (32.2-35.5) g/dl RDW Std Deviation 54.5 H (36.4-46.3) fL Plt Count 203 (182-369) K/mm3 MPV 9.4 (9.4-12.3) fl Neut % (Auto) 87.6 H (34.0-71.1) % Lymph % (Auto) 3.3 L (19.3-51.7) % [place] % (Auto) 8.7 (4.7-12.5) % Eos % (Auto) 0.2 L (0.7-5.8) Baso % (Auto) 0.0 L (0.1-1.2) % Neut # (Auto) 4.85 (1.56-6.13) K/mm3 Lymph # (Auto) 0.18 L (1.18-3.74) K/mm3 [place] # (Auto) 0.48 H (0.24-0.36) K/mm3 Eos # (Auto) 0.01 L (0.04-0.36) K/mm3 Baso # (Auto) 0.00 L (0.01-0.08) K/mm3 Manual Slide Review Abnormal smear Sodium 133 L (136-145) mEq/L Potassium 4.5 (3.5-5.1) mEq/L Chloride 97 L (98-107) mEq/L Carbon Dioxide 19 L (21-32) mEq/L Anion Gap 21.5 H (5-15) BUN 180 H (7-18) mg/dL Creatinine 4.2 H (0.55-1.02) mg/dL Est Cr Clr Drug Dosing 7.51 mL/min Estimated GFR (MDRD) 10 (>60) mL/min BUN/Creatinine Ratio 42.9 H (14-18) Glucose 73 L (83-115) mg/dL Calcium 7.4 L (8.5-10.1) mg/dL Magnesium 1.6 L (1.8-2.4) mg/dl Total Bilirubin 0.5 (0.2-1.0) mg/dL AST 22 (15-37) U/L ALT 18 (14-59) U/L Alkaline Phosphatase 68 (46-116) U/L Total Protein 3.8 L (6.4-8.2) g/dl Albumin 1.3 L (3.4-5.0) g/dl Globulin 2.5 gm/dL Albumin/Globulin Ratio 0.5 L (1-2) Lipase 564 H (73-393) U/L Meds: Medications Generic Name Dose Route Start Last Admin Trade Name Freq PRN Reason Stop Dose Admin Fentanyl 12 mcg 01/31/18 11:00 Duragesic TRDERM Q72H MEHDI Sodium Chloride 10 ml 01/31/18 08:31 01/31/18 08:43 Saline Flush FLUSH 10 ml ASDIRECTED PRN Administration Keep Vein Open Discontinued Medications Generic Name Dose Route Start Last Admin Trade Name Freq PRN Reason Stop Dose Admin Fentanyl 100 mcg 01/31/18 09:17 01/31/18 09:22 Sublimaze IVPUSH 01/31/18 09:18 100 mcg ONETIME ONE Administration Fentanyl 100 mcg 01/31/18 10:25 01/31/18 10:32 Sublimaze IVPUSH 01/31/18 10:26 100 mcg ONETIME ONE Administration Fentanyl 100 mcg 01/31/18 10:26 Sublimaze IVPUSH 01/31/18 10:27 ONETIME ONE Hydromorphone HCl 0.5 mg 01/31/18 08:32 01/31/18 08:44 Dilaudid IVPUSH 01/31/18 08:33 0.5 mg ONETIME ONE Administration Hydromorphone HCl 0.5 mg 01/31/18 08:47 01/31/18 09:05 Dilaudid IVPUSH 01/31/18 08:48 0.5 mg ONETIME ONE Administration Ketorolac Tromethamine 30 mg 01/31/18 10:57 Toradol IVPUSH 01/31/18 10:58 ONETIME ONE Morphine Sulfate 4 mg 01/31/18 10:00 01/31/18 10:03 Morphine IVPUSH 01/31/18 10:01 4 mg ONETIME ONE Administration Ondansetron HCl 4 mg 01/31/18 08:32 01/31/18 08:43 Zofran IVPUSH 01/31/18 08:33 4 mg ONETIME ONE Administration - Re-Assessments/Exams Free Text/Narrative Re-Assessment/Exam: 01/31/18 08:39 I ordered an IV saline lock, dilaudid 0.5mg IV, zofran 4mg IV, and labs. 01/31/18 09:34 She is still having pain so I ordered dilaudid 0.5mg IV and that did not help so I ordered fentanyl 100mcg IV. Her WBC was normal. Her Hgb was low again at 7.5. That last time she was here in December it was 7. Her platelets are normal. Her Na is a little low at 133. Her K was normal at 4.5. Her anion gap was elevated at 21.5. Her creatinine was elevated at 4.2 with a GFR of 10. Her glucose was 73. Her magnesium was low at 1.6. Her lipase was elevated at 564. 01/31/18 11:13 Her family would like her to go back [facility] the [facility]. I am not sure if they can control her pain there. I gave her a total of 1mg of dilaudid, 200mcg of fentanyl, and morphine 4mg IV. I feel she may need to be admitted here. I called our hospitalist Dr Carrizales and she came to talk to the family. She recommended we put a fentanyl patch on at 12mcg and toradol 30mg IV and she can go back with morphine 1mg every hour as needed for pain. Departure - Departure Time of Disposition: 11:20 Disposition: DC/[facility] Condition: Poor Clinical Impression: Generalized pain Headache Qualifiers: Headache type: unspecified Headache chronicity pattern: acute headache Intractability: not intractable Qualified Code(s): R51 - Headache Renal failure Qualifiers: Renal failure chronicity: acute Acute renal failure type: unspecified Qualified Code(s): N17.9 - Acute kidney failure, unspecified Anemia Qualifiers: Anemia type: other cause Other causes of anemia: other cause, not classified Qualified Code(s): D64.89 - Other specified anemias - Discharge Information Prescriptions: fentaNYL [Duragesic] 1 patch TD Q72H #3 patch Referrals: Senthil Bernard Jr, MD [Primary Care Provider] - Forms: ED Department Discharge Additional Instructions: Use the fentanyl patch 12mcg every 3 days. She may also have morphine 1mg IV every hour as needed for any pain. Consult hospice tomorrow. - My Orders Last 24 Hours: My Active Orders 01/31/18 08:31 Cardiac Monitoring [RC] . DIRECTED Sodium Chloride 0.9% [Saline Flush] 10 ml FLUSH ASDIRECTED PRN Peripheral IV Insertion Adult [OM.PC] Stat 01/31/18 08:32 Peripheral IV Care [RC] . DIRECTED 01/31/18 11:00 fentaNYL [Duragesic] 12 mcg TRDERM Q72H - Assessment/Plan Last 24 Hours: My Active Orders 01/31/18 08:31 Cardiac Monitoring [RC] . DIRECTED Sodium Chloride 0.9% [Saline Flush] 10 ml FLUSH ASDIRECTED PRN Peripheral IV Insertion Adult [OM.PC] Stat 01/31/18 08:32 Peripheral IV Care [RC] . DIRECTED 01/31/18 11:00 fentaNYL [Duragesic] 12 mcg TRDERM Q72H
[2018-01-31] MEDS ORDERED: fentaNYL 100 MCG/2 ML SDV IVPUSH ONE ×3 (09:17→10:26)
[2018-01-31] MEDS ORDERED: Morphine 4 MG/ML Syringe IVPUSH ONE (10:00)
[2018-01-31] MEDS ORDERED: Ketorolac 30 MG/ML SDV IVPUSH ONE (10:57)
[2018-01-31] MEDS ORDERED: fentaNYL 12 MCG/HR Transdermal Patch TRDERM SCH (11:00)
--- NOTE | 2018-01-31 13:21 | PCM.HP ---
H&P History of Present Illness - General Date of Service: 01/31/18 Admit Problem/Dx: Admission Diagnosis/Problem Admission Diagnosis/Problem Renal failure Source of Information: Family, Provider History Limitations: Reports: No Limitations - History of Present Illness Initial Comments - Free Text/Narative: 88 year old female with acute on chronic renal failure presents with generalized pain. The patient's family had been making plans for hospice care, however this remained in the planning stages. Over the last 5-6 days she has become progressive weaker. 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 There has been nausea and vomiting, no appetite. Moreover the patient has been hypoxic; initially the hospitalist service and ED attempted to make the patient comfortable after discussing the family's decision to go back to the SNF. However the family wants hospice at her home, not at the long term. The patient will be admitted for comfort care, a hospice consult will be requested on Thursday, . Onset of Symptoms: Reports: Unknown/Unsure Duration of Symptoms: Reports: Day(s):, Getting Worse Location: Reports: Generalized Severity: Severe Improves with: Reports: None Worsens with: Reports: None Associated Symptoms: Reports: Confusion, Shortness of Breath Generalized Pain Score (Numeric/FACES): 8 - Related Data Allergies/Adverse Reactions: Allergies Allergy/AdvReac Type Severity Reaction Status Date / Time No Known Allergies Allergy Verified 01/31/18 13:55 Home Medications: Home Meds Allopurinol [Zyloprim] 100 mg PO DAILY 10/11/14 [History] Amitriptyline [Elavil] 50 mg PO BEDTIME 10/11/14 [History] Fluticasone/Salmeterol [Advair 100-50] 1 puff INH DAILY 10/11/14 [History] Omeprazole 20 mg PO BIDAC 10/11/14 [History] Enalapril [Vasotec] 5 mg PO DAILY 07/05/15 [History] Carvedilol 12.5 mg PO BID 06/18/17 [History] Iron Polysaccharides Complex [Ferrex 150] 1 cap PO DAILY 06/18/17 [History] Ursodiol 300 mg PO BID 06/18/17 [History] Aspirin [Adult Low Dose Aspirin EC] 81 mg PO DAILY 08/13/17 [History] Hydrocodone/Acetaminophen [Hydrocodon-Acetaminophen 5-325] 1 tab PO BID PRN 11/28 [History] L.acidoph,Paracasei, B.lactis [Probiotic] 1 cap PO DAILY 08/13/17 [History] Folic Acid 1 mg PO DAILY #30 tablet 08/17/17 [Rx] Acetaminophen [Tylenol] 650 mg PO Q6H PRN 01/31/18 [History] Acetaminophen [Tylenol] 650 mg PO QID 01/31/18 [History] Ammonia Solution, Strong/MSM [Penetran + Plus 1.5%] 75 gm TP BID 01/31/18 [ History] Ascorbic Acid [Vitamin C] 500 mg PO BID 01/31/18 [History] Calcium Carbonate [Tums] 2 tab PO Q6H PRN 01/31/18 [History] Furosemide 40 mg PO BID 01/31/18 [History] Hydrocodone/Acetaminophen [Hydrocodon-Acetaminophen 5-325] 1 tab PO Q6H PRN [History] Loperamide HCl [Imodium A-D] 2 tab PO Q6HR PRN 01/31/18 [History] Ondansetron [Zofran ODT] 4 mg PO Q6H PRN 01/31/18 [History] fentaNYL [Duragesic] 1 patch TD Q72H #3 patch 01/31/18 [Rx] Past Medical History HEENT History: Reports: Hard of Hearing Cardiovascular History: Reports: Hypertension Respiratory History: Reports: COPD Gastrointestinal History: Reports: Other (See Below) Other Gastrointestinal History: esophageal strictures Genitourinary History: Reports: UTI, Recurrent Other Genitourinary History: 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: Musculoskeletal History: Reports: Arthritis Neurological History: Reports: Migraines Endocrine/Metabolic History: Reports: None Hematologic History: Reports: Anemia Other Hematologic History: hemolytic anemia Immunologic History: Reports: None Oncologic (Cancer) History: Reports: Other (See Below) Other Oncologic History: malignant melanoma on different areas of body Dermatologic History: Reports: Benign Melanoma - Infectious Disease History Infectious Disease History: Reports: C-Difficile Other Infectious Disease History: about 1.5 years ago - Past Surgical History Head Surgeries/Procedures: Reports: None HEENT Surgical History: Reports: Tonsillectomy GI Surgical History: Reports: Cholecystectomy, Colonoscopy, EGD, Esophageal Dilatation Female Surgical History: Reports: Mastectomy Endocrine Surgical History: Reports: None Neurological Surgical History: Reports: Other (See Below) Other Neurological Surgeries/Procedures: surgery for spinal stenosis Musculoskeletal Surgical History: Reports: Hip Replacement, Knee Replacement, Shoulder Replacement Other Musculoskeletal Surgeries/Procedures:: spinal stenosis surgery Oncologic Surgical History: Reports: None Social & Family History - Family History Family Medical History: Noncontributory Cardiac: Reports: Heart Failure Oncologic: Reports: Leukemia, Other (See Below) Other Oncologic Family History: parent - Tobacco Use Smoking Status *Q: Never Smoker Years of Tobacco use: 53 Packs/Tins Daily: 1 Used Tobacco, but Quit: Yes Month/Year Tobacco Last Used: 17 yrs ago Second Hand Smoke Exposure: No - Caffeine Use Caffeine Use: Reports: Coffee, Soda, Tea - Alcohol Use Days Per Week of Alcohol Use: 0 - Recreational Drug Use Recreational Drug Use: No H&P Review of Systems - Review of Systems: Review Of Systems: ROS reveals no pertinent complaints other than HPI. Exam - Exam Exam: See Below - Vital Signs Vital Signs: Last Vital Signs Temp 36.4 C 01/31/18 08:09 Pulse 78 01/31/18 08:09 Resp 18 01/31/18 08:09 BP 66/41 L 01/31/18 08:09 Pulse Ox 88 L 01/31/18 08:09 Weight: 56.699 kg - Exam Quality Assessment: Supplemental Oxygen, DVT Prophylaxis, Skin Breakdown General: Lethargic HEENT: Hearing Intact, Mucosa Moist & [place], Nares Patent, Posterior Pharynx Clear, Pupils Equal, Pupils Reactive Neck: Trachea Midline Lungs: Normal Respiratory Effort, Decreased Breath Sounds Cardiovascular: Regular Rate GI/Abdominal Exam: Normal Bowel Sounds, Soft, Non-Tender, No Organomegaly, No Distention (Female) Exam: Deferred Rectal (Female) Exam: Deferred Back Exam: Normal Inspection Extremities: Normal Inspection, Pedal Edema, Slow Capillary Refill Neurological: Cranial Nerves Intact Neuro Extensive - Mental Status: Withdraws to Pain Neuro Extensive - Motor, Sensory, Reflexes: CN II-XII Intact Psychiatric: Other (somnolence) - Patient Data Lab Results Last 24 hrs: Laboratory Results - last 24 hr 01/31/18 01/31/18 Range/Units 08:45 08:57 WBC 5.53 (3.98-10.04) K/mm3 RBC 2.23 L (3.98-5.22) M/mm3 Hgb 7.5 L (11.2-15.7) gm/L Hct 23.9 L (34.1-44.9) % MCV 107.2 H (79.4-94.8) fl MCH 33.6 H (25.6-32.2) pg MCHC 31.4 L (32.2-35.5) g/dl RDW Std Deviation 54.5 H (36.4-46.3) fL Plt Count 203 (182-369) K/mm3 MPV 9.4 (9.4-12.3) fl Neut % (Auto) 87.6 H (34.0-71.1) % Lymph % (Auto) 3.3 L (19.3-51.7) % [place] % (Auto) 8.7 (4.7-12.5) % Eos % (Auto) 0.2 L (0.7-5.8) Baso % (Auto) 0.0 L (0.1-1.2) % Neut # (Auto) 4.85 (1.56-6.13) K/mm3 Lymph # (Auto) 0.18 L (1.18-3.74) K/mm3 [place] # (Auto) 0.48 H (0.24-0.36) K/mm3 Eos # (Auto) 0.01 L (0.04-0.36) K/mm3 Baso # (Auto) 0.00 L (0.01-0.08) K/mm3 Manual Slide Review Abnormal smear Sodium 133 L (136-145) mEq/L Potassium 4.5 (3.5-5.1) mEq/L Chloride 97 L (98-107) mEq/L Carbon Dioxide 19 L (21-32) mEq/L Anion Gap 21.5 H (5-15) BUN 180 H (7-18) mg/dL Creatinine 4.2 H (0.55-1.02) mg/dL Est Cr Clr Drug Dosing 7.51 mL/min Estimated GFR (MDRD) 10 (>60) mL/min BUN/Creatinine Ratio 42.9 H (14-18) Glucose 73 L (83-115) mg/dL Calcium 7.4 L (8.5-10.1) mg/dL Magnesium 1.6 L (1.8-2.4) mg/dl Total Bilirubin 0.5 (0.2-1.0) mg/dL AST 22 (15-37) U/L ALT 18 (14-59) U/L Alkaline Phosphatase 68 (46-116) U/L Total Protein 3.8 L (6.4-8.2) g/dl Albumin 1.3 L (3.4-5.0) g/dl Globulin 2.5 gm/dL Albumin/Globulin Ratio 0.5 L (1-2) Lipase 564 H (73-393) U/L Result Diagrams: 01/31/18 08:45 01/31/18 08:57 - Problem List (1) Anemia SNOMED Code(s): 034036486 ICD Code: D64.9 - ANEMIA, UNSPECIFIED Status: Acute Priority: Low Current Visit: Yes Qualifiers: Anemia type: other cause Other causes of anemia: other cause, not classified Qualified Code(s): D64.89 - Other specified anemias (2) Generalized pain SNOMED Code(s): 95698412 ICD Code: R52 - PAIN, UNSPECIFIED Status: Acute Current Visit: Yes (3) Renal failure SNOMED Code(s): 79572823 ICD Code: N19 - UNSPECIFIED KIDNEY FAILURE Status: Acute Current Visit: Yes Qualifiers: Renal failure chronicity: acute Acute renal failure type: unspecified Qualified Code(s): N17.9 - Acute kidney failure, unspecified (4) CKD (chronic kidney disease) stage 3, GFR 30-59 ml/min SNOMED Code(s): 356119208 ICD Code: N18.3 - CHRONIC KIDNEY DISEASE, STAGE 3 (MODERATE) Status: Chronic Priority: Medium Current Visit: No Problem List Initiated/Reviewed/Updated: Yes Orders Last 24hrs: Active Orders 24 hr Category Date Time Status Patient Status [ADT] Routine ADT 01/31/18 12:31 Active Cardiac Monitoring [RC] . DIRECTED Care 01/31/18 08:31 Active Peripheral IV Care [RC] . DIRECTED Care 01/31/18 08:32 Active Sodium Chloride 0.9% [Saline Flush] Med 01/31/18 08:31 Active 10 ml FLUSH ASDIRECTED PRN fentaNYL [Duragesic] Med 01/31/18 11:00 Active 12 mcg TRDERM Q72H Comfort Measures [OM.PC] Routine Oth 01/31/18 12:16 Ordered Peripheral IV Insertion Adult [OM.PC] Stat Oth 01/31/18 08:31 Ordered Medication Orders Fentanyl (Duragesic) 12 mcg TRDERM Q72H [facility] Last Admin: 01/31/18 11:13 Dose: 12 mcg Sodium Chloride (Saline Flush) 10 ml FLUSH ASDIRECTED PRN PRN Reason: Keep Vein Open Last Admin: 01/31/18 08:43 Dose: 10 ml Assessment/Plan Comment:: Impression: 88 year old female with acute on chronic renal failure; ARF, eGFR 10 Failure to thrive at end of life has been admitted for Comfort Care Hypoalbuminemia Hyponatremia Hypomagnesemia Chronic CKD III-IV COPD HTN Anemia, NOS Malignant melanoma C Diff Plan: IVF Pain management Comfort Care SW re: Hospice Prognosis: Grave
[2018-01-31] MEDS ORDERED: Ondansetron 4 MG/2 ML SDV IVPUSH PRN (13:28)
[2018-01-31] MEDS ORDERED: LORazepam 2 MG/ML SDV IVPUSH PRN (13:29)
[2018-01-31] MEDS ORDERED: HYDROmorphone 1 MG/ML Syringe IVPUSH PRN ×2 (13:30→17:09)
[2018-01-31] MEDS ORDERED: Dextrose 5%-0.45% NaCl 1,000 ML IV SCH (14:15)
[2018-01-31 14:54] VITALS: BP 46/26
[2018-01-31] MEDS ORDERED: Morphine 2 MG/ML Syringe IVPUSH PRN (20:05)
--- NOTE | 2018-02-01 09:09 | PCM.DCSUM1 ---
Discharge Summary - Hospital Course Free Text/Narrative:: 88 year old female with acute on chronic renal failure presents with generalized pain. The patient's family had been making plans for hospice care, however this remained in the planning stages. Over the last 5-6 days she has become progressive weaker. One day [employer], the patient made no urine, there has been a worsening of renal function. There has been nausea and vomiting, no appetite. Moreover the patient has been hypoxic; initially the hospitalist service and ED attempted to make the patient comfortable after discussing the family's decision to go back to the SNF. However the family wants hospice at her home, not at the retirement. The patient will be admitted for comfort care, a hospice consult will be requested on 02/01/18. The plan was home hospice; comfort care was provided however the patient at 2151 hour on the same day of admission, 01/31/18. - Discharge Data Discharge Date: 01/31/18 Discharge Disposition: 20 Condition: - Discharge Diagnosis/Problem(s) (1) Anemia SNOMED Code(s): 713806968 ICD Code: D64.9 - ANEMIA, UNSPECIFIED Status: Acute Priority: Low Qualifiers: Anemia type: other cause Other causes of anemia: other cause, not classified Qualified Code(s): D64.89 - Other specified anemias (2) Generalized pain SNOMED Code(s): 71451072 ICD Code: R52 - PAIN, UNSPECIFIED Status: Acute (3) Renal failure SNOMED Code(s): 48541363 ICD Code: N19 - UNSPECIFIED KIDNEY FAILURE Status: Acute Qualifiers: Renal failure chronicity: acute Acute renal failure type: unspecified Qualified Code(s): N17.9 - Acute kidney failure, unspecified (4) CKD (chronic kidney disease) stage 3, GFR 30-59 ml/min SNOMED Code(s): 169905055 ICD Code: N18.3 - CHRONIC KIDNEY DISEASE, STAGE 3 (MODERATE) Status: Chronic Priority: Medium - Discharge Plan Prescriptions/Med Rec: fentaNYL [Duragesic] 1 patch TD Q72H #3 patch Home Medications: Home Meds Allopurinol [Zyloprim] 100 mg PO DAILY 10/11/14 [History] Amitriptyline [Elavil] 50 mg PO BEDTIME 10/11/14 [History] Fluticasone/Salmeterol [Advair 100-50] 1 puff INH DAILY 10/11/14 [History] Omeprazole 20 mg PO BIDAC 10/11/14 [History] Enalapril [Vasotec] 5 mg PO DAILY 07/05/15 [History] Carvedilol 12.5 mg PO BID 06/18/17 [History] Iron Polysaccharides Complex [Ferrex 150] 1 cap PO DAILY 06/18/17 [History] Ursodiol 300 mg PO BID 06/18/17 [History] Aspirin [Adult Low Dose Aspirin EC] 81 mg PO DAILY 08/13/17 [History] Hydrocodone/Acetaminophen [Hydrocodon-Acetaminophen 5-325] 1 tab PO BID PRN 11/28 [History] L.acidoph,Paracasei, B.lactis [Probiotic] 1 cap PO DAILY 08/13/17 [History] Folic Acid 1 mg PO DAILY #30 tablet 08/17/17 [Rx] Acetaminophen [Tylenol] 650 mg PO Q6H PRN 01/31/18 [History] Acetaminophen [Tylenol] 650 mg PO QID 01/31/18 [History] Ammonia Solution, Strong/MSM [Penetran + Plus 1.5%] 75 gm TP BID 01/31/18 [ History] Ascorbic Acid [Vitamin C] 500 mg PO BID 01/31/18 [History] Calcium Carbonate [Tums] 2 tab PO Q6H PRN 01/31/18 [History] Furosemide 40 mg PO BID 01/31/18 [History] Hydrocodone/Acetaminophen [Hydrocodon-Acetaminophen 5-325] 1 tab PO Q6H PRN [History] Loperamide HCl [Imodium A-D] 2 tab PO Q6HR PRN 01/31/18 [History] Ondansetron [Zofran ODT] 4 mg PO Q6H PRN 01/31/18 [History] fentaNYL [Duragesic] 1 patch TD Q72H #3 patch 01/31/18 [Rx] Patient Handouts: Anemia, Chronic Kidney Disease, Adult, [id number], General Headache Without Cause, [id number] Forms: ED Department Discharge Referrals: Senthil Bernard Jr, MD [Primary Care Provider] - - Discharge Summary/Plan Comment DC Time >30 min.: No Discharge Summary/Plan Comment: Impression: Hospital course was very brief with care as outlined below; the patient at 2151 hour on the day of admission. 88 year old female with acute on chronic renal failure; ARF, eGFR 10 Failure to thrive at end of life has been admitted for Comfort Care Hypoalbuminemia Hyponatremia Hypomagnesemia Chronic CKD III-IV COPD HTN Anemia, NOS Malignant melanoma C Diff Plan: IVF-->refused by daughter Pain management Comfort Care SW re: Home Hospice - General Info Date of Service: 01/31/18 - Patient Data Vitals - Most Recent: Last Vital Signs Temp 35.8 C 01/31/18 13:33 Pulse 64 01/31/18 16:21 Resp 24 H 01/31/18 13:33 BP 46/26 L 01/31/18 13:33 Pulse Ox 79 L 01/31/18 16:21 Weight - Most Recent: 56.699 kg I&O - Last 24 hours: Intake & Output 01/31/18 02/01/18 02/01/18 22:59 06:59 14:59 Intake Total 0 Balance 0 Lab Results - Last 24 hrs: Laboratory Results - last 24 hr 01/31/18 01/31/18 Range/Units 08:57 16:05 Sodium 133 L (136-145) mEq/L Potassium 4.5 (3.5-5.1) mEq/L Chloride 97 L (98-107) mEq/L Carbon Dioxide 19 L (21-32) mEq/L Anion Gap 21.5 H (5-15) BUN 180 H (7-18) mg/dL Creatinine 4.2 H (0.55-1.02) mg/dL Est Cr Clr Drug Dosing 7.51 mL/min Estimated GFR (MDRD) 10 (>60) mL/min BUN/Creatinine Ratio 42.9 H (14-18) Glucose 73 L (83-115) mg/dL Calcium 7.4 L (8.5-10.1) mg/dL Magnesium 1.6 L (1.8-2.4) mg/dl Total Bilirubin 0.5 (0.2-1.0) mg/dL AST 22 (15-37) U/L ALT 18 (14-59) U/L Alkaline Phosphatase 68 (46-116) U/L Total Protein 3.8 L (6.4-8.2) g/dl Albumin 1.3 L (3.4-5.0) g/dl Globulin 2.5 gm/dL Albumin/Globulin Ratio 0.5 L (1-2) Lipase 564 H (73-393) U/L MRSA (PCR) Negative Med Orders - Current: Current Medications Discontinued Medications Fentanyl (Sublimaze) 100 mcg IVPUSH ONETIME ONE Stop: 01/31/18 09:18 Last Admin: 01/31/18 09:22 Dose: 100 mcg Fentanyl (Sublimaze) 100 mcg IVPUSH ONETIME ONE Stop: 01/31/18 10:26 Last Admin: 01/31/18 10:32 Dose: 100 mcg Fentanyl (Sublimaze) 100 mcg IVPUSH ONETIME ONE Stop: 01/31/18 10:27 Last Admin: 01/31/18 11:13 Dose: 100 mcg Fentanyl (Duragesic) 12 mcg TRDERM Q72H [facility] Last Admin: 01/31/18 11:13 Dose: 12 mcg Hydromorphone HCl (Dilaudid) 0.5 mg IVPUSH ONETIME ONE Stop: 01/31/18 08:33 Last Admin: 01/31/18 08:44 Dose: 0.5 mg Hydromorphone HCl (Dilaudid) 0.5 mg IVPUSH ONETIME ONE Stop: 01/31/18 08:48 Last Admin: 01/31/18 09:05 Dose: 0.5 mg Hydromorphone HCl (Dilaudid) 1 mg IVPUSH Q4H PRN PRN Reason: Breakthrough Pain Last Admin: 01/31/18 14:18 Dose: 1 mg Hydromorphone HCl (Dilaudid) 1 mg IVPUSH Q2H PRN PRN Reason: Breakthrough Pain Dextrose/Sodium Chloride (Dextrose 5%-1/2 Ns) 1,000 mls @ 50 mls/hr IV ASDIRECTED [facility] Ketorolac Tromethamine (Toradol) 30 mg IVPUSH ONETIME ONE Stop: 01/31/18 10:58 Last Admin: 01/31/18 11:13 Dose: 30 mg Lorazepam (Ativan) 0.5 mg IVPUSH Q6H PRN PRN Reason: restlessness Last Admin: 01/31/18 16:29 Dose: 0.5 mg Morphine Sulfate (Morphine) 4 mg IVPUSH ONETIME ONE Stop: 01/31/18 10:01 Last Admin: 01/31/18 10:03 Dose: 4 mg Morphine Sulfate (Morphine) 2 mg IVPUSH Q2H PRN PRN Reason: Pain Ondansetron HCl (Zofran) 4 mg IVPUSH ONETIME ONE Stop: 01/31/18 08:33 Last Admin: 01/31/18 08:43 Dose: 4 mg Ondansetron HCl (Zofran) 4 mg IVPUSH Q8H PRN PRN Reason: Nausea/Vomiting Sodium Chloride (Saline Flush) 10 ml FLUSH ASDIRECTED PRN PRN Reason: Keep Vein Open Last Admin: 01/31/18 08:43 Dose: 10 ml
== END 2018-01-31 23:10 | disposition expired | DRG 948 ==
LOC: JD.ED 08:06 → JD.MS 12:31
PROVIDERS: ADMIT Internal Medicine Cardiovascular Disease; ATTEND Internal Medicine Cardiovascular Disease
DX: R52 Pain, unspecified (principal); I11.0 Hypertensive heart disease with heart failure; D64.89 Other specified anemias; N17.9 Acute kidney failure, unspecified; N28.9 Disorder of kidney and ureter, unspecified; I13.0 Hypertensive heart and chronic kidney disease with heart failure and stage 1 through stage 4 chronic kidney disease, or unspecified chronic kidney disease; R06.02 Shortness of breath; E87.1 Hypo-osmolality and hyponatremia; N18.4 Chronic kidney disease, stage 4 (severe); G43.909 Migraine, unspecified, not intractable, without status migrainosus; Z66 Do not resuscitate; Z51.5 Encounter for palliative care; I50.9 Heart failure, unspecified; R09.02 Hypoxemia; R62.7 Adult failure to thrive; R11.2 Nausea with vomiting, unspecified; E88.09 Other disorders of plasma-protein metabolism, not elsewhere classified; E83.42 Hypomagnesemia; D64.9 Anemia, unspecified; H54.7 Unspecified visual loss; M19.90 Unspecified osteoarthritis, unspecified site; R53.81 Other malaise; R53.83 Other fatigue; R53.1 Weakness; R10.9 Unspecified abdominal pain; R41.0 Disorientation, unspecified; R51 Headache; Z85.820 Personal history of malignant melanoma of skin; Z90.49 Acquired absence of other specified parts of digestive tract; Z90.10 Acquired absence of unspecified breast and nipple; Z79.82 Long term (current) use of aspirin; Z79.891 Long term (current) use of opiate analgesic; Z79.899 Other long term (current) drug therapy; Z96.649 Presence of unspecified artificial hip joint; Z96.659 Presence of unspecified artificial knee joint; Z87.440 Personal history of urinary (tract) infections; Z96.619 Presence of unspecified artificial shoulder joint; Z87.891 Personal history of nicotine dependence; J44.9 Chronic obstructive pulmonary disease, unspecified
CPT/HCPCS: 36415; 80053; 83690; 83735; 85025; A9270; J1170 ×2; J1885; J2270; J2405; J3010 ×3; J7050; 87641; 96374; 96375; 96376; 99285-25; J2060